=== PATIENT | female | born 1965 | race Caucasian/White ===

== ENCOUNTER 2019-09-03 09:11 | Outpatient (RCR) | payer OTHER, MEDICARE, SELFPAY | END 2019-12-02 23:59 | disposition home or self-care (01) | LOC: ANHDMC 09:11 | PROVIDERS: PCP Family Medicine; Visit Provider Family Medicine | DX: E11.65 Type 2 diabetes mellitus with hyperglycemia (principal); Z71.89 Other specified counseling | CPT/HCPCS: G0108 ==

== ENCOUNTER 2019-11-07 14:00 | Outpatient (CLI) | payer OTHER, MEDICARE, SELFPAY ==
--- NOTE | ~2019-11-07 | MM_ITS ---
EXAMINATION: MM diagnostic ling BI w crissy HISTORY: Bilateral breast masses TECHNIQUE: Craniocaudal, mediolateral, and mediolateral oblique 3-D tomosynthesis images of the breas ts were performed and synthetic 2-D images were generated. CAD analysis was submitted and interpreted . COMPARISON: 04/05/2019, 01/22/2018, 12/13/2016, 09/24/2015 BREAST PARENCHYMAL COMPOSITION: The breasts are heterogeneously dense, which may obscure small masses . FINDINGS: Scattered benign-appearing calcifications are present. There is no evidence of suspicious m ass, calcification, or architectural distortion in either breast to suggest malignancy. There has b een no suspicious interval change. IMPRESSION: 1. No mammographic evidence of malignancy. 2. Routine annual screening mammography is recommended. Patient was reportedly instructed to have tray nnual mammograms due to family history. If supplemental screening is necessary based on calculated ri sk, would recommend screening mammography and breast MRI at alternating six-month intervals. BI-RADS Category 2: Benign finding(s). Reviewed, dictated and finalized at location A. UCE LABORER IMPRESSION: 1. No mammographic evidence of malignancy. 2. Routine annual screening mammography is recommended. Patient was reportedly instructed to have biannual mammograms due to family history. If supplemental s creening is necessary based on calculated risk, would recommend screening mammo graphy and breast MRI at alternating six-month intervals. BI-RADS Category 2: Benign finding(s).
== END 2019-11-07 14:01 | disposition home or self-care (01) ==
LOC: ANHIMG 14:06
PROVIDERS: PCP Family Medicine; Visit Provider Nurse Practitioner Family
DX: R92.8 Other abnormal and inconclusive findings on diagnostic imaging of breast (principal); N63.10 Unspecified lump in the right breast, unspecified quadrant; N63.20 Unspecified lump in the left breast, unspecified quadrant
CPT/HCPCS: 77062; 77066; G0279

== ENCOUNTER 2020-08-12 07:30 | Outpatient (RCR) | payer OTHER, MEDICARE, SELFPAY ==
[2020-06-19 09:51] VITALS: PULSE 70
--- NOTE | 2020-07-22 08:21 | PCCPR ---
Addendum entered by Marta Ruelas RN 07/23/20 08:27: Divya called left message today still not feeling well. Original Note: Absent today, not feeling well.
== END 2020-08-12 09:11 | disposition home or self-care (01) ==
LOC: ANHCPREHAB 07:30
PROVIDERS: PCP Family Medicine; Visit Provider Internal Medicine Cardiovascular Disease
DX: I50.89 Other heart failure (principal)
CPT/HCPCS: 93798

== ENCOUNTER 2020-10-06 09:27 | Emergency (ER) | payer OTHER, MEDICARE, SELFPAY ==
--- NOTE | ~2020-10-06 | CT_ITS ---
EXAMINATION: CT lumbar spine wo [facility] EXAM DATE: 10/06/2020 10:03 INDICATION: Fall, posterior fusion. Back pain. Initial encounter. TECHNIQUE: Spiral CT lumbar spine was performed without contrast. Axial, coronal and sagittal images of the lumbar spine were reviewed. The dose-length product (DLP) for this examination was 879.02 mGy- cm. The exposure was tailored according to patient size (auto mA exposure control), and iterative re construction (ASIR) was used as additional dose reduction technique. There is no prior study for luis hargrove. FINDINGS: Anterior and interbody fusion L5-S1. No spondylolysis. The vertebral bodies are aligned in the AP dim ension. Mild disc disease from T11 through L5. Mild upper lumbar, moderate lower lumbar facet arthrop athy. There is no evidence of acute lumbar fracture. There is no disc space widening or traumatic v ertebral body subluxation suspected. Paraspinal soft tissue is unremarkable. Mild thoracolumbar sco liosis. A detailed level by level evaluation of spondylosis can be added as addendum if requested. IMPRESSION: 1. Intact L5-S1 fusion. No fracture. 2. Mild to moderate lumbar spondylosis. Reviewed, dictated and finalized at location A. T SYSTEM DIRECTOR
--- NOTE | ~2020-10-06 | CT_ITS ---
EXAMINATION: CT brain wo con DATE: 10/06/2020 10:03 INDICATION: Head pain post fall TECHNIQUE: Computed tomography (CT) of the head was performed without intravenous contrast. Sagittal and coronal reconstructions were performed. The mA was adjusted according to patient size. Iterative reconstruction technique was employed. The dose-length product was 605.33 mGy-cm. COMPARISON: MR dated 07/03/2018 FINDINGS: No fracture. No acute intracranial hemorrhage, acute infarction or abnormal extra axial fluid collect ion. Ventricles are normal and symmetric. No mass/mass effect. The orbits, paranasal sinuses and mast oid air cells are normal. IMPRESSION: 1. Normal brain. No fracture or acute intracranial process. Reviewed, dictated and finalized at location A. ILLERY MILLER HELPER
--- NOTE | ~2020-10-06 | CT_ITS ---
EXAMINATION: CT cervical spine wo con DATE: 10/06/2020 10:02 INDICATION: Head and back pain post fall TECHNIQUE: Computed tomography (CT) of the cervical spine was performed without intravenous contrast. Automated exposure control and iterative reconstruction technique were employed. The dose-length pro duct was 324.06 mGy-cm. COMPARISON: 06/18/2018 FINDINGS: Again seen is C5-C7 anterior spinal fusion with anterior plate and screw fixation and interbody fusio n devices. There is prominent streak artifact surrounding the interbody fusion devices. Alignment rem ains essentially anatomic. No acute fracture. Unfused vertebral body and disc heights are normal. No significant interval change in multilevel bilateral cervical facet osteoarthritis, severe on the left at C3-C4 and C4-C5 or results in mild bilateral neural foraminal stenosis. No central canal stenosis . Cervical soft tissues, airway and apices of lungs are unremarkable. IMPRESSION: 1. No acute osseous abnormality. 2. Cervical facet arthropathy and instrumented C5-C7 anterior spinal fusion. Reviewed, dictated and finalized at location A. MILL OPERATOR
[2020-10-06 09:30] VITALS: BP 145/92; PULSE 83; RESP 16; TEMP 36.7; O2SAT 100
--- NOTE | 2020-10-06 09:40 | ED.GENADULT ---
HPI - General Adult General Chief complaint: Fall Stated complaint: fall Time Seen by Provider: 10/06/20 09:30 Source: patient Mode of arrival: ambulatory Limitations: no limitations History of Present Illness HPI narrative: Patient presents with chief complaint of headache, foggy feeling, pain to the posterior aspect of her head, neck and low back after slipping on ice and falling in the [facility] parking lot. Patient states that she is also feeling burning sensations to her neck and low back where she had a fusion of her C6 and 7 and L5-S1 multiple years ago. Patient denies any loss of sensation or motor function to her upper or lower extremities. Patient denies loss of consciousness, changes in vision or hearing, vomiting. Patient states that she fell backwards. She states she did hit her left hand on the cement but that it does not have any tenderness at this time. She denies any other areas of pain or discomfort. Patient denies any chest pain, shortness of breath. Related Data Home Medications Medication Instructions Recorded Confirmed duloxetine 60 mg capsule,delayed 60 mg PO DAILY 08/22/19 06/19/20 release ranolazine 500 mg tablet,extended 500 mg PO Q12H 03/17/20 06/19/20 release,12 hr spironolactone 25 mg tablet 25 mg PO BID 06/15/20 06/19/20 aspirin [Aspirin Low Dose] 81 mg PO DAILY 06/19/20 06/19/20 cyclobenzaprine 5 mg PO BID PRN 06/19/20 06/19/20 gabapentin 200 mg PO TID 06/19/20 06/19/20 onabotulinumtoxinA [Botox] 200 unit IM ONCE 06/19/20 06/19/20 rizatriptan [Maxalt] See Rx Instructions PO .COMPLEX PRN 06/19/20 06/19/20 ropinirole 0.25 mg PO 06/19/20 carvedilol 25 mg PO BID 07/06/20 07/06/20 sacubitril-valsartan [Entresto] 1 tablet PO BID 07/06/20 07/06/20 ascorbic acid (vitamin C) [Vitamin 10/06/20 10/06/20 C] dapagliflozin [Farxiga] mg 10/06/20 insulin detemir U-100 [Levemir unit SUBCUT 10/06/20 FlexTouch U-100 Insuln] levothyroxine [Synthroid] 10/06/20 metformin mg PO 10/06/20 omeprazole 10/06/20 rizatriptan mg 10/06/20 ropinirole mg 10/06/20 sacubitril-valsartan [Entresto] tablet 10/06/20 spironolactone 10/06/20 Allergies Allergy/AdvReac Type Severity Reaction Status Date / Time amitriptyline Allergy Severe NIGHTMARES Verified 06/15/20 09:39 Sulfa (Sulfonamide Allergy Severe DRUG Verified 06/15/20 09:39 Antibiotics) INDUCED HEPATITIS trazodone Allergy Unknown SUICIDAL Verified 06/15/20 09:39 THOUGHTS baclofen AdvReac Nausea and Verified 10/06/20 09:45 Vomiting nitrofurantoin AdvReac Vomiting Verified 10/06/20 09:45 [From Macrobid] sumatriptan [From Imitrex] AdvReac Vomiting Verified 10/06/20 09:45 tizanidine AdvReac Hallucinati Verified 10/06/20 09:45 ng Review of Systems Review of Systems: Narrative: CONSTITUTIONAL: Denies fever, chills, or sweats. EYES: Denies visual changes, redness, or discharge. ENT: Denies rhinorrhea, congestion, sore throat, or otalgia. CARDIOVASCULAR: Denies chest pain, palpitations, or edema. RESPIRATORY: Denies cough or dyspnea. GASTROINTESTINAL: Denies abdominal pain, nausea, vomiting, or diarrhea. GENITOURINARY: Denies dysuria or hematuria. SKIN: Denies rash or itching. MUSCULOSKELETAL: Denies back pain, joint pain, or myalgia. NEUROLOGIC: Reports headache and tingling sensation denies headache, dizziness, or weakness. PSYCHIATRIC: Denies anxiety or depression. [facility] Past Medical History Medical History (Updated 10/06/20 @ 10:28 by Elizabeth Shen PA-C) Adult hypothyroidism Anxiety Arthritis Bronchitis Cervical spondylosis with myelopathy and radiculopathy Chronic back pain Chronic pain disorder DDD (degenerative disc disease) Depression Diabetes mellitus Fibromyalgia HTN (hypertension) Hyperlipidemia Major depressive disorder, recurrent, moderate Migraine Muscle spasm Ovarian cyst Peripheral neuropathy Pneumonia Sleep apnea in adult Thyroid ca Type 2 diabetes mellitus without complications UTI (urinar
--- NOTE | 2020-10-06 10:25 | PC.NURSE ---
C-COLLAR REMOVED PER ALECIA MASS ORDER
== END 2020-10-06 10:45 | disposition home or self-care (01) ==
PROVIDERS: Emergency Provider Emergency Medicine; PCP Internal Medicine
DX: S09.90XA Unspecified injury of head, initial encounter (principal); S16.1XXA Strain of muscle, fascia and tendon at neck level, initial encounter; S39.012A Strain of muscle, fascia and tendon of lower back, initial encounter; M79.7 Fibromyalgia; E78.5 Hyperlipidemia, unspecified; I10 Essential (primary) hypertension; E11.42 Type 2 diabetes mellitus with diabetic polyneuropathy; G47.30 Sleep apnea, unspecified; Z87.440 Personal history of urinary (tract) infections; Z85.850 Personal history of malignant neoplasm of thyroid; Z79.82 Long term (current) use of aspirin; Z79.4 Long term (current) use of insulin; E89.0 Postprocedural hypothyroidism; Z98.1 Arthrodesis status; Z87.891 Personal history of nicotine dependence; M47.816 Spondylosis without myelopathy or radiculopathy, lumbar region; M47.12 Other spondylosis with myelopathy, cervical region; M47.22 Other spondylosis with radiculopathy, cervical region; W00.0XXA Fall on same level due to ice and snow, initial encounter
CPT/HCPCS: 70450; 72125; 72131; 99284; L0140

== ENCOUNTER 2022-09-01 18:36 | Inpatient (IN) | payer OTHER, MEDICARE, SELFPAY ==
[2022-09-01] VITALS (31 sets, daily range): BP systolic 92–117; BP diastolic 52–92; PULSE 100–126; RESP 14–35; TEMP 36.7–36.8; O2SAT 84–99
--- NOTE | ~2022-09-01 | XR_ITS ---
EXAMINATION: XR chest 1V portable INDICATION: Shortness of breath TECHNIQUE: Portable AP chest at 0651 hours COMPARISON: 09/01/2022 FINDINGS: There is elevation of the right hemidiaphragm. There are airspace opacities throughout all lung zones with interval worsening. No pleural effusion or pneumothorax. The heart size is normal. Wood rgical changes are noted in the cervical and thoracolumbar spine. IMPRESSION: 1. Diffuse lung disease, consistent with pneumonia and/or pulmonary edema. Reviewed, dictated and finalized at location A. TICIAN APPRENTICE
--- NOTE | ~2022-09-01 | XR_ITS ---
Portable chest x-ray Comparison: 09/07/2022 Clinical History: Chest pain Findings: Extensive hazy pulmonary disease again present, most compatible pulmonary edema. No pleura l effusions. Cardiomediastinal silhouette is stable. Stable extensive spinal fixation hardware. Impression: Stable extensive ground glass pulmonary disease. Correlate for pulmonary edema versus infection. Reviewed, dictated and finalized at [facility]. KROOM SUPERVISOR Impression: Stable extensive ground glass pulmonary disease. Correlate for pulmonary edema versus infection.
--- NOTE | ~2022-09-01 | XR_ITS ---
EXAMINATION: XR chest 1V portable DATE: 09/01/2022 20:19 INDICATION: Shortness of breath TECHNIQUE: frontal view of the chest was obtained. COMPARISON: Chest radiograph dated 09/22/2019 FINDINGS: Chronic elevation the right hemidiaphragm. Mild left apical pleural-parenchymal scarring. No other ai rspace opacities, pulmonary edema, pleural effusion or pneumothorax. The cardiomediastinal silhouette is within normal limits for AP technique. C5-C7 anterior spinal fusion with interbody fusion device and anterior plate-screw fixation. Partially visualized instrumented posterior spinal fusion with rebecca ateral vertical ailyn and pedicle screw fixation at the lower thoracic spine which extends into the upp er lumbar spine and beyond the inferior margin of the [id number]. IMPRESSION: 1. Chronic elevation the right hemidiaphragm. Reviewed, dictated and finalized at location A. RPRISE APPLICATION DEVELOPER
--- NOTE | ~2022-09-01 | CT_ITS ---
EXAMINATION: CTA chest PE protocol DATE: 09/01/2022 22:43 INDICATION: Shortness of breath TECHNIQUE: Computed tomography (CT) pulmonary angiogram of the chest was performed with 100 mL Omnipa que-350 intravenous contrast. Additional 3D reconstructions utilizing coronal maximum intensity proje ction (MIP) were performed. Automated exposure control and iterative reconstruction technique were em ployed. The dose-length product was 331.55 mGy-cm. COMPARISON: None FINDINGS: . contrast opacification of the pulmonary arteries. There is mild streak artifact from dense contrast in the superior vena cava and right atrium. Mild scattered respiratory motion artifact which decreas es sensitivity in some of the subsegmental pulmonary arteries particularly at the lung bases. No evid ent pulmonary embolism. Compressive atelectasis along the chronically elevated right hemidiaphragm. T here is additional mild dependent atelectasis in the bilateral lower lobes. Additional dependent pred ominant groundglass opacities in both lungs without evidence of the line thickening to suggest pulmon silvana edema and this likely represents additional mild atelectasis related to expiratory phase of imagi ng with concave posterior margins of the trachea. There is significant decrease in AP diameter of the trachea as well as a concave posterior margin to the bilateral mainstem bronchi which suggests trach eomalacia. No pleural effusion or pneumothorax. Heart size is normal. Atherosclerotic coronary artery calcification. No pericardial effusion. Thoracic aorta is normal in caliber with no dissection. Enla rgement of the central pulmonary arteries consistent with pulmonary arterial hypertension. No patholo gically enlarged thoracic lymphadenopathy. Nearly indiscernible mass with avidly enhancing stellate p attern of prominently enhancing central arteries extending over a 3.7 x 2.3 cm region in segment 6 of the liver. This is located at the site of the lesion seen on prior MRI dated 06/12/2012 at which time the lesion demonstrated enhancement characteristics favoring focal nodular hyperplasia. Partially vi sualized instrumented C5-C7 anterior spinal fusion with interbody fusion devices and anterior plate a nd screw fixation. Bilateral vertical ailyn and pedicle screw fixation at T11 and extending caudally be yond the inferior margin of the [id number]. IMPRESSION: 1. No pulmonary embolism. Sensitivity mildly decreased in some of the smaller subsegmental pulmonary arteries at the the lung bases due to respiratory motion. 2. Lower lung and dependent predominant atelectasis greatest along the chronically elevated right hem idiaphragm. 3. Suggestion of tracheomalacia. 4. Ill-defined chronic enhancing mass in the right hepatic lobe at the site of an enhancing mass with temporal enhancement pattern on prior MRI dated 06/12/2012 which along with the chronicity would be m ost consistent with focal nodular hyperplasia. Reviewed, dictated and finalized at location A. K STITCHER IMPRESSION: 1. No pulmonary embolism. Sensitivity mildly decreased in some of the smaller s ubsegmental pulmonary arteries at the the lung bases due to respiratory motion. 2. Lower lung and dependent predominant atelectasis greatest along the chronica lly elevated right hemidiaphragm. 3. Suggestion of tracheomalacia. 4. Ill-defined chronic enhancing mass in the right hepatic lobe at the site of an enhancing mass with temporal enhancement pattern on prior MRI dated 2 which along with the chronicity would be most consistent with focal nodular h yperplasia.
--- NOTE | ~2022-09-01 | XR_ITS ---
Portable chest x-ray Comparison: 09/05/2022 Clinical History: Covid 19 pneumonia Findings: Groundglass pulmonary disease, predominantly bilateral upper lobes is present, with some i nterval improvement in right lung findings from prior exam. Left lung findings are similar. No pleura l effusion or pneumothorax. Cardiomediastinal silhouette is stable. Thoracolumbar spinal fixation flores rdware, as well as separate cervical fixation hardware, again partially imaged. Impression: Bilateral groundglass pulmonary disease, improved in the right lung. Findings could reflect improving pneumonia. Reviewed, dictated and finalized at location M. ITIONISTS Impression: Bilateral groundglass pulmonary disease, improved in the right lung. Findings c ould reflect improving pneumonia.
--- NOTE | ~2022-09-01 | XR_ITS ---
Portable chest x-ray Comparison: 09/03/2022 Clinical History: Pneumonia Findings: Extensive bilateral airspace consolidation is present, right lung worse than left. No pleu ral effusions. Cardiomediastinal silhouette is stable. Stable thoracolumbar spinal fixation hardware , partially imaged. Impression: Extensive bilateral airspace consolidation, right worse in length. Correlate for advanced [place] v ersus bilateral pneumonia. Reviewed, dictated and finalized at location [] [facility] Impression: Extensive bilateral airspace consolidation, right worse in length. Correlate fo r advanced [place] versus bilateral pneumonia.
--- NOTE | 2022-09-01 18:43 | ECG_ITS ---
Measurements Intervals [place] Rate: 112 P: 54 PA: 124 QRS: 4 QRSD: 84 T: 62 QT: 310 QTc: 423 Interpretive Statements SINUS TACHYCARDIA NONSPECIFIC T-WAVE ABNORMALITY ABNORMAL RHYTHM ECG COMPARED TO ECG 09/22/2019 15:48:16 SINUS TACHYCARDIA NOW PRESENT T-WAVE ABNORMALITY NOW PRESENT Electronically Signed On 09-01-2022 20:05:43 SEMICONDUCTOR PACKAGES PLATEMAKER by Lianna Davidson M.D.
[2022-09-01 19:48] LABS: Basophils Percent Auto 0.4 % (0.2-1.2); Eosinophils Percent Auto 0.3 % (0-4.4); Hematocrit 38.4 % (37.0-47.0); Hemoglobin 11.9 g/dL (12.0-15.0); Immature Granulocyte Absolute 0.24 K/mm3 (0.00-0.031); Immature Granulocyte Percent A 2.2 % (0-0.5); Lymphocytes Absolute Auto 1.28 K/mm3 (0.9-3.2); Lymphocytes Percent Auto 11.5 % (18.3-44.2); Mean Corpuscular Hemoglobin 28.9 pg (26-34); Mean Corpuscular Volume 93.2 fl (80-100); Monocytes Absolute Auto 0.6 K/mm3 (0.1-0.6); Monocytes Percent Auto 5.3 % (2.6-8.5); Neutrophils Absolute Auto 8.9 K/mm3 (1.3-6.7); Neutrophils Percent Auto 80.3 % (45.5-73.1); Nucleated Red Blood Cells Perc 0.4 % (0.0-0.2); Platelet Count Result 272 k/mm3 (150-375); Red Blood Count 4.12 M/mm3 (4.2-5.4); Red Cell Distribution Width 16.6 % (11.5-14.5); White Blood Count 11.1 K/mm3 (4.5-10.0)
[2022-09-01 20:05] LABS: Alanine Aminotransferase 33 U/L (6-35); Albumin Level 4.2 g/dL (3.5-5.1); Alkaline Phosphatase 137 U/L (38-126); Anion Gap 7 mmol/L (8-16); Aspartate Amino Transferase 18 U/L (14-36); Bilirubin,Total 0.3 mg/dL (0.2-1.3); Blood Urea Nitrogen 20 mg/dL (7-17); Calcium 9.2 mg/dL (8.4-10.2); Carbon Dioxide 33 mmol/L (22-30); Chloride 93 mmol/L (98-107); Estimated Glomerular Filt Rate > 60; Glucose 164 mg/dL (65-110); Potassium 4.1 mmol/L (3.4-5.0); Sodium 133 mmol/L (137-145)
[2022-09-01] MEDS: LORazepam INJ (*CRX) 2 MG/ML VIAL 0.5 MG IV PUSH (20:26)
[2022-09-01] MEDS: ONDANSETRON INJ 4 MG/2 ML VIAL IV PUSH (20:26)
[2022-09-01] MEDS: HYDROmorphone HCL INJ (*CRX) 1 MG/ML SYR 0.5 MG IV PUSH (20:32)
--- NOTE | 2022-09-01 21:53 | ED.GENADULT ---
HPI - General Adult General Chief complaint: Shortness of Breath/Dyspnea Stated complaint: short of breath, back pain Time Seen by Provider: 09/01/22 19:31 Source: patient and family Mode of arrival: EMS Limitations: no limitations History of Present Illness HPI narrative: 56-year-old with a history of hypertension, hypothyroidism, diabetes burst fracture L4 area L5 s/p surgery done at [facility] in June 2022 was brought in from home with complaints of increased back spasms since early this afternoon. Patient states that she has taken hydrocodone and Flexeril with very minimal relief she also complains of shortness of breath. She denies any fever or chills. Has occasional cough. Onset (ago): day(s) (1) Location: back Severity: moderate Quality: aching Pain Consistency: intermittent Relieving factors: none Exacerbating factors: none Associated symptoms: shortness of breath Related Data Home Medications Medication Instructions Recorded Confirmed spironolactone 25 mg tablet 25 mg PO BID 06/15/20 06/19/20 aspirin 81 mg tablet,delayed 81 mg PO DAILY 06/19/20 06/19/20 release (Nuria Low Dose Aspirin) cyclobenzaprine 5 mg tablet 5 mg PO BID PRN Muscle Spasm 06/19/20 06/19/20 ropinirole 0.25 mg tablet 0.25 mg PO 06/19/20 ascorbic acid (vitamin C) 500 mg 10/06/20 10/06/20 chewable tablet (Vitamin C) rizatriptan 10 mg tablet mg 10/06/20 Allergies Allergy/AdvReac Type Severity Reaction Status Date / Time amitriptyline Allergy Severe NIGHTMARES Verified 09/01/22 20:21 Sulfa (Sulfonamide Allergy Severe DRUG Verified 09/01/22 20:21 Antibiotics) INDUCED HEPATITIS trazodone Allergy Unknown SUICIDAL Verified 09/01/22 20:21 THOUGHTS baclofen AdvReac Nausea and Verified 09/01/22 20:21 Vomiting nitrofurantoin AdvReac Vomiting Verified 09/01/22 20:21 [From Macrobid] sumatriptan [From Imitrex] AdvReac Vomiting Verified 09/01/22 20:21 tizanidine AdvReac Hallucinati Verified 09/01/22 20:21 ng Review of Systems Review of Systems: All systems reviewed & are unremarkable except as noted in HPI and below Constitutional: Constitutional: Reports no additional constitutional complaints Eyes: Eyes: Reports no additional eye complaints ENT: Reports system reviewed and no additional complaints, except as documented Cardiovascular: Cardiovascular: Reports no additional cardiovascular complaints Respiratory: Respiratory: Reports as per HPI Gastrointestinal: Gastrointestinal: Reports no additional gastrointestinal complaints Musculoskeletal: Musculoskeletal: Reports as per HPI Neurologic: Reports system reviewed and no additional complaints, except as documented Psychiatric: Psychiatric: Reports no additional psychiatric complaints PMFSH Past Medical History Medical History Adult hypothyroidism Anxiety Arthritis Bronchitis Cervical spondylosis with myelopathy and radiculopathy Chronic back pain Chronic pain disorder DDD (degenerative disc disease) Depression Diabetes mellitus Fibromyalgia HTN (hypertension) Hyperlipidemia Major depressive disorder, recurrent, moderate Migraine Muscle spasm Ovarian cyst Peripheral neuropathy Pneumonia Sleep apnea in adult Thyroid ca Type 2 diabetes mellitus without complications UTI (urinary tract infection) Surgical History Surgical History H/O thyroidectomy History of hysterectomy History of spinal fusion S/P cervical spinal fusion Family History Family History Grandparent Diabetes mellitus, Onset Age: 200 Family history of lupus erythematosus, Onset Age: 200 Mother Family history of malignant neoplasm of breast in first degree relative Hypertension Cerebrovascular accident Father Family history of coronary artery disease, Onset Age: 40 Hypertension
--- NOTE | 2022-09-01 22:00 | PM.IMHP ---
H&P: HPI History of Present Illness Date/Time: 09/01/22 22:00 Chief Complaint: SOB Narrative: THIS IS A 56-YEAR-OLD FEMALE with past medical history significant for type diabetes mellitus, dyslipidemia, degenerative joint disease, diabetic peripheral neuropathy. patient presented to emergency room due to shortness of breath. patient is status post back surgery she was recently discharged from [facility] went home, patient is currently wearing a brace. she participated with physical therapy in things went well, patient denies any fevers, rigors, chills. Preliminary workup was significant for. CTA of chest IMPRESSION: 1. No pulmonary embolism. Sensitivity mildly decreased in some of the smaller subsegmental pulmonary arteries at the the lung bases due to respiratory motion. 2. Lower lung and dependent predominant atelectasis greatest along the chronically elevated right hemidiaphragm. 3. Suggestion of tracheomalacia. 4. Ill-defined chronic enhancing mass in the right hepatic lobe at the site of an enhancing mass with temporal enhancement pattern on prior MRI dated 06/12/2012 which along with the chronicity would be most consistent with focal nodular hyperplasia. chest x-ray IMPRESSION: 1. Chronic elevation the right hemidiaphragm. Review of Systems Review of Systems: shortness of breath Constitutional: Constitutional: Reports weakness Eyes: Eyes: Denies change in vision ENT: Denies dysphagia, Denies vertigo, Denies dizziness and Denies odynophagia Cardiovascular: Cardiovascular: Denies chest pain, Denies lightheadedness and Denies palpitations Respiratory: Respiratory: Denies chest congestion, Denies cough, Denies excessive phlegm production, Denies pain on inspiration and Reports dyspnea Gastrointestinal: Gastrointestinal: Denies abdominal pain, Denies dyspepsia, Denies heartburn, Denies diarrhea, Denies nausea and Denies vomiting Genitourinary: Genitourinary: Denies dysuria Musculoskeletal: Musculoskeletal: Reports back pain Integumentary/Breasts: Skin/Breast: Denies rash Neurologic: Denies vertigo, Denies dizziness, Denies focal weakness and Denies Sensory deficit (Neuro) Psychiatric: Psychiatric: Reports no additional psychiatric complaints and Reports as per HPI Endocrine: Endocrine: Denies cold intolerance, Denies flushing, Denies heat intolerance, Denies polyphagia, Denies polydipsia and Denies palpitations Hematologic/Lymphatic: Hematologic/Lymphatic: Reports no additional hematologic/lymphatic complaints and Reports as per HPI Allergic/Immunologic: Allergic/Immunologic: Reports no additional allergic/immunologic complaints and Reports as per HPI [facility] Past Medical History Medical History (Updated 09/02/22 @ 03:37 by Arron Coello MD) Adult hypothyroidism Anxiety Arthritis Bronchitis Cervical spondylosis with myelopathy and radiculopathy Chronic back pain Chronic pain disorder DDD (degenerative disc disease) Depression Diabetes mellitus Fibromyalgia HTN (hypertension) Hyperlipidemia Major depressive disorder, recurrent, moderate Migraine Muscle spasm Ovarian cyst Peripheral neuropathy Pneumonia Sleep apnea in adult Thyroid ca Type 2 diabetes mellitus without complications UTI (urinary tract infection) Surgical History Surgical History H/O thyroidectomy History of hysterectomy History of spinal fusion S/P cervical spinal fusion Family History Family History Grandparent Diabetes mellitus, Onset Age: 200 Family history of lupus erythematosus, Onset Age: 200 Mother Family history of malignant neoplasm of breast in first degree relative Hypertension Cerebrovascular accident Father Family history of coronary artery disease, Onset Age: 40 Hypertension Chronic obstructive pulmonary disease Other Family history of malignant neoplasm of male
[2022-09-01 23:55] LABS: Influenza A QL RT-PCR Negative (Negative); Influenza B QL RT-PCR Negative (Negative); SARS-CoV-2 RNA PCR Positive
[2022-09-02] VITALS (15 sets, daily range): BP systolic 76–138; BP diastolic 54–76; PULSE 97–116; RESP 18–21; TEMP 36.3–36.7; O2SAT 94–100; BMI 27.9
--- NOTE | 2022-09-02 00:32 | ADMGEN ---
This patient, Maggie Parra, was admitted to Medical Room 244-. Patient/family oriented to hospital policies and general routines including ID bracelet, bed and alarms, visiting hours, pain management, procedures, bathroom and other care routines, personal items, smoking policy, room service/diet, and visiting hours. Information on how to activate the Rapid Response Team has been discussed. Patient/Family are encouraged to report perceived risks to care and to ask questions if they do not understand what they are told or what they should do.
[2022-09-02 06:04] LABS: Basophils Percent Auto 0.2 % (0.2-1.2); Eosinophils Percent Auto 0.1 % (0-4.4); Hematocrit 34.4 % (37.0-47.0); Hemoglobin 10.7 g/dL (12.0-15.0); Immature Granulocyte Absolute 0.22 K/mm3 (0.00-0.031); Immature Granulocyte Percent A 2.2 % (0-0.5); Lymphocytes Absolute Auto 1.12 K/mm3 (0.9-3.2); Lymphocytes Percent Auto 11.1 % (18.3-44.2); Mean Corpuscular HGB Conc 31.1 g/dl (32-36); Mean Corpuscular Hemoglobin 28.9 pg (26-34); Mean Platelet Volume 10.2 fl (7.4-10.4); Monocytes Absolute Auto 0.5 K/mm3 (0.1-0.6); Monocytes Percent Auto 4.7 % (2.6-8.5); Neutrophils Absolute Auto 8.2 K/mm3 (1.3-6.7); Neutrophils Percent Auto 81.7 % (45.5-73.1); Platelet Count Result 254 k/mm3 (150-375); Red Cell Distribution Width 16.5 % (11.5-14.5); White Blood Count 10.1 K/mm3 (4.5-10.0)
[2022-09-02 06:28] LABS: Anion Gap 5 mmol/L (8-16); Blood Urea Nitrogen 16 mg/dL (7-17); Calcium 8.6 mg/dL (8.4-10.2); Carbon Dioxide 34 mmol/L (22-30); Chloride 92 mmol/L (98-107); Estimated CRCL calculation 82 ml/min; Estimated Glomerular Filt Rate > 60; Glucose 159 mg/dL (65-110); Sodium 131 mmol/L (137-145)
[2022-09-02] MEDS: HYDROcodone/acetaminophen (*CRX) 7.5-325 MG TABLET 1 TAB PO ×2 (06:51→20:16)
[2022-09-02 09:00] LABS: Glucose Point of Care 209 mg/dl (65-105)
[2022-09-02] MEDS: SODIUM CHLORIDE 0.9% IV 1,000 ML 100 ML IV CONT ×2 (09:43→17:50)
[2022-09-02] MEDS: ASPIRIN 81 MG ENTERIC TABLET PO (09:48)
[2022-09-02] MEDS: carvediloL 12.5 MG TABLET 25 MG PO (09:49)
[2022-09-02] MEDS: ATORVASTATIN 20 MG TABLET PO (09:49)
[2022-09-02] MEDS: INSULIN GLARGINE (*BKC) 100 UNITS/ML 30 UNITS SUB-Q (09:50)
[2022-09-02] MEDS: INSULIN ASPART (*BKC) 100 UNITS/ML SUB-Q (09:52)
[2022-09-02] MEDS: DOCUSATE SODIUM 100 MG CAPSULE PO ×2 (09:54→17:53)
[2022-09-02] MEDS: DULoxetine HCL 30 MG CAPSULE.DR 60 MG PO (09:54)
[2022-09-02] MEDS: FAMOTIDINE 20 MG TABLET PO (09:55)
[2022-09-02] MEDS: PANTOPRAZOLE 40 MG TABLET PO ×2 (09:55→17:51)
[2022-09-02] MEDS: MICONAZOLE NITRATE 2% CREAM 30 GM TUBE 1 APPLIC TOPICAL ×2 (09:55→17:51)
[2022-09-02] MEDS: GABAPENTIN 300 MG CAPSULE PO (09:55)
[2022-09-02] MEDS: SENNOSIDES 8.6 MG TABLET PO ×2 (09:56→17:51)
[2022-09-02] MEDS: SPIRONOLACTONE 25 MG TABLET PO (09:56)
[2022-09-02] MEDS: rOPINIRole HCL 0.25 MG TABLET PO (09:56)
[2022-09-02] MEDS: TERBINAFINE HCL 250 MG TABLET PO (09:57)
--- NOTE | 2022-09-02 11:45 | PM.IMPN ---
Progress Note: A&P Assessment and Plan (1) Pneumonia due to COVID-19 virus: Code(s): U07.1 - COVID-19; J12.82 - Pneumonia due to coronavirus disease 2019 Status: Acute Assessment and Plan: chest x-ray shows elevation the right hemidiaphragm CTA shows no PE however does show lower lung and dependent prominent atelectasis and hepatic lobe mass supplemental oxygen currently 2 L start patient on remdesivir and dexamethasone endorse a cough sputum culture ordered blood cultures ordered continue IV vancomycin, cefepime and azithromycin white blood cell count trending down at 10.1 today trend labs positive for COVID on 09/01/2022 (2) Acute respiratory distress syndrome (ARDS) due to 2019 novel coronavirus: Code(s): U07.1 - COVID-19; J80 - Acute respiratory distress syndrome Status: Acute Assessment and Plan: currently patient on 2 L nasal cannula unable to wean is the patient's saturations dropped into the high 80s patient gets accessory muscle breathing and panting and tripod positioning related to COVID-19 continue Trend respiratory status COVID-19 medications on board (3) Benign essential HTN: Code(s): I10 - Essential (primary) hypertension Status: Acute Assessment and Plan: Current BP 98/64 hold home Entresto, spironolactone, furosemide, carvedilol due to hypotension Trend Blood pressure Adjust therapy as indicated (4) Type 2 diabetes mellitus without complications: Code(s): E11.9 - Type 2 diabetes mellitus without complications Status: Acute Assessment and Plan: current glucose 159 Insulin Lispro sliding scale Accu-checks qAc and HS Hold oral hypoglycemics metformin and Farxiga Obtain a HgbA1c (5) Fibromyalgia: Code(s): M79.7 - Fibromyalgia Status: Acute Assessment and Plan: continue home meds (6) Hyperlipidemia: Code(s): E78.5 - Hyperlipidemia, unspecified Status: Acute Assessment and Plan: continue atorvastatin lipid panel in the a.m. (7) Sepsis: Code(s): A41.9 - Sepsis, unspecified organism Status: Acute Assessment and Plan: patient meets SIRS criteria with leukocytosis, tachycardia, tachypnea, source of infection source of infection appears to be pneumonia patient also is hypotensive the blood pressure in the 70s and 80s systolic IV fluids ordered LR bolus x2 given IV antibiotics on board blood cultures pending sputum culture ordered (8) Hypotension: Code(s): I95.9 - Hypotension, unspecified Status: Acute Assessment and Plan: blood pressure is noted 70-80s systolic IV fluids given trend blood pressure seems to be stabilizing with fluid adjust therapy as indicated Time Spent With Patient Time with patient: Greater than 35 minutes Subjective Date/time seen: 09/02/22 114 Interval history: 09/02/221144 patient states that she is doing okay right now. She did state that she is having a little bit of chest pain and shortness of breath however she does endorse pain all over. She currently is on 2 L nasal cannula and unable to be weaned. Blood pressure is noted to be low in the 80s. She does rate her pain a 10 on 10. She denies any sweats, fevers, chills, nausea, vomiting, diarrhea or constipation. She does feel very cold but states that she likes it that way. was called by the nurse around 1600 and was told that the blood pressure was in the 70s systolic. Went down to manually took a blood pressure and blood pressure was 82/40. Started a new IV and gave her an IV bolus of 2 L. blood pressure has been stable and was in the 90 systolic before departing. 09/01/22? 22:00 ?THIS IS A 56-YEAR-OLD FEMALE with past medical history significant for type
--- NOTE | 2022-09-02 11:45 | P.PNIM_ITS ---
Progress Note: A&P Assessment and Plan (1) Pneumonia due to COVID-19 virus: Code(s): U07.1 - COVID-19; J12.82 - Pneumonia due to coronavirus disease 2019 Status: Acute Assessment and Plan: * chest x-ray shows elevation the right hemidiaphragm * CTA shows no PE however does show lower lung and dependent prominent atelectasis and hepatic lobe mass * supplemental oxygen currently 2 L * start patient on remdesivir and dexamethasone * endorse a cough sputum culture ordered * blood cultures ordered * continue IV vancomycin, cefepime and azithromycin * white blood cell count trending down at 10.1 today * trend labs * positive for COVID on 09/01/2022 (2) Acute respiratory distress syndrome (ARDS) due to 2019 novel coronavirus: Code(s): U07.1 - COVID-19; J80 - Acute respiratory distress syndrome Status: Acute Assessment and Plan: * currently patient on 2 L nasal cannula * unable to wean is the patient's saturations dropped into the high 80s patient gets accessory muscle breathing and panting and tripod positioning * related to COVID-19 * continue Trend respiratory status * COVID-19 medications on board (3) Benign essential HTN: Code(s): I10 - Essential (primary) hypertension Status: Acute Assessment and Plan: * Current BP 98/64 * hold home Entresto, spironolactone, furosemide, carvedilol due to hypotension * Trend Blood pressure * Adjust therapy as indicated (4) Type 2 diabetes mellitus without complications: Code(s): E11.9 - Type 2 diabetes mellitus without complications Status: Acute Assessment and Plan: * current glucose 159 * Insulin Lispro sliding scale * Accu-checks qAc and HS * Hold oral hypoglycemics metformin and Farxiga * Obtain a HgbA1c (5) Fibromyalgia: Code(s): M79.7 - Fibromyalgia Status: Acute Assessment and Plan: * continue home meds (6) Hyperlipidemia: Code(s): E78.5 - Hyperlipidemia, unspecified Status: Acute Assessment and Plan: * continue atorvastatin * lipid panel in the a.m. (7) Sepsis: Code(s): A41.9 - Sepsis, unspecified organism Status: Acute Assessment and Plan: * patient meets SIRS criteria with leukocytosis, tachycardia, tachypnea, source of infection * source of infection appears to be pneumonia * patient also is hypotensive the blood pressure in the 70s and 80s systolic * IV fluids ordered * LR bolus x2 given * IV antibiotics on board * blood cultures pending * sputum culture ordered (8) Hypotension: Code(s): I95.9 - Hypotension, unspecified Status: Acute Assessment and Plan: * blood pressure is noted 70-80s systolic * IV fluids given * trend blood pressure * seems to be stabilizing with fluid * adjust therapy as indicated Time Spent With Patient Time with patient: Greater than 35 minutes Subjective Date/time seen: 09/02/22 1145 Interval history: 09/02/22 114 patient states that she is doing okay right now. She did state that she is having a little bit of chest pain and shortness of breath however she does endorse
[2022-09-02 12:21] LABS: Glucose Point of Care 181 mg/dl (65-105)
[2022-09-02] MEDS: HYDROmorphone HCL INJ (*CRX) 1 MG/ML SYR 0.5 MG IV PUSH (12:56)
[2022-09-02] MEDS: SODIUM CHLORIDE 0.9% IV 500 ML 999 ML IV CONT (13:40)
[2022-09-02] MEDS: HEPARIN SODIUM 5,000 UNITS/ML VIAL 5000 UNITS SUB-Q ×2 (15:22→23:03)
[2022-09-02] MEDS: LACTATED RINGERS 1,000 ML 999 ML IV CONT (15:59)
[2022-09-02 17:45] LABS: Glucose Point of Care 189 mg/dl (65-105)
[2022-09-02 17:50] LABS: Alanine Aminotransferase 24 U/L (6-35)
[2022-09-02] MEDS: oxyCODONE HCL (*CRX) 5 MG TAB IR 10 MG PO ×2 (17:53→23:04)
[2022-09-02 17:59] LABS: INR 1.1; Prothrombin Time 13.5 Seconds (11.1-14.7)
[2022-09-02] MEDS: REMDESIVIR 200 MG/NS 250 ML 200 MG/250 ML BAG 250 MG IVPB (18:39)
[2022-09-02] MEDS: PREGABALIN (*CRX) 75 MG CAPSULE PO (20:16)
[2022-09-02] MEDS: CYCLOBENZAPRINE HCL 5 MG TABLET PO (20:16)
[2022-09-03] VITALS (9 sets, daily range): BP systolic 103–110; BP diastolic 64–80; PULSE 63–106; RESP 18; TEMP 36.1–36.8; O2SAT 92–97
--- NOTE | 2022-09-03 | ECHO_ITS ---
Patient Info Name: Maggie Parra Age: 56 years : 1965 Gender: Female Ht: 63 in Wt: 157 lbs BSA: 1.80 m2 HR: 111 bpm BP: 110 / 80 mmHg Heart Rhythm: Tachycardia, Sinus Rhythm Exam Date: 09/03/2022 1:12 PM Exam Location: [facility] Card Pulmonary Patient Status: Inpatient Admit Date: 09/01/2022 Staff Ordering Physician: Graham Ngo Drug Safety Assistant: Vicki Noel RDCS Attending Provider: Arron Coello MD Referring Physician: Huber MARTÍNEZ; Exam Type: CA echo doppler color flow Study Info Indications R06.02 - Shortness of breath Complete two-dimensional, color flow and Doppler transthoracic echocardiogram is performed. Summary 1. Complete two-dimensional, color flow and Doppler transthoracic echocardiogram is performed. 2. Mild left ventricular enlargement with normal thickness. Moderate global hypokinesis present with severe hypokinesis to akinesis of the proximal and mid inferior septal and inferolateral segments.. Ejection fraction measured 35%, visually 30-35%. Diastolic dysfunction is present. 3. Left atrial chamber dimension is mildly enlarged. 4. There is mild tricuspid valve regurgitation. 5. Sinus tachycardia. Left Ventricle Left ventricular chamber dimension is mildly enlarged. Left ventricular systolic function is normal, estimated at 30-35%. There is no increased left ventricular wall thickness. Left ventricular septal wall motion is normal. The left ventricular diastolic function is abnormal. Right Ventricle Right ventricular chamber dimension is normal. Right ventricular systolic function is normal. Left Atria Left atrial chamber dimension is mildly enlarged. Right Atria Right atrial chamber dimension is normal. Aortic Valve The aortic valve is trileaflet. There is no aortic valve sclerosis. There is no aortic valve stenosis. There is no aortic valve regurgitation. Pulmonic Valve The pulmonic valve is normal. There is no pulmonic valve stenosis. There is no pulmonic regurgitation. Mitral Valve The mitral valve has normal leaflets. There is no mitral valve stenosis. There is trace mitral valve regurgitation. Tricuspid Valve The tricuspid valve leaflets are normal. There is no significant tricuspid valve stenosis. There is mild tricuspid valve regurgitation. No pulmonary hypertension, estimated pulmonary arterial systolic pressure is Empty. Pericardium/Pleural The pericardium appears normal. There is no pericardial effusion. Inferior Vena Cava Normal inferior vena cava with >50% collapse upon inspiration consistent with Empty right atrial pressure, 10 mmHg. Aorta The aortic root size at the sinus of Valsalva is normal. The prox ascending aorta size is normal. Left Ventricular Outflow Tract Name Value Normal LVOT 2D LVOT Diameter 2.0 cm LVOT Doppler LVOT Peak Gradient 6 mmHg LVOT Mean Gradient 4 mmHg LVOT VTI 20 cm LVOT VTI/AV VTI Ratio 0.8 LVOT Stroke Volume 60 ml
[2022-09-03] MEDS: HYDROcodone/acetaminophen (*CRX) 7.5-325 MG TABLET 1 TAB PO ×2 (03:41→20:17)
[2022-09-03 05:27] LABS: Basophils Percent Auto 0.1 % (0.2-1.2); Hematocrit 28.8 % (37.0-47.0); Hemoglobin 8.9 g/dL (12.0-15.0); Immature Granulocyte Absolute 0.18 K/mm3 (0.00-0.031); Immature Granulocyte Percent A 2.1 % (0-0.5); Lymphocytes Absolute Auto 0.72 K/mm3 (0.9-3.2); Lymphocytes Percent Auto 8.4 % (18.3-44.2); Mean Corpuscular HGB Conc 30.9 g/dl (32-36); Mean Corpuscular Hemoglobin 28.3 pg (26-34); Mean Corpuscular Volume 91.7 fl (80-100); Mean Platelet Volume 10.7 fl (7.4-10.4); Monocytes Absolute Auto 0.2 K/mm3 (0.1-0.6); Monocytes Percent Auto 2.6 % (2.6-8.5); Neutrophils Absolute Auto 7.4 K/mm3 (1.3-6.7); Neutrophils Percent Auto 86.8 % (45.5-73.1); Platelet Count Result 213 k/mm3 (150-375); Red Blood Count 3.14 M/mm3 (4.2-5.4); Red Cell Distribution Width 16.3 % (11.5-14.5); White Blood Count 8.5 K/mm3 (4.5-10.0)
[2022-09-03 05:30] LABS: INR 1.1; Prothrombin Time 13.8 Seconds (11.1-14.7)
[2022-09-03 05:45] LABS: Alanine Aminotransferase 26 U/L (6-35); Albumin Level 2.9 g/dL (3.5-5.1); Alkaline Phosphatase 110 U/L (38-126); Anion Gap 3 mmol/L (8-16); Aspartate Amino Transferase 17 U/L (14-36); Bilirubin,Total 0.2 mg/dL (0.2-1.3); Blood Urea Nitrogen 15 mg/dL (7-17); Calcium 8.1 mg/dL (8.4-10.2); Carbon Dioxide 29 mmol/L (22-30); Chloride 98 mmol/L (98-107); Estimated CRCL calculation 97 ml/min; Estimated Glomerular Filt Rate > 60; Glucose 347 mg/dL (65-110); Magnesium 1.9 mg/dL (1.6-2.3); Sodium 130 mmol/L (137-145)
[2022-09-03] MEDS: oxyCODONE HCL (*CRX) 5 MG TAB IR 10 MG PO ×4 (06:12→23:01)
[2022-09-03] MEDS: LEVOTHYROXINE SODIUM 112 MCG TABLET PO (06:13)
[2022-09-03] MEDS: HEPARIN SODIUM 5,000 UNITS/ML VIAL 5000 UNITS SUB-Q ×3 (06:13→22:35)
[2022-09-03] MEDS: LEVOTHYROXINE SODIUM 25 MCG TABLET PO (06:13)
[2022-09-03] MEDS: SODIUM CHLORIDE 0.9% IV 1,000 ML 100 ML IV CONT (06:14)
[2022-09-03 09:00] LABS: Glucose Point of Care 361 mg/dl (65-105)
[2022-09-03] MEDS: INSULIN GLARGINE (*BKC) 100 UNITS/ML 30 UNITS SUB-Q (09:05)
[2022-09-03] MEDS: INSULIN ASPART (*BKC) 100 UNITS/ML SUB-Q ×3 (09:06→17:34)
[2022-09-03] MEDS: ASPIRIN 81 MG ENTERIC TABLET PO (09:13)
[2022-09-03] MEDS: ATORVASTATIN 20 MG TABLET PO (09:13)
[2022-09-03] MEDS: DOCUSATE SODIUM 100 MG CAPSULE PO ×2 (09:14→17:33)
[2022-09-03] MEDS: DULoxetine HCL 30 MG CAPSULE.DR 60 MG PO (09:14)
[2022-09-03] MEDS: FAMOTIDINE 20 MG TABLET PO (09:15)
[2022-09-03] MEDS: PANTOPRAZOLE 40 MG TABLET PO ×2 (09:15→17:34)
[2022-09-03] MEDS: PREGABALIN (*CRX) 75 MG CAPSULE PO ×2 (09:15→20:17)
[2022-09-03] MEDS: SENNOSIDES 8.6 MG TABLET PO ×2 (09:16→17:33)
[2022-09-03] MEDS: TERBINAFINE HCL 250 MG TABLET PO (09:16)
[2022-09-03] MEDS: rOPINIRole HCL 0.25 MG TABLET PO (09:16)
[2022-09-03] MEDS: MICONAZOLE NITRATE 2% CREAM 30 GM TUBE 1 APPLIC TOPICAL (09:18)
[2022-09-03 09:22] LABS: Iron 12 ug/dL (37-170)
[2022-09-03 09:29] LABS: Transferrin 187 mg/dL (206-381)
--- NOTE | 2022-09-03 09:30 | PM.IMPN ---
Progress Note: A&P Assessment and Plan (1) Sepsis: Code(s): A41.9 - Sepsis, unspecified organism Status: Acute Assessment and Plan: patient meets SIRS criteria with leukocytosis, tachycardia, tachypnea, source of infection source of infection appears to be pneumonia patient also is hypotensive the blood pressure in the 70s and 80s systolic IV fluids Stopped LR bolus x2 given 09/03/2022 IV antibiotics on board blood cultures no growth to date sputum culture ordered chest x-ray shows pneumonia versus pulmonary edema (2) Pneumonia due to COVID-19 virus: Code(s): U07.1 - COVID-19; J12.82 - Pneumonia due to coronavirus disease 2019 Status: Acute Assessment and Plan: chest x-ray shows elevation the right hemidiaphragm upon admission chest x-ray from 09/03/2022 showed diffuse lung disease consistent with pneumonia and/or pulmonary edema CTA shows no PE however does show lower lung and dependent prominent atelectasis and hepatic lobe mass supplemental oxygen currently 2 L, currently weaned to room air start patient on remdesivir and dexamethasone day 2 endorse a cough sputum culture ordered awaiting collection blood cultures no growth to date continue IV vancomycin, cefepime and azithromycin white blood cell count trending down at 8.5 today trend labs positive for COVID on 09/01/2022 [facility] (3) Acute respiratory distress syndrome (ARDS) due to 2019 novel coronavirus: Code(s): U07.1 - COVID-19; J80 - Acute respiratory distress syndrome Status: Acute Assessment and Plan: 2 L nasal cannula, weaned to room air unable to wean is the patient's saturations dropped into the high 80s patient gets accessory muscle breathing and panting and tripod positioning on 09/03/2022 currently patient does appear to be short of breath when she talks for a while but recovers quickly related to COVID-19 continue Trend respiratory status COVID-19 medications on board (4) Congestive heart failure: Code(s): I50.9 - Heart failure, unspecified Status: Acute Assessment and Plan: unknown particular type however appears to be chronic Entresto, carvedilol currently on hold due to hypotension chest x-ray does show possible pulmonary edema continue aspirin Echo ordered and pending trend urine output daily weights BNP ordered could be in acute exacerbation at this time (5) Hypotension: Code(s): I95.9 - Hypotension, unspecified Status: Acute Assessment and Plan: blood pressure is noted 70-80s systolic IV fluids given trend blood pressure seems to be stabilizing with fluid adjust therapy as indicated (6) Benign essential HTN: Code(s): I10 - Essential (primary) hypertension Status: Acute Assessment and Plan: Current BP 110/80 hold home Entresto, spironolactone, furosemide, carvedilol due to hypotension restart antihypertensives when appropriate Trend Blood pressure Adjust therapy as indicated (7) Type 2 diabetes mellitus without complications: Code(s): E11.9 - Type 2 diabetes mellitus without complications Status: Acute Assessment and Plan: current glucose 347 Insulin Lispro sliding scale increased to high dose sliding scale glucose probably elevated due to steroids Accu-checks qAc and HS Hold oral hypoglycemics metformin and Farxiga HgbA1c 7.9 (8) Fibromyalgia: Code(s): M79.7 - Fibromyalgia Status: Acute Assessment and Plan: continue home meds (9) Hyperlipidemia: Code(s): E78.5 - Hyperlipidemia, unspecified Status: Acute Assessment and Plan: continue atorvastatin lipid panel not obtained will obtain in the morning Time Spen
--- NOTE | 2022-09-03 09:30 | P.PNIM_ITS ---
Progress Note: A&P Assessment and Plan (1) Sepsis: Code(s): A41.9 - Sepsis, unspecified organism Status: Acute Assessment and Plan: * patient meets SIRS criteria with leukocytosis, tachycardia, tachypnea, source of infection * source of infection appears to be pneumonia * patient also is hypotensive the blood pressure in the 70s and 80s systolic * IV fluids Stopped * LR bolus x2 given 09/03/2022 * IV antibiotics on board * blood cultures no growth to date * sputum culture ordered * chest x-ray shows pneumonia versus pulmonary edema (2) Pneumonia due to COVID-19 virus: Code(s): U07.1 - COVID-19; J12.82 - Pneumonia due to coronavirus disease 2019 Status: Acute Assessment and Plan: * chest x-ray shows elevation the right hemidiaphragm upon admission * chest x-ray from 09/03/2022 showed diffuse lung disease consistent with pneumonia and/or pulmonary edema * CTA shows no PE however does show lower lung and dependent prominent atelectasis and hepatic lobe mass * supplemental oxygen currently 2 L, currently weaned to room air * start patient on remdesivir and dexamethasone day 2/ * endorse a cough sputum culture ordered awaiting collection * blood cultures no growth to date * continue IV vancomycin, cefepime and azithromycin * white blood cell count trending down at 8.5 today * trend labs * positive for COVID on 09/01/2022 * [facility] (3) Acute respiratory distress syndrome (ARDS) due to 2019 novel coronavirus: Code(s): U07.1 - COVID-19; J80 - Acute respiratory distress syndrome Status: Acute Assessment and Plan: * 2 L nasal cannula, weaned to room air * unable to wean is the patient's saturations dropped into the high 80s patient gets accessory muscle breathing and panting and tripod positioning on 09/03/2022 * currently patient does appear to be short of breath when she talks for a while but recovers quickly * related to COVID-19 * continue Trend respiratory status * COVID-19 medications on board (4) Congestive heart failure: Code(s): I50.9 - Heart failure, unspecified Status: Acute Assessment and Plan: * unknown particular type however appears to be chronic * Entresto, carvedilol currently on hold due to hypotension * chest x-ray does show possible pulmonary edema * continue aspirin * Echo ordered and pending * trend urine output * daily weights * BNP ordered * could be in acute exacerbation at this time (5) Hypotension: Code(s): I95.9 - Hypotension, unspecified Status: Acute Assessment and Plan: * blood pressure is noted 70-80s systolic * IV fluids given * trend blood pressure * seems to be stabilizing with fluid * adjust therapy as indicated (6) Benign essential HTN: Code(s): I10 - Essential (primary) hypertension Status: Acute Assessment and Plan: * Current BP 110/80 * hold home Entresto, spironolactone, furosemide, carvedilol due to hypotension * restart antihypertensives when appropriate * Trend Blood pressure * Adjust therapy as indicated (7) Type 2 diabetes mellitus without complications: Code(s): E11.9 - Type 2 diabetes mellitus without complications Status: Acute Assessment
[2022-09-03 09:34] LABS: Percent Iron Saturation 5 % (20-50)
[2022-09-03 09:53] LABS: Thyroid Stimulating Hormone Reflex 0.045 uIU/mL (0.465-4.68)
[2022-09-03 11:06] LABS: Hemoglobin A1C 7.9 % (<5.7)
[2022-09-03 11:36] LABS: Free T4 Free Thyroxine Reflex 1.23 ng/dL (0.78-2.19)
[2022-09-03 12:01] LABS: NT Pro B Type Natriuretic Pept 780 pg/mL (5-100)
[2022-09-03 12:21] LABS: Glucose Point of Care 305 mg/dl (65-105)
[2022-09-03 13:01] LABS: Total Triiodothyronine (T3) 0.54 NG/ML (0.97-1.69)
[2022-09-03] MEDS: FUROSEMIDE INJ 40 MG/4 ML VIAL IV PUSH (14:22)
[2022-09-03] MEDS: CYCLOBENZAPRINE HCL 5 MG TABLET PO (14:28)
[2022-09-03 16:39] LABS: Folic Acid 12.6 ng/mL (2.76->20)
[2022-09-03 16:53] LABS: Glucose Point of Care 406 mg/dl (65-105)
[2022-09-03] MEDS: INSULIN ASPART (*BKC) 100 UNITS/ML 10 UNITS SUB-Q (17:34)
[2022-09-03 18:33] LABS: Glucose Point of Care 358 mg/dl (65-105)
[2022-09-03] MEDS: SODIUM CHLORIDE 0.9% IV 250 ML 999 ML IV CONT (20:18)
[2022-09-03 21:45] LABS: Glucose Point of Care 248 mg/dl (65-105)
[2022-09-03] MEDS: REMDESIVIR 100 MG/NS 250 ML 100 MG/250 ML BAG 250 MG IVPB (23:00)
[2022-09-04] VITALS (9 sets, daily range): BP systolic 100–130; BP diastolic 56–87; PULSE 73–112; RESP 16–18; TEMP 35.8–36.8; O2SAT 92–94
[2022-09-04] MEDS: oxyCODONE HCL (*CRX) 5 MG TAB IR 10 MG PO ×4 (05:34→23:01)
[2022-09-04] MEDS: LEVOTHYROXINE SODIUM 25 MCG TABLET PO (05:34)
[2022-09-04] MEDS: HEPARIN SODIUM 5,000 UNITS/ML VIAL 5000 UNITS SUB-Q ×3 (05:34→22:12)
[2022-09-04] MEDS: LEVOTHYROXINE SODIUM 112 MCG TABLET PO (05:34)
[2022-09-04 06:19] LABS: Basophils Percent Auto 0.1 % (0.2-1.2); Hematocrit 29.1 % (37.0-47.0); Hemoglobin 8.8 g/dL (12.0-15.0); Immature Granulocyte Absolute 0.14 K/mm3 (0.00-0.031); Immature Granulocyte Percent A 1.9 % (0-0.5); Lymphocytes Absolute Auto 1.23 K/mm3 (0.9-3.2); Lymphocytes Percent Auto 16.5 % (18.3-44.2); Mean Corpuscular HGB Conc 30.2 g/dl (32-36); Mean Corpuscular Hemoglobin 27.5 pg (26-34); Mean Corpuscular Volume 90.9 fl (80-100); Mean Platelet Volume 10.7 fl (7.4-10.4); Monocytes Absolute Auto 0.3 K/mm3 (0.1-0.6); Monocytes Percent Auto 4.1 % (2.6-8.5); Neutrophils Absolute Auto 5.8 K/mm3 (1.3-6.7); Neutrophils Percent Auto 77.4 % (45.5-73.1); Nucleated Red Blood Cells Perc 0.4 % (0.0-0.2); Platelet Count Result 228 k/mm3 (150-375); Red Cell Distribution Width 15.6 % (11.5-14.5); White Blood Count 7.5 K/mm3 (4.5-10.0)
[2022-09-04 06:29] LABS: Alanine Aminotransferase 27 U/L (6-35); Albumin Level 3.1 g/dL (3.5-5.1); Alkaline Phosphatase 109 U/L (38-126); Anion Gap 3 mmol/L (8-16); Aspartate Amino Transferase 17 U/L (14-36); Bilirubin,Total 0.1 mg/dL (0.2-1.3); Blood Urea Nitrogen 15 mg/dL (7-17); Calcium 8.5 mg/dL (8.4-10.2); Carbon Dioxide 31 mmol/L (22-30); Chloride 102 mmol/L (98-107); Cholesterol 123 mg/dL (0-200); Estimated CRCL calculation 97 ml/min; Estimated Glomerular Filt Rate > 60; Glucose 186 mg/dL (65-110); HDL Direct 29 mg/dL; Potassium 3.2 mmol/L (3.4-5.0); Sodium 136 mmol/L (137-145); Triglycerides 97 mg/dL (<150)
[2022-09-04 06:31] LABS: INR 1.1; Prothrombin Time 13.2 Seconds (11.1-14.7)
[2022-09-04 06:40] LABS: LDL Cholesterol Direct 67 mg/dL
[2022-09-04 08:56] LABS: Glucose Point of Care 223 mg/dl (65-105)
[2022-09-04] MEDS: ASPIRIN 81 MG ENTERIC TABLET PO (09:05)
[2022-09-04] MEDS: ATORVASTATIN 20 MG TABLET PO (09:06)
[2022-09-04] MEDS: AZITHROMYCIN 250 MG TABLET 500 MG PO (09:06)
[2022-09-04] MEDS: CEFDINIR 300 MG CAPSULE PO ×2 (09:07→20:25)
[2022-09-04] MEDS: DULoxetine HCL 30 MG CAPSULE.DR 60 MG PO (09:07)
[2022-09-04] MEDS: DOCUSATE SODIUM 100 MG CAPSULE PO ×2 (09:07→17:54)
[2022-09-04] MEDS: PANTOPRAZOLE 40 MG TABLET PO ×2 (09:08→17:53)
[2022-09-04] MEDS: polyethylene glycoL 3350 17 GM POWD.PACK PO (09:08)
[2022-09-04] MEDS: FAMOTIDINE 20 MG TABLET PO (09:08)
[2022-09-04] MEDS: PREGABALIN (*CRX) 75 MG CAPSULE PO ×2 (09:08→20:24)
[2022-09-04] MEDS: rOPINIRole HCL 0.25 MG TABLET PO (09:09)
[2022-09-04] MEDS: SENNOSIDES 8.6 MG TABLET PO ×2 (09:09→17:53)
[2022-09-04] MEDS: TERBINAFINE HCL 250 MG TABLET PO (09:09)
[2022-09-04] MEDS: INSULIN ASPART (*BKC) 100 UNITS/ML SUB-Q ×2 (09:10→12:42)
[2022-09-04] MEDS: INSULIN ASPART (*BKC) 100 UNITS/ML 7 UNITS SUB-Q ×3 (09:10→17:54)
[2022-09-04] MEDS: INSULIN GLARGINE (*BKC) 100 UNITS/ML 30 UNITS SUB-Q (09:11)
[2022-09-04] MEDS: FERROUS SULFATE 324 MG TABLET PO ×2 (10:36→17:52)
[2022-09-04] MEDS: HYDROcodone/acetaminophen (*CRX) 7.5-325 MG TABLET 1 TAB PO ×2 (10:37→20:24)
[2022-09-04] MEDS: CYCLOBENZAPRINE HCL 5 MG TABLET PO (10:38)
[2022-09-04 12:36] LABS: Glucose Point of Care 168 mg/dl (65-105)
--- NOTE | 2022-09-04 12:45 | P.PNIM_ITS ---
Progress Note: A&P Assessment and Plan (1) Sepsis: Code(s): A41.9 - Sepsis, unspecified organism Status: Acute Assessment and Plan: * patient meets SIRS criteria with leukocytosis, tachycardia, tachypnea, source of infection * source of infection appears to be pneumonia * patient also is hypotensive the blood pressure in the 70s and 80s systolic * IV fluids Stopped * LR bolus x2 given 09/03/2022 * IV antibiotics on board * blood cultures no growth to date * sputum culture ordered * chest x-ray shows pneumonia versus pulmonary edema * resolved at this time (2) Pneumonia due to COVID-19 virus: Code(s): U07.1 - COVID-19; J12.82 - Pneumonia due to coronavirus disease 2019 Status: Acute Assessment and Plan: * chest x-ray shows elevation the right hemidiaphragm upon admission * chest x-ray from 09/03/2022 showed diffuse lung disease consistent with pneumonia and/or pulmonary edema * CTA shows no PE however does show lower lung and dependent prominent atelectasis and hepatic lobe mass * supplemental oxygen currently 2 L, wean as tolerated * start patient on remdesivir and dexamethasone day 2/ * endorse a cough sputum culture ordered awaiting collection * blood cultures no growth to date * Deescalate antibiotics, stop IV vancomycin, cefepime, azithromycin convert to p.o. azithromycin and cefdinir * white blood cell count trending down at 7.5 today * trend labs * positive for COVID on 09/01/2022 * [facility] Therapy (3) Acute respiratory distress syndrome (ARDS) due to 2019 novel coronavirus: Code(s): U07.1 - COVID-19; J80 - Acute respiratory distress syndrome Status: Acute Assessment and Plan: * 2 L nasal cannula, weaned to room air, however was found to be satting in the 80s and oxygen was reapplied * IV Lasix 40 mg once * unable to wean is the patient's saturations dropped into the high 80s patient gets accessory muscle breathing and panting and tripod positioning on 09/03/2022 * currently patient does appear to be short of breath when she talks for a while but recovers quickly * related to COVID-19 * continue Trend respiratory status * COVID-19 medications on board (4) Congestive heart failure: Code(s): I50.9 - Heart failure, unspecified Status: Acute Assessment and Plan: * appears to be a 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 with exacerbation * exacerbation noted by findings on chest x-ray, supplemental oxygen need, shortness of breath * Entresto, carvedilol currently on hold due to hypotension * chest x-ray does show possible pulmonary edema * continue aspirin * Echo severe hypokinesis to akinesis of the proximal and mid inferior septal and inferior lateral segments, EF 35% with diastolic dysfunction * trend urine output * daily weights * BNP 780 (5) Benign essential HTN: Code(s): I10 - Essential (primary) hypertension Status: Acute Assessment and Plan: * Current BP 103/68 * hold home Entresto, spironolactone, furosemide, carvedilol due to hypotension * restart antihypertensives when appropriate * Trend Blood pressure * Adjust therapy as indicated (6) Iron deficiency anemia: Code(s): D50.9 - Iron deficiency anemia, unspecified Status: Acute
--- NOTE | 2022-09-04 12:45 | PM.IMPN ---
Progress Note: A&P Assessment and Plan (1) Sepsis: Code(s): A41.9 - Sepsis, unspecified organism Status: Acute Assessment and Plan: patient meets SIRS criteria with leukocytosis, tachycardia, tachypnea, source of infection source of infection appears to be pneumonia patient also is hypotensive the blood pressure in the 70s and 80s systolic IV fluids Stopped LR bolus x2 given 09/03/2022 IV antibiotics on board blood cultures no growth to date sputum culture ordered chest x-ray shows pneumonia versus pulmonary edema resolved at this time (2) Pneumonia due to COVID-19 virus: Code(s): U07.1 - COVID-19; J12.82 - Pneumonia due to coronavirus disease 2019 Status: Acute Assessment and Plan: chest x-ray shows elevation the right hemidiaphragm upon admission chest x-ray from 09/03/2022 showed diffuse lung disease consistent with pneumonia and/or pulmonary edema CTA shows no PE however does show lower lung and dependent prominent atelectasis and hepatic lobe mass supplemental oxygen currently 2 L, wean as tolerated start patient on remdesivir and dexamethasone day 2 endorse a cough sputum culture ordered awaiting collection blood cultures no growth to date Deescalate antibiotics, stop IV vancomycin, cefepime, azithromycin convert to p.o. azithromycin and cefdinir white blood cell count trending down at 7.5 today trend labs positive for COVID on 09/01/2022 [facility] (3) Acute respiratory distress syndrome (ARDS) due to 2019 novel coronavirus: Code(s): U07.1 - COVID-19; J80 - Acute respiratory distress syndrome Status: Acute Assessment and Plan: 2 L nasal cannula, weaned to room air, however was found to be satting in the 80s and oxygen was reapplied IV Lasix 40 mg once unable to wean is the patient's saturations dropped into the high 80s patient gets accessory muscle breathing and panting and tripod positioning on 09/03/2022 currently patient does appear to be short of breath when she talks for a while but recovers quickly related to COVID-19 continue Trend respiratory status COVID-19 medications on board (4) Congestive heart failure: Code(s): I50.9 - Heart failure, unspecified Status: Acute Assessment and Plan: appears to be a 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 with exacerbation exacerbation noted by findings on chest x-ray, supplemental oxygen need, shortness of breath Entresto, carvedilol currently on hold due to hypotension chest x-ray does show possible pulmonary edema continue aspirin Echo severe hypokinesis to akinesis of the proximal and mid inferior septal and inferior lateral segments, EF 35% with diastolic dysfunction trend urine output daily weights BNP 780 (5) Benign essential HTN: Code(s): I10 - Essential (primary) hypertension Status: Acute Assessment and Plan: Current BP 103/68 hold home Entresto, spironolactone, furosemide, carvedilol due to hypotension restart antihypertensives when appropriate Trend Blood pressure Adjust therapy as indicated (6) Iron deficiency anemia: Code(s): D50.9 - Iron deficiency anemia, unspecified Status: Acute Assessment and Plan: H&H continues to trend down currently 8.8/29.1 anemia labs indicate iron deficiency with iron 12, TIBC 265, % saturation 5, ferritin 102, B12 771, folate 12.6, transferrin 187 supplement with iron sulfate 325 b.i.d. trend H&H transfuse if less than 7 (7) Type 2 diabetes mellitus without complications: Code(s): E11.9 - Type 2 diabetes mellitus without complications Status: Acute Assessment and Plan: current glucose 186 Insulin Lispro sliding scale increased to high dose sliding scale add 7 units with m
[2022-09-04] MEDS: ACETAMINOPHEN 325 MG TABLET 650 MG PO (15:51)
[2022-09-04 17:37] LABS: Glucose Point of Care 130 mg/dl (65-105)
[2022-09-04] MEDS: MAGNESIUM SULF 2 GM/WATER 50ML 2 GM/50 ML BAG IVPB (20:25)
[2022-09-04] MEDS: REMDESIVIR 100 MG/NS 250 ML 100 MG/250 ML BAG 250 MG IVPB (22:12)
[2022-09-04 22:28] LABS: Glucose Point of Care 202 mg/dl (65-105)
[2022-09-05] VITALS (12 sets, daily range): BP systolic 97–135; BP diastolic 55–82; PULSE 71–89; RESP 16–18; TEMP 35.8–36.2; O2SAT 85–97
[2022-09-05] MEDS: CYCLOBENZAPRINE HCL 5 MG TABLET PO ×3 (00:54→21:24)
[2022-09-05] MEDS: ACETAMINOPHEN 325 MG TABLET 650 MG PO (00:54)
[2022-09-05] MEDS: LEVOTHYROXINE SODIUM 112 MCG TABLET PO (05:27)
[2022-09-05] MEDS: oxyCODONE HCL (*CRX) 5 MG TAB IR 10 MG PO ×4 (05:27→23:10)
[2022-09-05] MEDS: HEPARIN SODIUM 5,000 UNITS/ML VIAL 5000 UNITS SUB-Q ×3 (05:27→21:24)
[2022-09-05] MEDS: LEVOTHYROXINE SODIUM 25 MCG TABLET PO (05:27)
[2022-09-05 05:28] LABS: Basophils Percent Auto 0.2 % (0.2-1.2); Eosinophils Percent Auto 0.2 % (0-4.4); Hematocrit 32.3 % (37.0-47.0); Hemoglobin 9.5 g/dL (12.0-15.0); Immature Granulocyte Absolute 0.13 K/mm3 (0.00-0.031); Immature Granulocyte Percent A 2.3 % (0-0.5); Lymphocytes Absolute Auto 1.42 K/mm3 (0.9-3.2); Lymphocytes Percent Auto 25.4 % (18.3-44.2); Mean Corpuscular HGB Conc 29.4 g/dl (32-36); Mean Corpuscular Hemoglobin 28.1 pg (26-34); Mean Corpuscular Volume 95.6 fl (80-100); Mean Platelet Volume 10.6 fl (7.4-10.4); Monocytes Absolute Auto 0.3 K/mm3 (0.1-0.6); Monocytes Percent Auto 5.6 % (2.6-8.5); Neutrophils Absolute Auto 3.7 K/mm3 (1.3-6.7); Neutrophils Percent Auto 66.3 % (45.5-73.1); Nucleated Red Blood Cells Perc 0.4 % (0.0-0.2); Platelet Count Result 220 k/mm3 (150-375); Red Blood Count 3.38 M/mm3 (4.2-5.4); Red Cell Distribution Width 15.6 % (11.5-14.5); White Blood Count 5.6 K/mm3 (4.5-10.0)
[2022-09-05 05:38] LABS: Prothrombin Time 12.9 Seconds (11.1-14.7)
[2022-09-05 05:41] LABS: Alanine Aminotransferase 27 U/L (6-35); Alkaline Phosphatase 104 U/L (38-126); Anion Gap 3 mmol/L (8-16); Aspartate Amino Transferase 18 U/L (14-36); Bilirubin,Total 0.1 mg/dL (0.2-1.3); Blood Urea Nitrogen 15 mg/dL (7-17); Calcium 7.8 mg/dL (8.4-10.2); Carbon Dioxide 31 mmol/L (22-30); Chloride 101 mmol/L (98-107); Estimated CRCL calculation 117 ml/min; Estimated Glomerular Filt Rate > 60; Glucose 121 mg/dL (65-110); Magnesium 2.6 mg/dL (1.6-2.3); Potassium 2.8 mmol/L (3.4-5.0); Sodium 135 mmol/L (137-145)
[2022-09-05 06:05] LABS: Crenated RBC 1+ (NORMAL); Hypochromasia 2+ (NORMAL); Ovalocytes 1+ (NORMAL)
[2022-09-05] MEDS: POTASSIUM CHLORIDE 20 MEQ TABLET 40 MEQ PO (06:07)
[2022-09-05 06:08] LABS: Platelet Estimate Adequate (Adequate); Schistocytes None Seen (NORMAL)
[2022-09-05] MEDS: POTASSIUM CHLORIDE INJ 40 MEQ in SODIUM CHLORIDE 0.9% IV 500 ML 130 MEQ IVPB (06:45)
[2022-09-05 08:29] LABS: Glucose Point of Care 102 mg/dl (65-105)
[2022-09-05] MEDS: INSULIN GLARGINE (*BKC) 100 UNITS/ML 30 UNITS SUB-Q (09:40)
[2022-09-05] MEDS: PREGABALIN (*CRX) 75 MG CAPSULE PO ×2 (09:43→21:17)
[2022-09-05] MEDS: polyethylene glycoL 3350 17 GM POWD.PACK PO (09:44)
[2022-09-05] MEDS: metFORMIN HCL XR 500 MG TAB.SR.24H 1000 MG PO ×2 (09:44→18:45)
[2022-09-05] MEDS: ASPIRIN 81 MG ENTERIC TABLET PO (09:45)
[2022-09-05] MEDS: SPIRONOLACTONE 25 MG TABLET PO ×2 (09:45→17:39)
[2022-09-05] MEDS: SACUBITRIL/VALSARTAN 49-51 MG TABLET 1 TABLET PO ×2 (09:45→22:08)
[2022-09-05] MEDS: ATORVASTATIN 20 MG TABLET PO (09:46)
[2022-09-05] MEDS: DOCUSATE SODIUM 100 MG CAPSULE PO ×2 (09:46→17:38)
[2022-09-05] MEDS: CEFDINIR 300 MG CAPSULE PO ×2 (09:47→21:17)
[2022-09-05] MEDS: rOPINIRole HCL 0.25 MG TABLET PO (09:47)
[2022-09-05] MEDS: SENNOSIDES 8.6 MG TABLET PO ×2 (09:47→17:38)
[2022-09-05] MEDS: FERROUS SULFATE 324 MG TABLET PO ×2 (09:47→17:38)
[2022-09-05] MEDS: AZITHROMYCIN 250 MG TABLET 500 MG PO (09:47)
[2022-09-05] MEDS: PANTOPRAZOLE 40 MG TABLET PO ×2 (09:47→17:39)
[2022-09-05] MEDS: TERBINAFINE HCL 250 MG TABLET PO (09:49)
[2022-09-05] MEDS: EMPAGLIFLOZIN 25 MG TABLET BY MOUTH (09:49)
[2022-09-05] MEDS: FAMOTIDINE 20 MG TABLET PO (09:49)
[2022-09-05] MEDS: DULoxetine HCL 30 MG CAPSULE.DR 60 MG PO (09:49)
[2022-09-05] MEDS: FUROSEMIDE 20 MG TABLET PO (09:49)
[2022-09-05] MEDS: MICONAZOLE NITRATE 2% CREAM 30 GM TUBE 1 APPLIC TOPICAL ×2 (09:51→17:39)
--- NOTE | 2022-09-05 09:51 | PCOTNOTE ---
Attempted to see pt. for occupational therapy evaluation. Nursing requested waiting on evaluation, as pt. medications have not all been delivered and nursing is attempting to complete medication delivery. Following
[2022-09-05] MEDS: HYDROcodone/acetaminophen (*CRX) 7.5-325 MG TABLET 1 TAB PO ×2 (09:52→21:17)
--- NOTE | 2022-09-05 10:55 | PCOTNOTE ---
Attempted to see. pt. for occupational therapy evaluation. Pt. receiving in room x-ray. Following.
[2022-09-05 12:08] LABS: Glucose Point of Care 209 mg/dl (65-105)
--- NOTE | 2022-09-05 12:15 | PM.IMPN ---
Progress Note: A&P Assessment and Plan (1) Sepsis: Code(s): A41.9 - Sepsis, unspecified organism Status: Acute Assessment and Plan: patient meets SIRS criteria with leukocytosis, tachycardia, tachypnea, source of infection source of infection appears to be pneumonia patient also is hypotensive the blood pressure in the 70s and 80s systolic IV fluids Stopped LR bolus x2 given 09/03/2022 IV antibiotics on board blood cultures no growth to date sputum culture ordered, not collected chest x-ray shows pneumonia versus pulmonary edema repeat chest xray 09/05/22 resolved at this time (2) Pneumonia due to COVID-19 virus: Code(s): U07.1 - COVID-19; J12.82 - Pneumonia due to coronavirus disease 2019 Status: Acute Assessment and Plan: chest x-ray (09/01/22) shows elevation the right hemidiaphragm upon admission chest x-ray from 09/05/2022 showed CTA shows no PE however does show lower lung and dependent prominent atelectasis and hepatic lobe mass supplemental oxygen currently 1 L, wean as tolerated start patient on remdesivir and dexamethasone day 3/5 endorse a cough sputum culture ordered awaiting collection blood cultures no growth to date Deescalate antibiotics, stop IV vancomycin, cefepime, azithromycin convert to p.o. azithromycin and cefdinir white blood cell count trending down at 5.6 today trend labs positive for COVID on 09/01/2022 [facility] Obtain CRP, ESR, and procal (3) Acute respiratory distress syndrome (ARDS) due to 2019 novel coronavirus: Code(s): U07.1 - COVID-19; J80 - Acute respiratory distress syndrome Status: Acute Assessment and Plan: 2 L nasal cannula, weaned to room air, however was found to be satting in the 80s and oxygen was reapplied IV Lasix 40 mg once Continue to wean oxygen currently on 1L, is having some noted shortness of breath with accessory muscle use, unable to complete sentences currently patient does appear to be short of breath when she talks for a while but recovers quickly related to COVID-19 continue Trend respiratory status COVID-19 medications on board (4) Congestive heart failure: Code(s): I50.9 - Heart failure, unspecified Status: Acute Assessment and Plan: appears to be a 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 with exacerbation exacerbation noted by findings on chest x-ray, supplemental oxygen need, shortness of breath Entresto, carvedilol can be restarted as hypotension seems to be resolved chest x-ray does show possible pulmonary edema 09/03/22 Repeat chest xray extensive airspace consolidation Put PO Furosemide on hold and start on IV BID Lasix continue aspirin Echo severe hypokinesis to akinesis of the proximal and mid inferior septal and inferior lateral segments, EF 35% with diastolic dysfunction trend urine output daily weights BNP 780 (5) Benign essential HTN: Code(s): I10 - Essential (primary) hypertension Status: Acute Assessment and Plan: Current BP 135/82 Restart home Entresto, spironolactone, furosemide, carvedilol as hypotension appears to be resolved Trend Blood pressure Adjust therapy as indicated (6) Iron deficiency anemia: Code(s): D50.9 - Iron deficiency anemia, unspecified Status: Acute Assessment and Plan: H&H continues to trend down currently 9.5/32.3 anemia labs indicate iron deficiency with iron 12, TIBC 265, % saturation 5, ferritin 102, B12 771, folate 12.6, transferrin 187 supplement with iron sulfate 325 b.i.d. trend H&H transfuse if less than 7 (7) Type 2 diabetes mellitus without complications: Code(s): E11.9 - Type 2 diabetes mellitus without complications Status: Acute Assessment and Plan:
--- NOTE | 2022-09-05 12:15 | P.PNIM_ITS ---
Progress Note: A&P Assessment and Plan (1) Sepsis: Code(s): A41.9 - Sepsis, unspecified organism Status: Acute Assessment and Plan: * patient meets SIRS criteria with leukocytosis, tachycardia, tachypnea, source of infection * source of infection appears to be pneumonia * patient also is hypotensive the blood pressure in the 70s and 80s systolic * IV fluids Stopped * LR bolus x2 given 09/03/2022 * IV antibiotics on board * blood cultures no growth to date * sputum culture ordered, not collected * chest x-ray shows pneumonia versus pulmonary edema * repeat chest xray 09/05/22 * resolved at this time (2) Pneumonia due to COVID-19 virus: Code(s): U07.1 - COVID-19; J12.82 - Pneumonia due to coronavirus disease 2019 Status: Acute Assessment and Plan: * chest x-ray (09/01/22) shows elevation the right hemidiaphragm upon admission * chest x-ray from 09/05/2022 showed * CTA shows no PE however does show lower lung and dependent prominent atelectasis and hepatic lobe mass * supplemental oxygen currently 1 L, wean as tolerated * start patient on remdesivir and dexamethasone day 3/5 * endorse a cough sputum culture ordered awaiting collection * blood cultures no growth to date * Deescalate antibiotics, stop IV vancomycin, cefepime, azithromycin convert to p.o. azithromycin and cefdinir * white blood cell count trending down at 5.6 today * trend labs * positive for COVID on 09/01/2022 * [facility] * Obtain CRP, ESR, and procal (3) Acute respiratory distress syndrome (ARDS) due to 2019 novel coronavirus: Code(s): U07.1 - COVID-19; J80 - Acute respiratory distress syndrome Status: Acute Assessment and Plan: * 2 L nasal cannula, weaned to room air, however was found to be satting in the 80s and oxygen was reapplied * IV Lasix 40 mg once * Continue to wean oxygen currently on 1L, is having some noted shortness of breath with accessory muscle use, unable to complete sentences * currently patient does appear to be short of breath when she talks for a while but recovers quickly * related to COVID-19 * continue Trend respiratory status * COVID-19 medications on board (4) Congestive heart failure: Code(s): I50.9 - Heart failure, unspecified Status: Acute Assessment and Plan: * appears to be a 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 with exacerbation * exacerbation noted by findings on chest x-ray, supplemental oxygen need, shortness of breath * Entresto, carvedilol can be restarted as hypotension seems to be resolved * chest x-ray does show possible pulmonary edema 09/03/22 * Repeat chest xray extensive airspace consolidation * Put PO Furosemide on hold and start on IV BID Lasix * continue aspirin * Echo severe hypokinesis to akinesis of the proximal and mid inferior septal and inferior lateral segments, EF 35% with diastolic dysfunction * trend urine output * daily weights * BNP 780 (5) Benign essential HTN: Code(s): I10 - Essential (primary) hypertension Status: Acute Assessment and Plan: * Current BP 135/82 * Restart home Entresto, spironolactone, furosemide, carvedilol as hypotension appears to be resolved * Trend Blood pressure * Adjust therapy as indicated (6) Iron defi
[2022-09-05] MEDS: INSULIN ASPART (*BKC) 100 UNITS/ML SUB-Q ×2 (12:27→17:41)
[2022-09-05] MEDS: carvediloL 25 MG TABLET PO ×2 (13:39→21:18)
[2022-09-05] MEDS: MORPHINE SULFATE (*CRX) 2 MG/ML INJ 1 MG IV PUSH (13:41)
[2022-09-05 14:46] LABS: CRP 6.1 mg/dL (<1.0); Erythrocyte Sedimentation Rate 95 mm/hr (0-20)
[2022-09-05 14:58] LABS: Procalcitonin > 100.0 ng/mL
[2022-09-05 17:28] LABS: Glucose Point of Care 157 mg/dl (65-105)
[2022-09-05] MEDS: FUROSEMIDE INJ 40 MG/4 ML VIAL IV PUSH (17:39)
[2022-09-05] MEDS: REMDESIVIR 100 MG/NS 250 ML 100 MG/250 ML BAG 250 MG IVPB (21:24)
[2022-09-05 21:46] LABS: Glucose Point of Care 130 mg/dl (65-105)
[2022-09-06] VITALS (11 sets, daily range): BP systolic 108–124; BP diastolic 71–78; PULSE 60–102; RESP 16–18; TEMP 36.1–36.9; O2SAT 95–96
[2022-09-06] MEDS: HEPARIN SODIUM 5,000 UNITS/ML VIAL 5000 UNITS SUB-Q ×3 (05:01→21:10)
[2022-09-06] MEDS: oxyCODONE HCL (*CRX) 5 MG TAB IR 10 MG PO ×3 (05:01→18:29)
[2022-09-06] MEDS: LEVOTHYROXINE SODIUM 25 MCG TABLET PO (05:02)
[2022-09-06] MEDS: LEVOTHYROXINE SODIUM 112 MCG TABLET PO (05:02)
[2022-09-06 05:28] LABS: Alanine Aminotransferase 32 U/L (6-35); Albumin Level 3.1 g/dL (3.5-5.1); Alkaline Phosphatase 118 U/L (38-126); Anion Gap 2 mmol/L (8-16); Aspartate Amino Transferase 22 U/L (14-36); Bilirubin,Total 0.2 mg/dL (0.2-1.3); Blood Urea Nitrogen 15 mg/dL (7-17); Calcium 8.1 mg/dL (8.4-10.2); Carbon Dioxide 36 mmol/L (22-30); Chloride 103 mmol/L (98-107); Estimated CRCL calculation 97 ml/min; Estimated Glomerular Filt Rate > 60; Glucose 94 mg/dL (65-110); Magnesium 2.1 mg/dL (1.6-2.3); Potassium 3.3 mmol/L (3.4-5.0); Sodium 141 mmol/L (137-145)
[2022-09-06 05:31] LABS: Basophils Absolute Auto 0.1 K/mm3 (0.0-0.1); Basophils Percent Auto 1.1 % (0.2-1.2); Hematocrit 33.3 % (37.0-47.0); Hemoglobin 10.2 g/dL (12.0-15.0); Immature Granulocyte Absolute 0.35 K/mm3 (0.00-0.031); Immature Granulocyte Percent A 7.4 % (0-0.5); Lymphocytes Absolute Auto 1.65 K/mm3 (0.9-3.2); Lymphocytes Percent Auto 34.7 % (18.3-44.2); Mean Corpuscular HGB Conc 30.6 g/dl (32-36); Mean Corpuscular Hemoglobin 28.2 pg (26-34); Mean Platelet Volume 10.8 fl (7.4-10.4); Monocytes Absolute Auto 0.3 K/mm3 (0.1-0.6); Monocytes Percent Auto 7.1 % (2.6-8.5); Neutrophils Absolute Auto 2.4 K/mm3 (1.3-6.7); Neutrophils Percent Auto 49.7 % (45.5-73.1); Nucleated Red Blood Cells Absolute Auto 0.1 K/mm3 (0.0-0.012); Nucleated Red Blood Cells Perc 2.3 % (0.0-0.2); Platelet Count Result 261 k/mm3 (150-375); Red Blood Count 3.62 M/mm3 (4.2-5.4); Red Cell Distribution Width 15.9 % (11.5-14.5); White Blood Count 4.8 K/mm3 (4.5-10.0)
[2022-09-06 05:32] LABS: Prothrombin Time 12.7 Seconds (11.1-14.7)
[2022-09-06 08:59] LABS: Glucose Point of Care 98 mg/dl (65-105)
[2022-09-06] MEDS: HYDROcodone/acetaminophen (*CRX) 7.5-325 MG TABLET 1 TAB PO ×2 (09:42→17:15)
[2022-09-06] MEDS: PREGABALIN (*CRX) 75 MG CAPSULE PO ×2 (09:42→20:50)
[2022-09-06] MEDS: CYCLOBENZAPRINE HCL 5 MG TABLET PO ×2 (09:42→20:57)
[2022-09-06] MEDS: SACUBITRIL/VALSARTAN 49-51 MG TABLET 1 TABLET PO ×2 (09:43→20:51)
[2022-09-06] MEDS: INSULIN GLARGINE (*BKC) 100 UNITS/ML 30 UNITS SUB-Q (09:43)
[2022-09-06] MEDS: metFORMIN HCL XR 500 MG TAB.SR.24H 1000 MG PO ×2 (09:43→17:29)
[2022-09-06] MEDS: ASPIRIN 81 MG ENTERIC TABLET PO (09:43)
[2022-09-06] MEDS: DULoxetine HCL 30 MG CAPSULE.DR 60 MG PO (09:43)
[2022-09-06] MEDS: FERROUS SULFATE 324 MG TABLET PO ×2 (09:44→17:16)
[2022-09-06] MEDS: SENNOSIDES 8.6 MG TABLET PO (09:44)
[2022-09-06] MEDS: carvediloL 25 MG TABLET PO ×2 (09:44→20:52)
[2022-09-06] MEDS: SPIRONOLACTONE 25 MG TABLET PO ×2 (09:44→17:17)
[2022-09-06] MEDS: DOCUSATE SODIUM 100 MG CAPSULE PO (09:44)
[2022-09-06] MEDS: TERBINAFINE HCL 250 MG TABLET PO (09:44)
[2022-09-06] MEDS: AZITHROMYCIN 250 MG TABLET 500 MG PO (09:44)
[2022-09-06] MEDS: FUROSEMIDE INJ 40 MG/4 ML VIAL IV PUSH ×2 (09:45→17:16)
[2022-09-06] MEDS: ATORVASTATIN 20 MG TABLET PO (09:45)
[2022-09-06] MEDS: polyethylene glycoL 3350 17 GM POWD.PACK PO (09:45)
[2022-09-06] MEDS: rOPINIRole HCL 0.25 MG TABLET PO (09:45)
[2022-09-06] MEDS: FAMOTIDINE 20 MG TABLET PO (09:45)
[2022-09-06] MEDS: PANTOPRAZOLE 40 MG TABLET PO ×2 (09:45→17:17)
[2022-09-06] MEDS: CEFDINIR 300 MG CAPSULE PO ×2 (09:45→20:51)
[2022-09-06] MEDS: MICONAZOLE NITRATE 2% CREAM 30 GM TUBE 1 APPLIC TOPICAL ×2 (09:46→17:16)
[2022-09-06 12:38] LABS: Glucose Point of Care 166 mg/dl (65-105)
[2022-09-06] MEDS: ONDANSETRON INJ 4 MG/2 ML VIAL IV PUSH ×2 (12:48→21:02)
[2022-09-06] MEDS: EMPAGLIFLOZIN 25 MG TABLET BY MOUTH (12:48)
[2022-09-06] MEDS: INSULIN ASPART (*BKC) 100 UNITS/ML SUB-Q ×2 (12:49→17:29)
--- NOTE | 2022-09-06 14:45 | P.PNIM_ITS ---
Progress Note: A&P Assessment and Plan (1) Sepsis: Code(s): A41.9 - Sepsis, unspecified organism Status: Acute Assessment and Plan: * patient meets SIRS criteria with leukocytosis, tachycardia, tachypnea, source of infection * source of infection appears to be pneumonia * patient also is hypotensive the blood pressure in the 70s and 80s systolic * IV fluids Stopped * LR bolus x2 given 09/03/2022 * IV antibiotics on board * blood cultures no growth to date * sputum culture ordered, not collected * chest x-ray shows pneumonia versus pulmonary edema * repeat chest xray 09/05/22 * resolved at this time (2) Pneumonia due to COVID-19 virus: Code(s): U07.1 - COVID-19; J12.82 - Pneumonia due to coronavirus disease 2019 Status: Acute Assessment and Plan: * chest x-ray (09/01/22) shows elevation the right hemidiaphragm upon admission * chest x-ray from 09/05/2022 showed extensive bilateral consolidation * CTA shows no PE however does show lower lung and dependent prominent atelectasis and hepatic lobe mass * supplemental oxygen currently 1 L, wean as tolerated * start patient on remdesivir and dexamethasone day 4/5 * endorse a cough sputum culture ordered awaiting collection * blood cultures no growth to date * Deescalate antibiotics, stop IV vancomycin, cefepime, azithromycin convert to p.o. azithromycin and cefdinir * white blood cell count trending down at 4.8 today * trend labs * positive for COVID on 09/01/2022 * [facility] * Obtain CRP 6.1, ESR 95, and procal >100.0 * Consider escalating antibiotics * MRSA swab ordered (3) Acute respiratory distress syndrome (ARDS) due to 2019 novel coronavirus: Code(s): U07.1 - COVID-19; J80 - Acute respiratory distress syndrome Status: Acute Assessment and Plan: * 2 L nasal cannula, weaned to room air, however was found to be satting in the 80s and oxygen was reapplied * IV Lasix 40 mg BID * Continue to wean oxygen currently on 1L, is having some noted shortness of breath with accessory muscle use, unable to complete sentences * currently patient does appear to be short of breath when she talks for a while but recovers quickly * related to COVID-19 * continue Trend respiratory status * COVID-19 medications on board (4) Congestive heart failure: Code(s): I50.9 - Heart failure, unspecified Status: Acute Assessment and Plan: * appears to be a 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 with exacerbation * exacerbation noted by findings on chest x-ray, supplemental oxygen need, shortness of breath * Entresto, carvedilol can be restarted as hypotension seems to be resolved * chest x-ray does show possible pulmonary edema 09/03/22 * Repeat chest xray extensive airspace consolidation 09/05/22 * Put PO Furosemide on hold and Continue on IV BID Lasix * continue aspirin * Echo severe hypokinesis to akinesis of the proximal and mid inferior septal and inferior lateral segments, EF 35% with diastolic dysfunction * trend urine output * daily weights * BNP 780 (5) Benign essential HTN: Code(s): I10 - Essential (primary) hypertension Status: Acute Assessment and Plan: * Current BP 124/78 * Restart home Entresto, spironolactone, furosemide, carvedilol as hypotension appears to be resolved * Trend Blood pressure
--- NOTE | 2022-09-06 14:45 | PM.IMPN ---
Progress Note: A&P Assessment and Plan (1) Sepsis: Code(s): A41.9 - Sepsis, unspecified organism Status: Acute Assessment and Plan: patient meets SIRS criteria with leukocytosis, tachycardia, tachypnea, source of infection source of infection appears to be pneumonia patient also is hypotensive the blood pressure in the 70s and 80s systolic IV fluids Stopped LR bolus x2 given 09/03/2022 IV antibiotics on board blood cultures no growth to date sputum culture ordered, not collected chest x-ray shows pneumonia versus pulmonary edema repeat chest xray 09/05/22 resolved at this time (2) Pneumonia due to COVID-19 virus: Code(s): U07.1 - COVID-19; J12.82 - Pneumonia due to coronavirus disease 2019 Status: Acute Assessment and Plan: chest x-ray (09/01/22) shows elevation the right hemidiaphragm upon admission chest x-ray from 09/05/2022 showed extensive bilateral consolidation CTA shows no PE however does show lower lung and dependent prominent atelectasis and hepatic lobe mass supplemental oxygen currently 1 L, wean as tolerated start patient on remdesivir and dexamethasone day 4/5 endorse a cough sputum culture ordered awaiting collection blood cultures no growth to date Deescalate antibiotics, stop IV vancomycin, cefepime, azithromycin convert to p.o. azithromycin and cefdinir white blood cell count trending down at 4.8 today trend labs positive for COVID on 09/01/2022 [facility] Obtain CRP 6.1, ESR 95, and procal >100.0 Consider escalating antibiotics MRSA swab ordered (3) Acute respiratory distress syndrome (ARDS) due to 2019 novel coronavirus: Code(s): U07.1 - COVID-19; J80 - Acute respiratory distress syndrome Status: Acute Assessment and Plan: 2 L nasal cannula, weaned to room air, however was found to be satting in the 80s and oxygen was reapplied IV Lasix 40 mg BID Continue to wean oxygen currently on 1L, is having some noted shortness of breath with accessory muscle use, unable to complete sentences currently patient does appear to be short of breath when she talks for a while but recovers quickly related to COVID-19 continue Trend respiratory status COVID-19 medications on board (4) Congestive heart failure: Code(s): I50.9 - Heart failure, unspecified Status: Acute Assessment and Plan: appears to be a 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 with exacerbation exacerbation noted by findings on chest x-ray, supplemental oxygen need, shortness of breath Entresto, carvedilol can be restarted as hypotension seems to be resolved chest x-ray does show possible pulmonary edema 09/03/22 Repeat chest xray extensive airspace consolidation 09/05/22 Put PO Furosemide on hold and Continue on IV BID Lasix continue aspirin Echo severe hypokinesis to akinesis of the proximal and mid inferior septal and inferior lateral segments, EF 35% with diastolic dysfunction trend urine output daily weights BNP 780 (5) Benign essential HTN: Code(s): I10 - Essential (primary) hypertension Status: Acute Assessment and Plan: Current BP 124/78 Restart home Entresto, spironolactone, furosemide, carvedilol as hypotension appears to be resolved Trend Blood pressure Adjust therapy as indicated (6) Iron deficiency anemia: Code(s): D50.9 - Iron deficiency anemia, unspecified Status: Acute Assessment and Plan: H&H continues to trend down currently 10.2/33.3 anemia labs indicate iron deficiency with iron 12, TIBC 265, % saturation 5, ferritin 102, B12 771, folate 12.6, transferrin 187 supplement with iron sulfate 325 b.i.d. trend H&H transfuse if less than 7 (7) Type 2 diabetes mellitus without complications: C
[2022-09-06 17:34] LABS: Glucose Point of Care 165 mg/dl (65-105)
[2022-09-06] MEDS: REMDESIVIR 100 MG/NS 250 ML 100 MG/250 ML BAG 250 MG IVPB (21:10)
[2022-09-07] VITALS (10 sets, daily range): BP systolic 108–114; BP diastolic 69–76; PULSE 53–90; RESP 14–18; TEMP 36.5–37.2; O2SAT 93–94
[2022-09-07] MEDS: oxyCODONE HCL (*CRX) 5 MG TAB IR 10 MG PO ×4 (01:00→18:17)
[2022-09-07] MEDS: HEPARIN SODIUM 5,000 UNITS/ML VIAL 5000 UNITS SUB-Q ×3 (05:51→21:26)
[2022-09-07] MEDS: LEVOTHYROXINE SODIUM 112 MCG TABLET PO (05:52)
[2022-09-07] MEDS: LEVOTHYROXINE SODIUM 25 MCG TABLET PO (05:53)
[2022-09-07 05:54] LABS: Basophils Percent Auto 0.6 % (0.2-1.2); Hematocrit 34.9 % (37.0-47.0); Hemoglobin 10.6 g/dL (12.0-15.0); Immature Granulocyte Percent A 7.8 % (0-0.5); Lymphocytes Absolute Auto 1.64 K/mm3 (0.9-3.2); Lymphocytes Percent Auto 32.1 % (18.3-44.2); Mean Corpuscular HGB Conc 30.4 g/dl (32-36); Mean Corpuscular Hemoglobin 27.9 pg (26-34); Mean Corpuscular Volume 91.8 fl (80-100); Mean Platelet Volume 10.5 fl (7.4-10.4); Monocytes Absolute Auto 0.4 K/mm3 (0.1-0.6); Monocytes Percent Auto 8.6 % (2.6-8.5); Neutrophils Absolute Auto 2.6 K/mm3 (1.3-6.7); Neutrophils Percent Auto 50.9 % (45.5-73.1); Nucleated Red Blood Cells Absolute Auto 0.2 K/mm3 (0.0-0.012); Nucleated Red Blood Cells Perc 3.1 % (0.0-0.2); Platelet Count Result 290 k/mm3 (150-375); Red Cell Distribution Width 15.9 % (11.5-14.5); White Blood Count 5.1 K/mm3 (4.5-10.0)
[2022-09-07 06:29] LABS: Alanine Aminotransferase 29 U/L (6-35); Albumin Level 3.3 g/dL (3.5-5.1); Alkaline Phosphatase 119 U/L (38-126); Anion Gap 6 mmol/L (8-16); Aspartate Amino Transferase 18 U/L (14-36); Bilirubin,Total 0.3 mg/dL (0.2-1.3); Blood Urea Nitrogen 17 mg/dL (7-17); Calcium 8.3 mg/dL (8.4-10.2); Carbon Dioxide 37 mmol/L (22-30); Chloride 98 mmol/L (98-107); Estimated CRCL calculation 100 ml/min; Estimated Glomerular Filt Rate > 60; Glucose 154 mg/dL (65-110); Potassium 2.7 mmol/L (3.4-5.0); Sodium 141 mmol/L (137-145)
[2022-09-07] MEDS: POTASSIUM CHLORIDE 20 MEQ TABLET PO (06:45)
[2022-09-07] MEDS: KCL 20 MEQ/SW 100 ML 100 ML 50 MEQ IVPB (06:45)
--- NOTE | 2022-09-07 07:08 | P.PNIM_ITS ---
Progress Note: A&P Assessment and Plan (1) Sepsis: Code(s): A41.9 - Sepsis, unspecified organism Status: Acute Assessment and Plan: * patient meets SIRS criteria with leukocytosis, tachycardia, tachypnea, source of infection * source of infection appears to be pneumonia * patient also is hypotensive the blood pressure in the 70s and 80s systolic * IV fluids Stopped * LR bolus x2 given 09/03/2022 * IV antibiotics on board * blood cultures no growth to date * sputum culture ordered, not collected * chest x-ray shows pneumonia versus pulmonary edema * repeat chest xray 09/05/22 revealed bilateral pneumonia * Repeat chest x-ray 09/07/2022 reflecting improving pneumonia. * resolved at this time and patient is stable (2) Pneumonia due to COVID-19 virus: Code(s): U07.1 - COVID-19; J12.82 - Pneumonia due to coronavirus disease 2019 Status: Acute Assessment and Plan: * chest x-ray (09/01/22) shows elevation the right hemidiaphragm upon admission * chest x-ray from 09/05/2022 showed extensive bilateral consolidation * chest x-ray 09/07/22 showed improving pneumonia * CTA shows no PE however does show lower lung and dependent prominent atelectasis and hepatic lobe mass * supplemental oxygen currently 1 L, wean as tolerated * Remdesivir and dexamethasone course completed on 09/07/2022 * sputum culture ordered awaiting collection * blood cultures no growth to date * Deescalate antibiotics, stop IV vancomycin, cefepime, azithromycin convert to p.o. azithromycin and cefdinir * white blood cell count trending down at 5.1 today * trend labs * positive for COVID on 09/01/2022 * [facility] * Obtain CRP 6.1, ESR 95, and procal >100.0 * MRSA swab ordered and pending * Try to ween O2 tomorrow, if not possible will order home O2 eval (3) Acute respiratory distress syndrome (ARDS) due to 2019 novel coronavirus: Code(s): U07.1 - COVID-19; J80 - Acute respiratory distress syndrome Status: Acute Assessment and Plan: * Patient on 1 L of oxygen in setting at 94. Patient has not been able to maintain room air without your saturations falling in the 80s. * IV Lasix 40 mg b.i.d. * Shortness of breath improving on oxygen. Patient states that she only gets short of breath when oxygen is removed. * Cough improving * related to COVID-19 * continue Trend respiratory status * COVID-19 medications completed today (4) Congestive heart failure: Code(s): I50.9 - Heart failure, unspecified Status: Acute Assessment and Plan: * appears to be a 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 with exacerbation * exacerbation noted by findings on chest x-ray, supplemental oxygen need, shortness of breath * Entresto, carvedilol can be restarted as hypotension seems to be resolved * chest x-ray does show possible pulmonary edema 09/03/22 * Repeat chest xray extensive airspace consolidation 09/05/22 * Put PO Furosemide on hold and Continue on IV BID Lasix * continue aspirin * Echo severe hypokinesis to akinesis of the proximal and mid inferior septal and inferior lateral segments, EF 35% with diastolic dysfunction * trend urine output * daily weights * BNP 780 (5) Benign essential HTN: Code(s): I10 - Essential (primary) hypertension Status: Acute Assessment and Plan: * Current BP 124/78
--- NOTE | 2022-09-07 07:08 | PM.IMPN ---
Progress Note: A&P Assessment and Plan (1) Sepsis: Code(s): A41.9 - Sepsis, unspecified organism Status: Acute Assessment and Plan: patient meets SIRS criteria with leukocytosis, tachycardia, tachypnea, source of infection source of infection appears to be pneumonia patient also is hypotensive the blood pressure in the 70s and 80s systolic IV fluids Stopped LR bolus x2 given 09/03/2022 IV antibiotics on board blood cultures no growth to date sputum culture ordered, not collected chest x-ray shows pneumonia versus pulmonary edema repeat chest xray 09/05/22 revealed bilateral pneumonia Repeat chest x-ray 09/07/2022 reflecting improving pneumonia. resolved at this time and patient is stable (2) Pneumonia due to COVID-19 virus: Code(s): U07.1 - COVID-19; J12.82 - Pneumonia due to coronavirus disease 2019 Status: Acute Assessment and Plan: chest x-ray (09/01/22) shows elevation the right hemidiaphragm upon admission chest x-ray from 09/05/2022 showed extensive bilateral consolidation chest x-ray 09/07/22 showed improving pneumonia CTA shows no PE however does show lower lung and dependent prominent atelectasis and hepatic lobe mass supplemental oxygen currently 1 L, wean as tolerated Remdesivir and dexamethasone course completed on 09/07/2022 sputum culture ordered awaiting collection blood cultures no growth to date Deescalate antibiotics, stop IV vancomycin, cefepime, azithromycin convert to p.o. azithromycin and cefdinir white blood cell count trending down at 5.1 today trend labs positive for COVID on 09/01/2022 [facility] Obtain CRP 6.1, ESR 95, and procal >100.0 MRSA swab ordered and pending Try to ween O2 tomorrow, if not possible will order home O2 eval (3) Acute respiratory distress syndrome (ARDS) due to 2019 novel coronavirus: Code(s): U07.1 - COVID-19; J80 - Acute respiratory distress syndrome Status: Acute Assessment and Plan: Patient on 1 L of oxygen in setting at 94. Patient has not been able to maintain room air without your saturations falling in the 80s. IV Lasix 40 mg b.i.d. Shortness of breath improving on oxygen. Patient states that she only gets short of breath when oxygen is removed. 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 with exacerbation exacerbation noted by findings on chest x-ray, supplemental oxygen need, shortness of breath Entresto, carvedilol can be restarted as hypotension seems to be resolved chest x-ray does show possible pulmonary edema 09/03/22 Repeat chest xray extensive airspace consolidation 09/05/22 Put PO Furosemide on hold and Continue on IV BID Lasix continue aspirin Echo severe hypokinesis to akinesis of the proximal and mid inferior septal and inferior lateral segments, EF 35% with diastolic dysfunction trend urine output daily weights BNP 780 (5) Benign essential HTN: Code(s): I10 - Essential (primary) hypertension Status: Acute Assessment and Plan: Current BP 124/78 Restart home Entresto, spironolactone, furosemide, carvedilol as hypotension appears to be resolved Trend Blood pressure Adjust therapy as indicated (6) Iron deficiency anemia: Code(s): D50.9 - Iron deficiency anemia, unspecified Status: Acute Assessment and Plan: H&H currently 10.6/34.9 anemia labs indicate iron deficiency with iron 12, TIBC 265, % saturation 5, ferritin 102, B12 771, folate 12.6, transferrin 187 supplement with iron sulfate 325 b.i.d. trend H
[2022-09-07 08:57] LABS: Glucose Point of Care 201 mg/dl (65-105)
[2022-09-07] MEDS: CYCLOBENZAPRINE HCL 5 MG TABLET PO ×2 (09:04→21:29)
[2022-09-07] MEDS: PREGABALIN (*CRX) 75 MG CAPSULE PO ×2 (09:04→21:25)
[2022-09-07] MEDS: HYDROcodone/acetaminophen (*CRX) 7.5-325 MG TABLET 1 TAB PO ×2 (09:04→21:29)
[2022-09-07] MEDS: EMPAGLIFLOZIN 25 MG TABLET BY MOUTH (09:05)
[2022-09-07] MEDS: rOPINIRole HCL 0.25 MG TABLET PO (09:05)
[2022-09-07] MEDS: AZITHROMYCIN 250 MG TABLET 500 MG PO (09:05)
[2022-09-07] MEDS: DULoxetine HCL 30 MG CAPSULE.DR 60 MG PO (09:05)
[2022-09-07] MEDS: TERBINAFINE HCL 250 MG TABLET PO (09:06)
[2022-09-07] MEDS: FAMOTIDINE 20 MG TABLET PO (09:06)
[2022-09-07] MEDS: CEFDINIR 300 MG CAPSULE PO ×2 (09:06→21:25)
[2022-09-07] MEDS: metFORMIN HCL XR 500 MG TAB.SR.24H 1000 MG PO ×2 (09:06→18:17)
[2022-09-07] MEDS: ATORVASTATIN 20 MG TABLET PO (09:06)
[2022-09-07] MEDS: SACUBITRIL/VALSARTAN 49-51 MG TABLET 1 TABLET PO ×2 (09:06→21:25)
[2022-09-07] MEDS: ASPIRIN 81 MG ENTERIC TABLET PO (09:06)
[2022-09-07] MEDS: PANTOPRAZOLE 40 MG TABLET PO ×2 (09:07→18:18)
[2022-09-07] MEDS: FUROSEMIDE INJ 40 MG/4 ML VIAL IV PUSH ×2 (09:07→18:17)
[2022-09-07] MEDS: MICONAZOLE NITRATE 2% CREAM 30 GM TUBE 1 APPLIC TOPICAL ×2 (09:07→18:18)
[2022-09-07] MEDS: SPIRONOLACTONE 25 MG TABLET PO ×2 (09:07→18:19)
[2022-09-07] MEDS: carvediloL 25 MG TABLET PO ×2 (09:07→21:25)
[2022-09-07] MEDS: INSULIN GLARGINE (*BKC) 100 UNITS/ML 30 UNITS SUB-Q (09:08)
[2022-09-07] MEDS: INSULIN ASPART (*BKC) 100 UNITS/ML SUB-Q ×3 (09:08→18:15)
[2022-09-07 12:36] LABS: Glucose Point of Care 213 mg/dl (65-105)
[2022-09-07] MEDS: FERROUS SULFATE 324 MG TABLET PO ×2 (12:55→18:17)
[2022-09-07 13:23] LABS: Potassium 3.5 mmol/L (3.4-5.0)
[2022-09-07 17:49] LABS: Glucose Point of Care 191 mg/dl (65-105)
[2022-09-07 21:45] LABS: Glucose Point of Care 193 mg/dl (65-105)
[2022-09-07] MEDS: ONDANSETRON INJ 4 MG/2 ML VIAL IV PUSH (23:52)
[2022-09-08] VITALS (11 sets, daily range): BP systolic 106–116; BP diastolic 62–86; PULSE 51–87; RESP 16–17; TEMP 36.6–36.7; O2SAT 91–93
[2022-09-08] MEDS: oxyCODONE HCL (*CRX) 5 MG TAB IR 10 MG PO ×5 (00:19→23:28)
[2022-09-08 05:27] LABS: Hematocrit 36.4 % (37.0-47.0); Hemoglobin 10.9 g/dL (12.0-15.0); Mean Corpuscular HGB Conc 29.9 g/dl (32-36); Mean Corpuscular Hemoglobin 28.2 pg (26-34); Mean Corpuscular Volume 94.1 fl (80-100); Mean Platelet Volume 10.5 fl (7.4-10.4); Platelet Count Result 304 k/mm3 (150-375); Red Blood Count 3.87 M/mm3 (4.2-5.4); White Blood Count 6.1 K/mm3 (4.5-10.0)
[2022-09-08 05:46] LABS: Anion Gap 7 mmol/L (8-16); Blood Urea Nitrogen 20 mg/dL (7-17); Calcium 7.9 mg/dL (8.4-10.2); Carbon Dioxide 35 mmol/L (22-30); Chloride 95 mmol/L (98-107); Estimated CRCL calculation 85 ml/min; Estimated Glomerular Filt Rate > 60; Glucose 203 mg/dL (65-110); Potassium 2.7 mmol/L (3.4-5.0); Sodium 137 mmol/L (137-145)
[2022-09-08] MEDS: LEVOTHYROXINE SODIUM 112 MCG TABLET PO (06:07)
[2022-09-08] MEDS: HEPARIN SODIUM 5,000 UNITS/ML VIAL 5000 UNITS SUB-Q ×3 (06:07→20:40)
[2022-09-08] MEDS: LEVOTHYROXINE SODIUM 25 MCG TABLET PO (06:08)
--- NOTE | 2022-09-08 07:01 | PM.DS ---
DS: Summary Time Spent with Patient Time attestation: Total time spent providing and/or coordinating discharge services: DS: Data Data Completed and Pending Labs on day of discharge: Labs from last 24 hours 09/08/22 09/08/22 09/07/22 04:48 04:48 21:09 WBC 6.1 RBC 3.87 L Hgb 10.9 L Hct 36.4 L MCV 94.1 MCH 28.2 MCHC 29.9 L RDW 16.0 H Plt Count 304 MPV 10.5 H Sodium 137 Potassium 2.7 L* Chloride 95 L Carbon Dioxide 35 H Anion Gap 7 L BUN 20 H Creatinine 0.60 L Estim Creat Clear Calc 85 Estimated GFR > 60 Glucose 203 H POC Capillary Glucose 193 H Calcium 7.9 L Magnesium 2.0 09/07/22 09/07/22 09/07/22 17:47 13:08 12:29 WBC RBC Hgb Hct MCV MCH MCHC RDW Plt Count MPV Sodium Potassium 3.5 Chloride Carbon Dioxide Anion Gap BUN Creatinine Estim Creat Clear Calc Estimated GFR Glucose POC Capillary Glucose 191 H 213 H Calcium Magnesium 09/07/22 08:54 WBC RBC Hgb Hct MCV MCH MCHC RDW Plt Count MPV Sodium Potassium Chloride Carbon Dioxide Anion Gap BUN Creatinine Estim Creat Clear Calc Estimated GFR Glucose POC Capillary Glucose 201 H Calcium Magnesium Discharge Plan Discharge Discharge Instructions: resume [facility] services at discharge. [facility] can be reached at [phone]. [facility] will contact you for visit arrangements. Patient Instructions: Heart Failure (GEN) Discharge Medications: No Action spironolactone 25 mg tablet 25 mg PO BID aspirin [Nuria Low Dose Aspirin] 81 mg Tablet,Delayed Release (Dr/Ec) 81 mg PO DAILY ropinirole 0.25 mg Tablet 0.25 mg PO DAILY cyclobenzaprine 5 mg Tablet 5 mg PO BID PRN (Reason: Muscle Spasm) rizatriptan 10 mg tablet 10 mg PO DAILY PRN (Reason: MIGRAINE) Botox 200 unit recon soln 200 unit subcut [id number] Entresto 49-51 mg tablet 1 tablet PO BID furosemide 40 mg tablet 20 mg PO DAILY carvedilol [Coreg] 12.5 mg tablet 25 mg PO BID duloxetine [Cymbalta] 30 mg capsule,delayed release(DR/EC) 60 mg PO QAM atorvastatin 20 mg tablet 20 mg PO DAILY Levemir FlexTouch U-100 Insuln 100 unit/mL (3 mL) insulin pen 30 unit SUBCUT DAILY Trulicity 1.5 mg/0.5 mL pen injector 0.75 mg SUBCUT WEEKLY sennosides [senna] 8.6 mg tablet 8.6 mg PO BID terbinafine HCl 250 mg tablet 250 mg PO DAILY famotidine 20 mg tablet 20 mg PO DAILY pantoprazole 40 mg tablet,delayed release (DR/EC) 40 mg PO DAILY docusate sodium 100 mg capsule 100 mg PO BID gabapentin 300 mg capsule 300 mg PO TID ketoconazole 2 % cream 1 applic TOPICAL BID Rx Instructions: yeast infection metformin 1,000 mg Tablet Extended Release 24 Hr 1,000 mg PO BID Farxiga 10 mg tablet 10 mg PO DAILY levothyroxine 137 mcg tablet 137 mcg PO DAILY Qty: 90 0RF omeprazole 40 mg capsule,delayed release(DR/EC) 40 mg PO DAILY Qty: 90 1RF hydrocodone-acetaminophen [[place]] 7.5-325 mg tablet 1 tablet PO Q8H PRN (Reason: pain) Qty: 90 0RF calcium carbonate-vitamin D3 [Oyster Shell Calcium-Vit D3] 500 mg-5 mcg (200 unit) Tablet 1,000 mg PO DAILY Qty: 30 0RF pregabalin [Lyrica] 75 mg Capsule 75 mg PO Q12HR Qty: 60 0RF Date of admission: 09/03/22 16:17 Primary Care Provider: Tamar,Carlos Admitting Provider: Arron Coello V. Attending physician on admission: Graham Ngo Condition: Stable
--- NOTE | 2022-09-08 07:20 | P.PNIM_ITS ---
Progress Note: A&P Assessment and Plan (1) Sepsis: Code(s): A41.9 - Sepsis, unspecified organism Status: Acute Assessment and Plan: * patient meets SIRS criteria with leukocytosis, tachycardia, tachypnea, source of infection * source of infection appears to be pneumonia * patient also is hypotensive the blood pressure in the 70s and 80s systolic * IV fluids Stopped * LR bolus x2 given 09/03/2022 * IV antibiotics on board * blood cultures no growth to date * sputum culture ordered, not collected * chest x-ray shows pneumonia versus pulmonary edema * repeat chest xray 09/05/22 revealed bilateral pneumonia * Repeat chest x-ray 09/07/2022 reflecting improving pneumonia. * resolved at this time and patient is stable (2) Pneumonia due to COVID-19 virus: Code(s): U07.1 - COVID-19; J12.82 - Pneumonia due to coronavirus disease 2019 Status: Acute Assessment and Plan: * chest x-ray (09/01/22) shows elevation the right hemidiaphragm upon admission * chest x-ray from 09/05/2022 showed extensive bilateral consolidation * chest x-ray 09/07/22 showed improving pneumonia * CTA shows no PE however does show lower lung and dependent prominent atelectasis and hepatic lobe mass * supplemental oxygen currently 1 L, wean as tolerated * Remdesivir and dexamethasone course completed on 09/07/2022 * sputum culture ordered awaiting collection * blood cultures no growth to date * Deescalate antibiotics, stop IV vancomycin, cefepime, azithromycin convert to p.o. azithromycin and cefdinir * white blood cell count trending down at 6.1 today * trend labs * positive for COVID on 09/01/2022 and should be quarantined through the date of 09/08/2022 * [facility] * Obtain CRP 6.1, ESR 95, and procal >100.0 * MRSA swab negative * Ween O2 today, if not possible will order home O2 eval * Antibiotic treatment began on 09/01 and azithromycin and cefdinir started on the 09/04 antibiotic treatment for total of 7 days. (3) Acute respiratory distress syndrome (ARDS) due to 2019 novel coronavirus: Code(s): U07.1 - COVID-19; J80 - Acute respiratory distress syndrome Status: Acute Assessment and Plan: * Patient on 1 L of oxygen in satting at 94. Patient has not been able to maintain room air without your saturations falling in the 80s. * IV Lasix 40 mg b.i.d. deescalated to home dose, 40 mg p.o. b.i.d. * Shortness of breath improving on oxygen. Patient states that she only gets short of breath when oxygen is removed. 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 p.o. Lasix * continue aspirin * Echo severe hypokinesis to akinesis of the proximal and mid inferior septal and inferior lateral segments, EF 35
--- NOTE | 2022-09-08 07:20 | PM.IMPN ---
Progress Note: A&P Assessment and Plan (1) Sepsis: Code(s): A41.9 - Sepsis, unspecified organism Status: Acute Assessment and Plan: patient meets SIRS criteria with leukocytosis, tachycardia, tachypnea, source of infection source of infection appears to be pneumonia patient also is hypotensive the blood pressure in the 70s and 80s systolic IV fluids Stopped LR bolus x2 given 09/03/2022 IV antibiotics on board blood cultures no growth to date sputum culture ordered, not collected chest x-ray shows pneumonia versus pulmonary edema repeat chest xray 09/05/22 revealed bilateral pneumonia Repeat chest x-ray 09/07/2022 reflecting improving pneumonia. resolved at this time and patient is stable (2) Pneumonia due to COVID-19 virus: Code(s): U07.1 - COVID-19; J12.82 - Pneumonia due to coronavirus disease 2019 Status: Acute Assessment and Plan: chest x-ray (09/01/22) shows elevation the right hemidiaphragm upon admission chest x-ray from 09/05/2022 showed extensive bilateral consolidation chest x-ray 09/07/22 showed improving pneumonia CTA shows no PE however does show lower lung and dependent prominent atelectasis and hepatic lobe mass supplemental oxygen currently 1 L, wean as tolerated Remdesivir and dexamethasone course completed on 09/07/2022 sputum culture ordered awaiting collection blood cultures no growth to date Deescalate antibiotics, stop IV vancomycin, cefepime, azithromycin convert to p.o. azithromycin and cefdinir white blood cell count trending down at 6.1 today trend labs positive for COVID on 09/01/2022 and should be quarantined through the date of 09/08/2022 [facility] Therapy Obtain CRP 6.1, ESR 95, and procal >100.0 MRSA swab negative Ween O2 today, if not possible will order home O2 eval Antibiotic treatment began on 09/01 and azithromycin and cefdinir started on the 09/04 antibiotic treatment for total of 7 days. (3) Acute respiratory distress syndrome (ARDS) due to 2019 novel coronavirus: Code(s): U07.1 - COVID-19; J80 - Acute respiratory distress syndrome Status: Acute Assessment and Plan: Patient on 1 L of oxygen in satting at 94. Patient has not been able to maintain room air without your saturations falling in the 80s. IV Lasix 40 mg b.i.d. deescalated to home dose, 40 mg p.o. b.i.d. Shortness of breath improving on oxygen. Patient states that she only gets short of breath when oxygen is removed. Cough improving related to COVID-19 continue Trend respiratory status COVID-19 medications completed (4) Congestive heart failure: Code(s): I50.9 - Heart failure, unspecified Status: Acute Assessment and Plan: appears to be a 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 with exacerbation exacerbation noted by findings on chest x-ray, supplemental oxygen need, shortness of breath Entresto, carvedilol can be restarted as hypotension seems to be resolved chest x-ray does show possible pulmonary edema 09/03/22 Repeat chest xray extensive airspace consolidation 09/05/22 repeat CXR on 09/07/22 revealed improving pneumonia and no evidence of fluid/effusion IV BID Lasix deescalated to 40 mg b.i.d. p.o. Lasix continue aspirin Echo severe hypokinesis to akinesis of the proximal and mid inferior septal and inferior lateral segments, EF 35% with diastolic dysfunction trend urine output daily weights BNP 780 (5) Benign essential HTN: Code(s): I10 - Essential (primary) hypertension Status: Acute Assessment and Plan: Current BP 124/78 Restart home Entresto, spironolactone, furosemide, carvedilol as hypotension appears to be resolved Trend Blood pressure Adjust therapy as indicated (6) Iron deficiency anemia: Code(s): D50.9 - Iron defic
[2022-09-08] MEDS: AZITHROMYCIN 250 MG TABLET 500 MG PO (08:44)
[2022-09-08] MEDS: POTASSIUM CHLORIDE 20 MEQ PACKET (FOR LIQUID) 60 MEQ PO (08:44)
[2022-09-08] MEDS: carvediloL 25 MG TABLET PO ×2 (08:45→20:41)
[2022-09-08] MEDS: CEFDINIR 300 MG CAPSULE PO ×2 (08:45→20:41)
[2022-09-08] MEDS: DULoxetine HCL 30 MG CAPSULE.DR 60 MG PO (08:45)
[2022-09-08] MEDS: PANTOPRAZOLE 40 MG TABLET PO ×2 (08:46→18:00)
[2022-09-08] MEDS: EMPAGLIFLOZIN 25 MG TABLET BY MOUTH (08:46)
[2022-09-08] MEDS: ASPIRIN 81 MG ENTERIC TABLET PO (08:46)
[2022-09-08] MEDS: metFORMIN HCL XR 500 MG TAB.SR.24H 1000 MG PO ×2 (08:46→17:59)
[2022-09-08] MEDS: TERBINAFINE HCL 250 MG TABLET PO (08:46)
[2022-09-08] MEDS: ATORVASTATIN 20 MG TABLET PO (08:47)
[2022-09-08] MEDS: FAMOTIDINE 20 MG TABLET PO (08:47)
[2022-09-08] MEDS: SPIRONOLACTONE 25 MG TABLET PO ×2 (08:48→18:00)
[2022-09-08] MEDS: FUROSEMIDE 20 MG TABLET PO (08:48)
[2022-09-08] MEDS: MICONAZOLE NITRATE 2% CREAM 30 GM TUBE 1 APPLIC TOPICAL ×2 (08:49→18:03)
[2022-09-08] MEDS: SACUBITRIL/VALSARTAN 49-51 MG TABLET 1 TABLET PO ×2 (08:49→20:41)
[2022-09-08] MEDS: HYDROcodone/acetaminophen (*CRX) 7.5-325 MG TABLET 1 TAB PO (08:54)
[2022-09-08] MEDS: PREGABALIN (*CRX) 75 MG CAPSULE PO ×2 (08:54→20:41)
[2022-09-08] MEDS: CYCLOBENZAPRINE HCL 5 MG TABLET PO ×2 (08:54→20:42)
[2022-09-08] MEDS: INSULIN GLARGINE (*BKC) 100 UNITS/ML 30 UNITS SUB-Q (08:55)
[2022-09-08 09:09] LABS: Glucose Point of Care 183 mg/dl (65-105)
[2022-09-08 12:33] LABS: Glucose Point of Care 400 mg/dl (65-105)
[2022-09-08] MEDS: INSULIN ASPART (*BKC) 100 UNITS/ML SUB-Q (12:40)
[2022-09-08] MEDS: FERROUS SULFATE 324 MG TABLET PO ×2 (12:45→17:59)
[2022-09-08 14:06] LABS: Potassium 3.5 mmol/L (3.4-5.0)
[2022-09-08 17:28] LABS: Glucose Point of Care 175 mg/dl (65-105)
[2022-09-08] MEDS: FUROSEMIDE 40 MG TABLET PO (18:00)
[2022-09-08] MEDS: rOPINIRole HCL 0.25 MG TABLET PO (20:41)
[2022-09-08 21:01] LABS: Glucose Point of Care 314 mg/dl (65-105)
[2022-09-09] VITALS (13 sets, daily range): BP systolic 105–126; BP diastolic 55–91; PULSE 54–98; RESP 16–18; TEMP 36.4–36.7; O2SAT 92–97
[2022-09-09 06:14] LABS: Hematocrit 37.5 % (37.0-47.0); Hemoglobin 11.3 g/dL (12.0-15.0); Mean Corpuscular HGB Conc 30.1 g/dl (32-36); Mean Corpuscular Hemoglobin 28.5 pg (26-34); Mean Corpuscular Volume 94.5 fl (80-100); Mean Platelet Volume 10.4 fl (7.4-10.4); Platelet Count Result 323 k/mm3 (150-375); Red Blood Count 3.97 M/mm3 (4.2-5.4); Red Cell Distribution Width 16.2 % (11.5-14.5); White Blood Count 7.5 K/mm3 (4.5-10.0)
[2022-09-09] MEDS: HEPARIN SODIUM 5,000 UNITS/ML VIAL 5000 UNITS SUB-Q ×3 (06:15→21:06)
[2022-09-09] MEDS: oxyCODONE HCL (*CRX) 5 MG TAB IR 10 MG PO ×4 (06:16→23:02)
[2022-09-09] MEDS: LEVOTHYROXINE SODIUM 112 MCG TABLET PO (06:17)
[2022-09-09] MEDS: LEVOTHYROXINE SODIUM 25 MCG TABLET PO (06:17)
[2022-09-09 06:42] LABS: Anion Gap 6 mmol/L (8-16); Blood Urea Nitrogen 20 mg/dL (7-17); Calcium 8.3 mg/dL (8.4-10.2); Carbon Dioxide 38 mmol/L (22-30); Chloride 99 mmol/L (98-107); Estimated CRCL calculation 85 ml/min; Estimated Glomerular Filt Rate > 60; Glucose 161 mg/dL (65-110); Potassium 3.2 mmol/L (3.4-5.0); Sodium 143 mmol/L (137-145)
--- NOTE | 2022-09-09 07:03 | PM.DS ---
DS: Admitting Diagnosis Discharge Date 09/09/22 Admitting Diagnosis COVID pneumonia, hypoxia DS: Discharge Diagnosis Discharge Diagnosis (1) Sepsis: Code(s): A41.9 - Sepsis, unspecified organism Status: Acute (2) Pneumonia due to COVID-19 virus: Code(s): U07.1 - COVID-19; J12.82 - Pneumonia due to coronavirus disease 2019 Status: Acute (3) Acute respiratory distress syndrome (ARDS) due to 2019 novel coronavirus: Code(s): U07.1 - COVID-19; J80 - Acute respiratory distress syndrome Status: Acute (4) Congestive heart failure: Code(s): I50.9 - Heart failure, unspecified Status: Acute (5) Benign essential HTN: Code(s): I10 - Essential (primary) hypertension Status: Acute (6) Iron deficiency anemia: Code(s): D50.9 - Iron deficiency anemia, unspecified Status: Acute (7) Type 2 diabetes mellitus without complications: Code(s): E11.9 - Type 2 diabetes mellitus without complications Status: Acute (8) Fibromyalgia: Code(s): M79.7 - Fibromyalgia Status: Acute (9) Hyperlipidemia: Code(s): E78.5 - Hyperlipidemia, unspecified Status: Acute (10) Hypokalemia: Code(s): E87.6 - Hypokalemia Status: Acute Plan Reviewed case with Dr. Vázquez for further recommendations Add ID pharm DS: Summary Hospital Course Reason for hospitalization: COVID pneumonia, hypoxia Hospital Course: 56-year-old female with history of hypertension, hypothyroidism, diabetes, and status post L4-L5 burst fracture surgery and [facility] in June 2022. Patient arrived to the ER on 09/01/2022 with chief complaints of increased back spasms. Patient had taken hydrocodone and Flexeril at home with minimal relief. CT of chest feeling no evidence PE, and lower lung predominant atelectasis, hepatic lobe mass. Chest x-ray chronic elevation of right hemidiaphragm. Patient tested COVID positive do it was treated for coverage of hospital acquired pneumonia due to recent hospitalization. Antibiotics included vancomycin, cefepime and azithromycin. Labs on admission white count of 11.1. Patient was hypoxic with an oxygen saturation 84 on admission. Patient was put on 2 L of oxygen. Patient put on remdesivir and dexamethasone for a total of 5 days. Patient was hypotensive in the beginning of her stay and was given fluids, blood pressure stable on discharge. Blood cultures ordered and were negative. Repeat chest x-ray 09/03/2022 shows pulmonary edema versus pneumonia. Antibiotics were deescalated on 09/04/2022 to azithromycin and cefdinir. Repeat chest x-ray on 09/05/2022 revealed extensive bilateral consolidation. Repeat chest x-ray on 09/07/2022 reflect improving pneumonia. Patient completed her 7 day treatment of antibiotics in hospital. Patient's COVID symptoms such as cough and shortness of breath improved during hospital stay. Patient was put IV Lasix 40 mg b.i.d. due to history congestive heart failure. Patient's BNP on arrival was 780. Echocardiogram revealed severe hypokinesis and akinesis of the proximal and mid inferior septal and inferior lateral segments, EF 35% with diastolic dysfunction Patient's Lasix is 40 mg p.o. b.i.d. patient did have hypokalemia during this stay and potassium had to be replaced. Patient was put back on her home dose of Lasix and potassium has seemed to improved. Plan to order BMP within a week. Time Spent with Patient Time attestation: Total time spent providing and/or coordinating discharge services: Exam Narrative: GENERAL: Comfortable, no acute distress, patient in back brace HENMT: moist mucous membranes EYES: EOM intact b/l NECK: no lymphadenopathy RESPIRATORY: Limited due to back brace, upper lungs clear to auscultation CARDIO: RRR GI: soft, nontender, bowel sounds present SKIN: no rashes EXTREMITIES: no edema, redness or tenderness DS: Data Data Completed and Pending Labs on day of di
[2022-09-09] MEDS: HYDROcodone/acetaminophen (*CRX) 7.5-325 MG TABLET 1 TAB PO ×2 (08:17→16:21)
[2022-09-09] MEDS: CYCLOBENZAPRINE HCL 5 MG TABLET PO ×2 (08:17→21:06)
[2022-09-09] MEDS: ATORVASTATIN 20 MG TABLET PO (08:18)
[2022-09-09] MEDS: PANTOPRAZOLE 40 MG TABLET PO ×2 (08:18→17:35)
[2022-09-09] MEDS: metFORMIN HCL XR 500 MG TAB.SR.24H 1000 MG PO ×2 (08:18→17:35)
[2022-09-09] MEDS: ASPIRIN 81 MG ENTERIC TABLET PO (08:18)
[2022-09-09] MEDS: DULoxetine HCL 30 MG CAPSULE.DR 60 MG PO (08:18)
[2022-09-09] MEDS: CEFDINIR 300 MG CAPSULE PO ×2 (08:18→21:06)
[2022-09-09] MEDS: FAMOTIDINE 20 MG TABLET PO (08:18)
[2022-09-09] MEDS: carvediloL 25 MG TABLET PO ×2 (08:19→21:06)
[2022-09-09] MEDS: FUROSEMIDE 40 MG TABLET PO ×2 (08:20→17:35)
[2022-09-09] MEDS: EMPAGLIFLOZIN 25 MG TABLET BY MOUTH (08:20)
[2022-09-09] MEDS: SACUBITRIL/VALSARTAN 49-51 MG TABLET 1 TABLET PO ×2 (08:20→21:06)
[2022-09-09] MEDS: SPIRONOLACTONE 25 MG TABLET PO ×2 (08:20→17:36)
[2022-09-09] MEDS: AZITHROMYCIN 250 MG TABLET 500 MG PO (08:20)
[2022-09-09] MEDS: TERBINAFINE HCL 250 MG TABLET PO (08:21)
[2022-09-09 08:22] LABS: Glucose Point of Care 119 mg/dl (65-105)
[2022-09-09] MEDS: INSULIN GLARGINE (*BKC) 100 UNITS/ML 30 UNITS SUB-Q (08:24)
[2022-09-09] MEDS: PREGABALIN (*CRX) 75 MG CAPSULE PO ×2 (08:24→21:06)
--- NOTE | 2022-09-09 09:40 | PCNWS ---
Weekly nutritional screen. Patient is tolerating current Diabetic consistent carb diet with adequate intake at 75%. No weight loss reported. No nutritional needs at this time.
[2022-09-09] MEDS: MICONAZOLE NITRATE 2% CREAM 30 GM TUBE 1 APPLIC TOPICAL ×2 (10:15→17:37)
[2022-09-09] MEDS: ONDANSETRON INJ 4 MG/2 ML VIAL IV PUSH (10:15)
[2022-09-09] MEDS: FERROUS SULFATE 324 MG TABLET PO ×2 (10:15→17:35)
--- NOTE | 2022-09-09 10:29 | ECG_ITS ---
Measurements Intervals [place] Rate: 77 P: 35 AK: 121 QRS: 3 QRSD: 85 T: -3 QT: 432 QTc: 490 Interpretive Statements SINUS RHYTHM WITH OCCASIONAL SUPRAVENTRICULAR PREMATURE COMPLEXES NONSPECIFIC ST & T-WAVE ABNORMALITY COMPARED TO ECG 09/01/2022 19:35:50 NO SIGNIFICANT CHANGE Electronically Signed On 09-09-2022 20:03:29 [facility] by Ankit Oropeza M.D.
[2022-09-09 11:13] LABS: Troponin I 0.018 ng/mL (0.000-0.034)
[2022-09-09 12:22] LABS: Glucose Point of Care 222 mg/dl (65-105)
[2022-09-09] MEDS: INSULIN ASPART (*BKC) 100 UNITS/ML SUB-Q ×2 (12:27→17:30)
--- NOTE | 2022-09-09 13:20 | PCOTNOTE ---
Attempted to see patient this PM, patient reports willing to take bed bath due to spinal precautions and back brace requirement for OOB activity, however, unwilling to perform other activity at this time OOB. Patient reports I just got a oxycodone pill, I'm about to take a nap in 20 minutes. Patient requested OT and PT attempt to see her tomorrow for therapy. Notified RN. Patient not seen for OT. Will continue plan of care 09/10/22.
--- NOTE | 2022-09-09 14:34 | P.PNIM_ITS ---
Progress Note: A&P Assessment and Plan (1) Sepsis: Code(s): A41.9 - Sepsis, unspecified organism Status: Acute Assessment and Plan: * ?patient meets SIRS criteria with leukocytosis, tachycardia, tachypnea, source of infection * ?source of infection appears to be pneumonia * ?patient also is hypotensive the blood pressure in the 70s and 80s systolic * ?IV fluids Stopped * ?LR bolus x2 given 09/03/2022 * ?IV antibiotics on board * ?blood cultures no growth to date * ?sputum culture ordered, not collected * ?chest x-ray shows pneumonia versus pulmonary edema * ?repeat chest xray 09/05/22 revealed bilateral pneumonia * Repeat chest x-ray 09/07/2022 reflecting improving pneumonia. * ?resolved at this time and patient is stable (2) Pneumonia due to COVID-19 virus: Code(s): U07.1 - COVID-19; J12.82 - Pneumonia due to coronavirus disease 2019 Status: Acute Assessment and Plan: * ?chest x-ray (09/01/22) shows elevation the right hemidiaphragm upon admission * ?chest x-ray from 09/05/2022 showed extensive bilateral consolidation * chest x-ray 09/07/22 showed improving pneumonia * ?CTA shows no PE however does show lower lung and dependent prominent atelectasis and hepatic lobe mass * ?supplemental oxygen currently 1 L, wean as tolerated * ?Remdesivir and dexamethasone course completed on 09/07/2022 * ?sputum culture ordered awaiting collection * ?blood cultures no growth to date * ?Deescalate antibiotics, stop IV vancomycin, cefepime, azithromycin convert to p.o. azithromycin and cefdinir * ?white blood cell count trending down at 5.1 today * ?trend labs * ?positive for COVID on 09/01/2022 * ?[facility] IS Therapy * ?Obtain CRP 6.1, ESR 95, and procal >100.0 * ?MRSA swab negative * Antibiotic course completed * Patient weened off of oxygen * Patient awaiting placement into rehab services (3) Acute respiratory distress syndrome (ARDS) due to 2019 novel coronavirus: Code(s): U07.1 - COVID-19; J80 - Acute respiratory distress syndrome Status: Acute Assessment and Plan: * Patient on 1 L of oxygen in setting at 94.? Patient has not been able to maintain room air without your saturations falling in the 80s. * IV Lasix 40 mg b.i.d. * Shortness of breath improving on oxygen.? Patient states that she only gets short of breath when oxygen is removed.? * Cough improving * ?related to COVID-19 * ?continue Trend respiratory status * ?COVID-19 medications completed today (4) Congestive heart failure: Code(s): I50.9 - Heart failure, unspecified Status: Acute Assessment and Plan: * ?appears to be a 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 with exacerbation * ?exacerbation noted by findings on chest x-ray, supplemental oxygen need, shortness of breath * ?Entresto, carvedilol can be restarted as hypotension seems to be resolved * ?chest x-ray does show possible pulmonary edema 09/03/22 * ?Repeat chest xray extensive airspace consolidation 09/05/22 * ?Put PO Furosemide on hold and Continue on IV BID Lasix * ?continue aspirin * ?Echo severe hypokinesis to akinesis of the proximal and mid inferior septal and inferior lateral segments, EF 35% with diastolic dysfunction * ?trend urine output * ?daily weights * ?BNP 780 (5) Benign essential HTN: Code(s): I10 - Essential (primary) hypertension Status: Acute Assessment and Plan: * Current BP? 124/78 * Restart home Entresto, spironolactone, furosemide, carvedilol as hypotension appears to be resolved * Trend Blood pressure * Adjust therapy as indicated
--- NOTE | 2022-09-09 14:34 | PM.IMPN ---
Progress Note: A&P Assessment and Plan (1) Sepsis: Code(s): A41.9 - Sepsis, unspecified organism Status: Acute Assessment and Plan: ?patient meets SIRS criteria with leukocytosis, tachycardia, tachypnea, source of infection ?source of infection appears to be pneumonia ?patient also is hypotensive the blood pressure in the 70s and 80s systolic ?IV fluids Stopped ?LR bolus x2 given 09/03/2022 ?IV antibiotics on board ?blood cultures no growth to date ?sputum culture ordered, not collected ?chest x-ray shows pneumonia versus pulmonary edema ?repeat chest xray 09/05/22 revealed bilateral pneumonia Repeat chest x-ray 09/07/2022 reflecting improving pneumonia. ?resolved at this time and patient is stable (2) Pneumonia due to COVID-19 virus: Code(s): U07.1 - COVID-19; J12.82 - Pneumonia due to coronavirus disease 2019 Status: Acute Assessment and Plan: ?chest x-ray (09/01/22) shows elevation the right hemidiaphragm upon admission ?chest x-ray from 09/05/2022 showed extensive bilateral consolidation chest x-ray 09/07/22 showed improving pneumonia ?CTA shows no PE however does show lower lung and dependent prominent atelectasis and hepatic lobe mass ?supplemental oxygen currently 1 L, wean as tolerated ?Remdesivir and dexamethasone course completed on 09/07/2022 ?sputum culture ordered awaiting collection ?blood cultures no growth to date ?Deescalate antibiotics, stop IV vancomycin, cefepime, azithromycin convert to p.o. azithromycin and cefdinir ?white blood cell count trending down at 5.1 today ?trend labs ?positive for COVID on 09/01/2022 ?Cornet and IS Therapy ?Obtain CRP 6.1, ESR 95, and procal >100.0 ?MRSA swab negative Antibiotic course completed Patient weened off of oxygen Patient awaiting placement into rehab services (3) Acute respiratory distress syndrome (ARDS) due to 2019 novel coronavirus: Code(s): U07.1 - COVID-19; J80 - Acute respiratory distress syndrome Status: Acute Assessment and Plan: Patient on 1 L of oxygen in setting at 94.? Patient has not been able to maintain room air without your saturations falling in the 80s. IV Lasix 40 mg b.i.d. Shortness of breath improving on oxygen.? Patient states that she only gets short of breath when oxygen is removed.? Cough improving ?related to COVID-19 ?continue Trend respiratory status ?COVID-19 medications completed today (4) Congestive heart failure: Code(s): I50.9 - Heart failure, unspecified Status: Acute Assessment and Plan: ?appears to be a 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 with exacerbation ?exacerbation noted by findings on chest x-ray, supplemental oxygen need, shortness of breath ?Entresto, carvedilol can be restarted as hypotension seems to be resolved ?chest x-ray does show possible pulmonary edema 09/03/22 ?Repeat chest xray extensive airspace consolidation 09/05/22 ?Put PO Furosemide on hold and Continue on IV BID Lasix ?continue aspirin ?Echo severe hypokinesis to akinesis of the proximal and mid inferior septal and inferior lateral segments, EF 35% with diastolic dysfunction ?trend urine output ?daily weights ?BNP 780 (5) Benign essential HTN: Code(s): I10 - Essential (primary) hypertension Status: Acute Assessment and Plan: Current BP? 124/78 Restart home Entresto, spironolactone, furosemide, carvedilol as hypotension appears to be resolved Trend Blood pressure Adjust therapy as indicated (6) Iron deficiency anemia: Code(s): D50.9 - Iron deficiency anemia, unspecified Status: Acute Assessment and Plan: ?H&H currently 10.6/34.9 ?anemia labs indicate iron deficiency with iron 12, TIBC 265, % saturation 5, ferritin 102, B12 771, folate 12.6, transferrin 187 ?supplement with iron sulfate 325 b.i.d. ?trend H&H ?transfuse if less than 7 (7) Type 2 diabetes mellitus without
[2022-09-09] MEDS: POTASSIUM CHLORIDE 20 MEQ PACKET (FOR LIQUID) 40 MEQ PO (14:52)
--- NOTE | 2022-09-09 16:10 | PC.NURSE ---
reviewed plan of care with care coordination, they do not have insurance auth for rehab facility, discharge will have to be on hold today
[2022-09-09 16:47] LABS: Glucose Point of Care 214 mg/dl (65-105)
--- NOTE | 2022-09-09 18:05 | PC.NURSE ---
did not receive insurance auth for rehab, discharge on hold
[2022-09-09] MEDS: rOPINIRole HCL 0.25 MG TABLET PO (21:06)
[2022-09-09 21:11] LABS: Glucose Point of Care 169 mg/dl (65-105)
[2022-09-10] VITALS (11 sets, daily range): BP systolic 103–135; BP diastolic 52–96; PULSE 66–103; RESP 16–20; TEMP 36.4–37.1; O2SAT 91–95
[2022-09-10 05:09] LABS: Hemoglobin 10.9 g/dL (12.0-15.0); Mean Corpuscular HGB Conc 30.3 g/dl (32-36); Mean Corpuscular Hemoglobin 27.9 pg (26-34); Mean Corpuscular Volume 92.3 fl (80-100); Platelet Count Result 317 k/mm3 (150-375); Red Cell Distribution Width 16.4 % (11.5-14.5); White Blood Count 6.6 K/mm3 (4.5-10.0)
[2022-09-10 05:23] LABS: Anion Gap 8 mmol/L (8-16); Blood Urea Nitrogen 21 mg/dL (7-17); Calcium 7.9 mg/dL (8.4-10.2); Carbon Dioxide 38 mmol/L (22-30); Chloride 97 mmol/L (98-107); Estimated CRCL calculation 85 ml/min; Estimated Glomerular Filt Rate > 60; Glucose 121 mg/dL (65-110); Potassium 2.9 mmol/L (3.4-5.0); Sodium 143 mmol/L (137-145)
[2022-09-10] MEDS: HEPARIN SODIUM 5,000 UNITS/ML VIAL 5000 UNITS SUB-Q ×3 (05:32→21:05)
[2022-09-10] MEDS: LEVOTHYROXINE SODIUM 112 MCG TABLET PO (05:32)
[2022-09-10] MEDS: oxyCODONE HCL (*CRX) 5 MG TAB IR 10 MG PO ×4 (05:32→23:12)
[2022-09-10] MEDS: LEVOTHYROXINE SODIUM 25 MCG TABLET PO (05:32)
--- NOTE | 2022-09-10 07:13 | P.PNIM_ITS ---
Progress Note: A&P Assessment and Plan (1) Sepsis: Code(s): A41.9 - Sepsis, unspecified organism Status: Acute Assessment and Plan: * ?patient meets SIRS criteria with leukocytosis, tachycardia, tachypnea, source of infection * ?source of infection appears to be pneumonia * ?patient also is hypotensive the blood pressure in the 70s and 80s systolic * ?IV fluids Stopped * ?LR bolus x2 given 09/03/2022 * ?IV antibiotics on board * ?blood cultures no growth to date * ?sputum culture ordered, not collected * ?chest x-ray shows pneumonia versus pulmonary edema * ?repeat chest xray 09/05/22 revealed bilateral pneumonia * Repeat chest x-ray 09/07/2022 reflecting improving pneumonia. * resolved at this time and patient is stable (2) Pneumonia due to COVID-19 virus: Code(s): U07.1 - COVID-19; J12.82 - Pneumonia due to coronavirus disease 2019 Status: Acute Assessment and Plan: * ?chest x-ray (09/01/22) shows elevation the right hemidiaphragm upon admission * ?chest x-ray from 09/05/2022 showed extensive bilateral consolidation * chest x-ray 09/07/22 showed improving pneumonia * ?CTA shows no PE however does show lower lung and dependent prominent atelectasis and hepatic lobe mass * ?supplemental oxygen currently 1 L, wean as tolerated * ?Remdesivir and dexamethasone course completed on 09/07/2022 * ?sputum culture not collected * ?blood cultures no growth - final * ?Deescalate antibiotics, stop IV vancomycin, cefepime, azithromycin convert to p.o. azithromycin and cefdinir * ?white blood cell count trending down at 5.1 today * ?trend labs * ?positive for COVID on 09/01/2022 * ?Cornet and IS Therapy * ?Obtain CRP 6.1, ESR 95, and procal >100.0 * ?MRSA swab negative * Antibiotic course completed * Patient weened off of oxygen * Patient awaiting placement into rehab services (3) Acute respiratory distress syndrome (ARDS) due to 2019 novel coronavirus: Code(s): U07.1 - COVID-19; J80 - Acute respiratory distress syndrome Status: Acute Assessment and Plan: * Patient on 1 L of oxygen in setting at 94.? Patient has not been able to maintain room air without your saturations falling in the 80s. * IV Lasix 40 mg b.i.d. deescalated to 40mg BID PO * Shortness of breath improving on oxygen.? Patient states that she only gets short of breath when oxygen is removed.? * Cough improving * ?related to COVID-19 * ?continue Trend respiratory status * ?COVID-19 medications completed * Patient off of oxygen and satting in the 90s * shortness of breath improved. (4) Congestive heart failure: Code(s): I50.9 - Heart failure, unspecified Status: Acute Assessment and Plan: * ?appears to be a 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 with exacerbation * ?exacerbation noted by findings on chest x-ray, supplemental oxygen need, shortness of breath * ?Entresto, carvedilol can be restarted as hypotension seems to be resolved * ?chest x-ray does show possible pulmonary edema 09/03/22 * ?Repeat chest xray extensive airspace consolidation 09/05/22 * ?Home furosemide restarted - 40mg BID PO * ?continue aspirin * ?Echo severe hypokinesis to akinesis of the proximal and mid inferior septal and inferior lateral segments, EF 35% with diastolic dysfunction * ?trend urine output * ?daily weights * ?BNP 780 (5) Benign essential HTN: Code(s): I10 - Essential (primary) hypertension Status: Acute Assessment and Plan: * Current BP? 124/78 * Restart home Entresto, spironolactone, furosemide, carvedilol as hypotension
--- NOTE | 2022-09-10 07:13 | PM.IMPN ---
Progress Note: A&P Assessment and Plan (1) Sepsis: Code(s): A41.9 - Sepsis, unspecified organism Status: Acute Assessment and Plan: ?patient meets SIRS criteria with leukocytosis, tachycardia, tachypnea, source of infection ?source of infection appears to be pneumonia ?patient also is hypotensive the blood pressure in the 70s and 80s systolic ?IV fluids Stopped ?LR bolus x2 given 09/03/2022 ?IV antibiotics on board ?blood cultures no growth to date ?sputum culture ordered, not collected ?chest x-ray shows pneumonia versus pulmonary edema ?repeat chest xray 09/05/22 revealed bilateral pneumonia Repeat chest x-ray 09/07/2022 reflecting improving pneumonia. resolved at this time and patient is stable (2) Pneumonia due to COVID-19 virus: Code(s): U07.1 - COVID-19; J12.82 - Pneumonia due to coronavirus disease 2019 Status: Acute Assessment and Plan: ?chest x-ray (09/01/22) shows elevation the right hemidiaphragm upon admission ?chest x-ray from 09/05/2022 showed extensive bilateral consolidation chest x-ray 09/07/22 showed improving pneumonia ?CTA shows no PE however does show lower lung and dependent prominent atelectasis and hepatic lobe mass ?supplemental oxygen currently 1 L, wean as tolerated ?Remdesivir and dexamethasone course completed on 09/07/2022 ?sputum culture not collected ?blood cultures no growth - final ?Deescalate antibiotics, stop IV vancomycin, cefepime, azithromycin convert to p.o. azithromycin and cefdinir ?white blood cell count trending down at 5.1 today ?trend labs ?positive for COVID on 09/01/2022 ?Cornet and IS Therapy ?Obtain CRP 6.1, ESR 95, and procal >100.0 ?MRSA swab negative Antibiotic course completed Patient weened off of oxygen Patient awaiting placement into rehab services (3) Acute respiratory distress syndrome (ARDS) due to 2019 novel coronavirus: Code(s): U07.1 - COVID-19; J80 - Acute respiratory distress syndrome Status: Acute Assessment and Plan: Patient on 1 L of oxygen in setting at 94.? Patient has not been able to maintain room air without your saturations falling in the 80s. IV Lasix 40 mg b.i.d. deescalated to 40mg BID PO Shortness of breath improving on oxygen.? Patient states that she only gets short of breath when oxygen is removed.? Cough improving ?related to COVID-19 ?continue Trend respiratory status ?COVID-19 medications completed Patient off of oxygen and satting in the 90s shortness of breath improved. (4) Congestive heart failure: Code(s): I50.9 - Heart failure, unspecified Status: Acute Assessment and Plan: ?appears to be a 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 with exacerbation ?exacerbation noted by findings on chest x-ray, supplemental oxygen need, shortness of breath ?Entresto, carvedilol can be restarted as hypotension seems to be resolved ?chest x-ray does show possible pulmonary edema 09/03/22 ?Repeat chest xray extensive airspace consolidation 09/05/22 ?Home furosemide restarted - 40mg BID PO ?continue aspirin ?Echo severe hypokinesis to akinesis of the proximal and mid inferior septal and inferior lateral segments, EF 35% with diastolic dysfunction ?trend urine output ?daily weights ?BNP 780 (5) Benign essential HTN: Code(s): I10 - Essential (primary) hypertension Status: Acute Assessment and Plan: Current BP? 124/78 Restart home Entresto, spironolactone, furosemide, carvedilol as hypotension appears to be resolved Trend Blood pressure Adjust therapy as indicated (6) Iron deficiency anemia: Code(s): D50.9 - Iron deficiency anemia, unspecified Status: Acute Assessment and Plan: ?H&H currently 10.6/34.9 ?anemia labs indicate iron deficiency with iron 12, TIBC 265, % saturation 5, ferritin 102, B12 771, folate 12.6, transferrin 187 ?supplement with iron sulfate 325 b.i.d. ?
[2022-09-10 08:53] LABS: Glucose Point of Care 121 mg/dl (65-105)
[2022-09-10] MEDS: ATORVASTATIN 20 MG TABLET PO (09:41)
[2022-09-10] MEDS: carvediloL 25 MG TABLET PO ×2 (09:41→21:05)
[2022-09-10] MEDS: FUROSEMIDE 40 MG TABLET PO ×2 (09:41→17:24)
[2022-09-10] MEDS: DULoxetine HCL 30 MG CAPSULE.DR 60 MG PO (09:41)
[2022-09-10] MEDS: SACUBITRIL/VALSARTAN 49-51 MG TABLET 1 TABLET PO ×2 (09:42→21:05)
[2022-09-10] MEDS: ASPIRIN 81 MG ENTERIC TABLET PO (09:42)
[2022-09-10] MEDS: PANTOPRAZOLE 40 MG TABLET PO ×2 (09:42→17:25)
[2022-09-10] MEDS: FERROUS SULFATE 324 MG TABLET PO ×2 (09:42→17:24)
[2022-09-10] MEDS: metFORMIN HCL XR 500 MG TAB.SR.24H 1000 MG PO ×2 (09:42→17:24)
[2022-09-10] MEDS: EMPAGLIFLOZIN 25 MG TABLET BY MOUTH (09:42)
[2022-09-10] MEDS: FAMOTIDINE 20 MG TABLET PO (09:42)
[2022-09-10] MEDS: TERBINAFINE HCL 250 MG TABLET PO (09:43)
[2022-09-10] MEDS: SPIRONOLACTONE 25 MG TABLET PO ×2 (09:43→17:25)
[2022-09-10] MEDS: MICONAZOLE NITRATE 2% CREAM 30 GM TUBE 1 APPLIC TOPICAL (09:46)
[2022-09-10] MEDS: PREGABALIN (*CRX) 75 MG CAPSULE PO ×2 (09:48→21:05)
[2022-09-10] MEDS: INSULIN GLARGINE (*BKC) 100 UNITS/ML 30 UNITS SUB-Q (09:49)
[2022-09-10] MEDS: POTASSIUM CHLORIDE 20 MEQ PACKET (FOR LIQUID) 60 MEQ PO (10:02)
[2022-09-10] MEDS: CYCLOBENZAPRINE HCL 5 MG TABLET PO ×2 (11:16→21:05)
[2022-09-10] MEDS: INSULIN ASPART (*BKC) 100 UNITS/ML SUB-Q ×2 (12:18→17:28)
[2022-09-10 12:21] LABS: Glucose Point of Care 202 mg/dl (65-105)
[2022-09-10 12:39] LABS: Potassium 3.4 mmol/L (3.4-5.0)
[2022-09-10] MEDS: HYDROcodone/acetaminophen (*CRX) 7.5-325 MG TABLET 1 TAB PO (15:06)
[2022-09-10 17:26] LABS: Glucose Point of Care 196 mg/dl (65-105)
[2022-09-10] MEDS: rOPINIRole HCL 0.25 MG TABLET PO (21:06)
[2022-09-10 21:14] LABS: Glucose Point of Care 132 mg/dl (65-105)
[2022-09-11] VITALS (10 sets, daily range): BP systolic 105–126; BP diastolic 55–76; PULSE 81–102; RESP 12–16; TEMP 36.4–37.1; O2SAT 91–96
[2022-09-11 05:12] LABS: Hematocrit 35.6 % (37.0-47.0); Hemoglobin 10.7 g/dL (12.0-15.0); Mean Corpuscular HGB Conc 30.1 g/dl (32-36); Mean Corpuscular Hemoglobin 27.9 pg (26-34); Mean Platelet Volume 9.9 fl (7.4-10.4); Platelet Count Result 319 k/mm3 (150-375); Red Blood Count 3.83 M/mm3 (4.2-5.4); Red Cell Distribution Width 16.6 % (11.5-14.5); White Blood Count 7.5 K/mm3 (4.5-10.0)
[2022-09-11] MEDS: HEPARIN SODIUM 5,000 UNITS/ML VIAL 5000 UNITS SUB-Q ×3 (05:30→21:11)
[2022-09-11] MEDS: LEVOTHYROXINE SODIUM 112 MCG TABLET PO (05:30)
[2022-09-11 05:31] LABS: Alanine Aminotransferase 21 U/L (6-35); Albumin Level 3.4 g/dL (3.5-5.1); Alkaline Phosphatase 97 U/L (38-126); Anion Gap 5 mmol/L (8-16); Aspartate Amino Transferase 16 U/L (14-36); Bilirubin,Total 0.5 mg/dL (0.2-1.3); Blood Urea Nitrogen 22 mg/dL (7-17); Calcium 8.1 mg/dL (8.4-10.2); Carbon Dioxide 37 mmol/L (22-30); Chloride 100 mmol/L (98-107); Estimated CRCL calculation 85 ml/min; Estimated Glomerular Filt Rate > 60; Glucose 95 mg/dL (65-110); Potassium 3.2 mmol/L (3.4-5.0); Sodium 142 mmol/L (137-145)
[2022-09-11] MEDS: LEVOTHYROXINE SODIUM 25 MCG TABLET PO (05:31)
[2022-09-11] MEDS: oxyCODONE HCL (*CRX) 5 MG TAB IR 10 MG PO ×4 (05:31→23:20)
[2022-09-11 08:20] LABS: Glucose Point of Care 126 mg/dl (65-105)
[2022-09-11] MEDS: ATORVASTATIN 20 MG TABLET PO (09:38)
[2022-09-11] MEDS: ASPIRIN 81 MG ENTERIC TABLET PO (09:38)
[2022-09-11] MEDS: DULoxetine HCL 30 MG CAPSULE.DR 60 MG PO (09:40)
[2022-09-11] MEDS: EMPAGLIFLOZIN 25 MG TABLET BY MOUTH (09:40)
[2022-09-11] MEDS: FAMOTIDINE 20 MG TABLET PO (09:40)
[2022-09-11] MEDS: PREGABALIN (*CRX) 75 MG CAPSULE PO ×2 (09:41→21:12)
[2022-09-11] MEDS: TERBINAFINE HCL 250 MG TABLET PO (09:41)
[2022-09-11] MEDS: PANTOPRAZOLE 40 MG TABLET PO ×2 (09:41→17:30)
[2022-09-11] MEDS: INSULIN GLARGINE (*BKC) 100 UNITS/ML 30 UNITS SUB-Q (09:41)
[2022-09-11] MEDS: metFORMIN HCL XR 500 MG TAB.SR.24H 1000 MG PO ×2 (09:42→17:29)
[2022-09-11] MEDS: FERROUS SULFATE 324 MG TABLET PO ×2 (09:42→17:29)
[2022-09-11] MEDS: HYDROcodone/acetaminophen (*CRX) 7.5-325 MG TABLET 1 TAB PO ×2 (09:43→21:12)
[2022-09-11 12:14] LABS: Glucose Point of Care 213 mg/dl (65-105)
[2022-09-11] MEDS: INSULIN ASPART (*BKC) 100 UNITS/ML SUB-Q ×2 (12:16→17:30)
[2022-09-11] MEDS: POTASSIUM CHLORIDE 20 MEQ PACKET (FOR LIQUID) 40 MEQ PO (14:21)
[2022-09-11 17:29] LABS: Glucose Point of Care 182 mg/dl (65-105)
[2022-09-11] MEDS: SPIRONOLACTONE 25 MG TABLET PO (17:30)
[2022-09-11] MEDS: FUROSEMIDE 40 MG TABLET PO (17:30)
[2022-09-11 20:56] LABS: Glucose Point of Care 164 mg/dl (65-105)
[2022-09-11] MEDS: SACUBITRIL/VALSARTAN 49-51 MG TABLET 1 TABLET PO (21:12)
[2022-09-11] MEDS: rOPINIRole HCL 0.25 MG TABLET PO (21:12)
[2022-09-11] MEDS: carvediloL 25 MG TABLET PO (21:13)
[2022-09-12] VITALS (11 sets, daily range): BP systolic 110–116; BP diastolic 61–84; PULSE 60–93; RESP 16–18; TEMP 36.4–37.2; O2SAT 92–95
[2022-09-12] MEDS: HEPARIN SODIUM 5,000 UNITS/ML VIAL 5000 UNITS SUB-Q ×3 (05:40→21:11)
[2022-09-12] MEDS: oxyCODONE HCL (*CRX) 5 MG TAB IR 10 MG PO ×4 (05:41→23:26)
[2022-09-12] MEDS: LEVOTHYROXINE SODIUM 25 MCG TABLET PO (05:41)
[2022-09-12] MEDS: LEVOTHYROXINE SODIUM 112 MCG TABLET PO (05:41)
[2022-09-12 05:50] LABS: Hematocrit 34.9 % (37.0-47.0); Hemoglobin 10.5 g/dL (12.0-15.0); Mean Corpuscular HGB Conc 30.1 g/dl (32-36); Mean Corpuscular Hemoglobin 28.8 pg (26-34); Mean Corpuscular Volume 95.6 fl (80-100); Mean Platelet Volume 10.2 fl (7.4-10.4); Platelet Count Result 293 k/mm3 (150-375); Red Blood Count 3.65 M/mm3 (4.2-5.4); Red Cell Distribution Width 16.7 % (11.5-14.5); White Blood Count 6.8 K/mm3 (4.5-10.0)
[2022-09-12 06:00] LABS: Anion Gap 2 mmol/L (8-16); Blood Urea Nitrogen 22 mg/dL (7-17); Carbon Dioxide 38 mmol/L (22-30); Chloride 98 mmol/L (98-107); Estimated CRCL calculation 102 ml/min; Estimated Glomerular Filt Rate > 60; Glucose 108 mg/dL (65-110); Sodium 138 mmol/L (137-145)
[2022-09-12 08:24] LABS: Glucose Point of Care 118 mg/dl (65-105)
[2022-09-12] MEDS: INSULIN GLARGINE (*BKC) 100 UNITS/ML 30 UNITS SUB-Q (08:52)
[2022-09-12] MEDS: HYDROcodone/acetaminophen (*CRX) 7.5-325 MG TABLET 1 TAB PO ×2 (08:54→15:04)
[2022-09-12] MEDS: CYCLOBENZAPRINE HCL 5 MG TABLET PO ×2 (08:54→21:11)
[2022-09-12] MEDS: PREGABALIN (*CRX) 75 MG CAPSULE PO ×2 (08:55→21:13)
[2022-09-12] MEDS: carvediloL 25 MG TABLET PO ×2 (08:55→21:11)
[2022-09-12] MEDS: metFORMIN HCL XR 500 MG TAB.SR.24H 1000 MG PO ×2 (08:55→18:40)
[2022-09-12] MEDS: TERBINAFINE HCL 250 MG TABLET PO (08:56)
[2022-09-12] MEDS: ATORVASTATIN 20 MG TABLET PO (08:56)
[2022-09-12] MEDS: FUROSEMIDE 40 MG TABLET PO ×2 (08:56→18:40)
[2022-09-12] MEDS: PANTOPRAZOLE 40 MG TABLET PO ×2 (08:56→18:40)
[2022-09-12] MEDS: SACUBITRIL/VALSARTAN 49-51 MG TABLET 1 TABLET PO ×2 (08:56→21:11)
[2022-09-12] MEDS: ASPIRIN 81 MG ENTERIC TABLET PO (08:56)
[2022-09-12] MEDS: DULoxetine HCL 30 MG CAPSULE.DR 60 MG PO (08:56)
[2022-09-12] MEDS: EMPAGLIFLOZIN 25 MG TABLET BY MOUTH (08:56)
[2022-09-12] MEDS: SPIRONOLACTONE 25 MG TABLET PO ×2 (08:56→18:41)
--- NOTE | 2022-09-12 10:47 | PM.IMPN ---
Progress Note: A&P Assessment and Plan (1) Sepsis: Code(s): A41.9 - Sepsis, unspecified organism Status: Acute Assessment and Plan: ?patient meets SIRS criteria with leukocytosis, tachycardia, tachypnea, source of infection ?source of infection appears to be pneumonia ?patient also is hypotensive the blood pressure in the 70s and 80s systolic ?IV fluids Stopped ?LR bolus x2 given 09/03/2022 ?IV antibiotics on board ?blood cultures no growth to date ?sputum culture ordered, not collected ?chest x-ray shows pneumonia versus pulmonary edema ?repeat chest xray 09/05/22 revealed bilateral pneumonia Repeat chest x-ray 09/07/2022 reflecting improving pneumonia. resolved at this time and patient is stable Patient waiting on acceptance into rehab Continue to monitor (2) Pneumonia due to COVID-19 virus: Code(s): U07.1 - COVID-19; J12.82 - Pneumonia due to coronavirus disease 2019 Status: Acute Assessment and Plan: ?chest x-ray (09/01/22) shows elevation the right hemidiaphragm upon admission ?chest x-ray from 09/05/2022 showed extensive bilateral consolidation chest x-ray 09/07/22 showed improving pneumonia ?CTA shows no PE however does show lower lung and dependent prominent atelectasis and hepatic lobe mass ?supplemental oxygen currently 1 L, wean as tolerated ?Remdesivir and dexamethasone course completed on 09/07/2022 ?sputum culture not collected ?blood cultures no growth - final ?Deescalate antibiotics, stop IV vancomycin, cefepime, azithromycin convert to p.o. azithromycin and cefdinir ?white blood cell count trending down at 5.1 today ?trend labs ?positive for COVID on 09/01/2022 ?Cornet and IS Therapy ?Obtain CRP 6.1, ESR 95, and procal >100.0 ?MRSA swab negative Antibiotic course completed Patient weened off of oxygen (3) Acute respiratory distress syndrome (ARDS) due to 2019 novel coronavirus: Code(s): U07.1 - COVID-19; J80 - Acute respiratory distress syndrome Status: Acute Assessment and Plan: Patient on 1 L of oxygen in setting at 94.? Patient has not been able to maintain room air without your saturations falling in the 80s. IV Lasix 40 mg b.i.d. deescalated to 40mg BID PO Shortness of breath improving on oxygen.? Patient states that she only gets short of breath when oxygen is removed.? Cough improving ?related to COVID-19 ?continue Trend respiratory status ?COVID-19 medications completed Patient off of oxygen and satting in the 90s shortness of breath improved. Patient no longer quarantine (4) Congestive heart failure: Code(s): I50.9 - Heart failure, unspecified Status: Acute Assessment and Plan: ?appears to be a 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 with exacerbation ?exacerbation noted by findings on chest x-ray, supplemental oxygen need, shortness of breath ?Entresto, carvedilol can be restarted as hypotension seems to be resolved ?chest x-ray does show possible pulmonary edema 09/03/22 ?Repeat chest xray extensive airspace consolidation 09/05/22 ?Home furosemide restarted - 40mg BID PO ?continue aspirin ?Echo severe hypokinesis to akinesis of the proximal and mid inferior septal and inferior lateral segments, EF 35% with diastolic dysfunction ?trend urine output ?daily weights ?BNP 780 (5) Benign essential HTN: Code(s): I10 - Essential (primary) hypertension Status: Acute Assessment and Plan: Current BP? 124/78 Restart home Entresto, spironolactone, furosemide, carvedilol as hypotension appears to be resolved Trend Blood pressure Adjust therapy as indicated (6) Iron deficiency anemia: Code(s): D50.9 - Iron deficiency anemia, unspecified Status: Acute Assessment and Plan: ?H&H currently 10.6/34.9 ?anemia labs indicate iron deficiency with iron 12, TIBC 265, % saturation 5, ferritin 102, B12 771, folate 12.6, transferrin 187 ?
[2022-09-12] MEDS: FERROUS SULFATE 324 MG TABLET PO ×2 (10:51→18:40)
[2022-09-12] MEDS: POTASSIUM CHLORIDE 20 MEQ TABLET 40 MEQ PO (10:51)
--- NOTE | 2022-09-12 11:20 | PCOTNOTE ---
Attempted to see patient for OT, patient declined at this time. Patient reports her just arrived and she wanted to visit as patient has been on covid isolation until today. Patient requested therapist come back and try later to see. Will continue OT per plan of care.
[2022-09-12 11:55] LABS: Glucose Point of Care 236 mg/dl (65-105)
[2022-09-12 12:10] LABS: Potassium 3.4 mmol/L (3.4-5.0)
[2022-09-12] MEDS: INSULIN ASPART (*BKC) 100 UNITS/ML SUB-Q (12:39)
[2022-09-12 16:54] LABS: Glucose Point of Care 116 mg/dl (65-105)
[2022-09-12] MEDS: rOPINIRole HCL 0.25 MG TABLET PO (21:11)
[2022-09-12 21:16] LABS: Glucose Point of Care 142 mg/dl (65-105)
[2022-09-13] VITALS: PULSE 78
[2022-09-13 04:00] VITALS: PULSE 61
[2022-09-13] MEDS: HEPARIN SODIUM 5,000 UNITS/ML VIAL 5000 UNITS SUB-Q ×2 (05:28→14:20)
[2022-09-13] MEDS: oxyCODONE HCL (*CRX) 5 MG TAB IR 10 MG PO ×2 (05:29→12:16)
[2022-09-13] MEDS: LEVOTHYROXINE SODIUM 25 MCG TABLET PO (05:29)
[2022-09-13] MEDS: LEVOTHYROXINE SODIUM 112 MCG TABLET PO (05:30)
[2022-09-13 05:34] VITALS: BP 123/67; PULSE 56; RESP 16; TEMP 37.2; O2SAT 92
[2022-09-13 06:07] LABS: Hematocrit 35.9 % (37.0-47.0); Hemoglobin 10.8 g/dL (12.0-15.0); Mean Corpuscular HGB Conc 30.1 g/dl (32-36); Mean Corpuscular Hemoglobin 28.2 pg (26-34); Mean Corpuscular Volume 93.7 fl (80-100); Mean Platelet Volume 10.3 fl (7.4-10.4); Platelet Count Result 280 k/mm3 (150-375); Red Blood Count 3.83 M/mm3 (4.2-5.4); Red Cell Distribution Width 16.6 % (11.5-14.5); White Blood Count 6.4 K/mm3 (4.5-10.0)
[2022-09-13 06:36] LABS: Anion Gap 6 mmol/L (8-16); Blood Urea Nitrogen 15 mg/dL (7-17); Calcium 7.7 mg/dL (8.4-10.2); Carbon Dioxide 34 mmol/L (22-30); Chloride 98 mmol/L (98-107); Estimated CRCL calculation 121 ml/min; Estimated Glomerular Filt Rate > 60; Glucose 165 mg/dL (65-110); Magnesium 1.9 mg/dL (1.6-2.3); Potassium 2.6 mmol/L (3.4-5.0); Sodium 138 mmol/L (137-145)
[2022-09-13] MEDS: POTASSIUM CHLORIDE 20 MEQ TABLET 80 MEQ PO (06:49)
[2022-09-13 07:49] LABS: Glucose Point of Care 217 mg/dl (65-105)
[2022-09-13 08:00] VITALS: PULSE 77
[2022-09-13] MEDS: INSULIN ASPART (*BKC) 100 UNITS/ML SUB-Q ×2 (09:36→12:20)
[2022-09-13] MEDS: metFORMIN HCL XR 500 MG TAB.SR.24H 1000 MG PO (09:38)
[2022-09-13] MEDS: ATORVASTATIN 20 MG TABLET PO (09:39)
[2022-09-13] MEDS: ASPIRIN 81 MG ENTERIC TABLET PO (09:39)
[2022-09-13] MEDS: DULoxetine HCL 30 MG CAPSULE.DR 60 MG PO (09:39)
[2022-09-13] MEDS: EMPAGLIFLOZIN 25 MG TABLET BY MOUTH (09:39)
[2022-09-13] MEDS: PREGABALIN (*CRX) 75 MG CAPSULE PO (09:40)
[2022-09-13] MEDS: SACUBITRIL/VALSARTAN 49-51 MG TABLET 1 TABLET PO (09:40)
[2022-09-13] MEDS: FAMOTIDINE 20 MG TABLET PO (09:40)
[2022-09-13] MEDS: FUROSEMIDE 40 MG TABLET PO (09:40)
[2022-09-13] MEDS: PANTOPRAZOLE 40 MG TABLET PO (09:40)
[2022-09-13] MEDS: INSULIN GLARGINE (*BKC) 100 UNITS/ML 30 UNITS SUB-Q (09:55)
[2022-09-13] MEDS: TERBINAFINE HCL 250 MG TABLET PO (09:55)
[2022-09-13] MEDS: FERROUS SULFATE 324 MG TABLET PO (09:55)
[2022-09-13] MEDS: SPIRONOLACTONE 25 MG TABLET PO (09:55)
[2022-09-13 09:57] VITALS: PULSE 84
[2022-09-13] MEDS: carvediloL 25 MG TABLET PO (09:57)
[2022-09-13 12:00] VITALS: PULSE 84
--- NOTE | 2022-09-13 12:08 | P.DS_ITS ---
DS: Admitting Diagnosis Discharge Date 09/13/22 Admitting Diagnosis Shortness of breath, COVID-19, hypokalemia DS: Discharge Diagnosis Discharge Diagnosis (1) Sepsis: Code(s): A41.9 - Sepsis, unspecified organism Status: Acute Assessment and Plan: * ?patient meets SIRS criteria with leukocytosis, tachycardia, tachypnea, source of infection * ?source of infection appears to be pneumonia * ?patient also is hypotensive the blood pressure in the 70s and 80s systolic * ?IV fluids Stopped * ?LR bolus x2 given 09/03/2022 * ?IV antibiotics on board * ?blood cultures no growth to date * ?sputum culture ordered, not collected * ?chest x-ray shows pneumonia versus pulmonary edema * ?repeat chest xray 09/05/22 revealed bilateral pneumonia * Repeat chest x-ray 09/07/2022 reflecting improving pneumonia. * resolved at this time and patient is stable * Patient waiting on acceptance into rehab * Continue to monitor (2) Pneumonia due to COVID-19 virus: Code(s): U07.1 - COVID-19; J12.82 - Pneumonia due to coronavirus disease 2019 Status: Acute Assessment and Plan: * ?chest x-ray (09/01/22) shows elevation the right hemidiaphragm upon admission * ?chest x-ray from 09/05/2022 showed extensive bilateral consolidation * chest x-ray 09/07/22 showed improving pneumonia * ?CTA shows no PE however does show lower lung and dependent prominent atelectasis and hepatic lobe mass * ?supplemental oxygen currently 1 L, wean as tolerated * ?Remdesivir and dexamethasone course completed on 09/07/2022 * ?sputum culture not collected * ?blood cultures no growth - final * ?Deescalate antibiotics, stop IV vancomycin, cefepime, azithromycin convert to p.o. azithromycin and cefdinir * ?white blood cell count trending down at 5.1 today * ?trend labs * ?positive for COVID on 09/01/2022 * ?Cornet and IS Therapy * ?Obtain CRP 6.1, ESR 95, and procal >100.0 * ?MRSA swab negative * Antibiotic course completed * Patient weened off of oxygen (3) Acute respiratory distress syndrome (ARDS) due to 2019 novel coronavirus: Code(s): U07.1 - COVID-19; J80 - Acute respiratory distress syndrome Status: Acute Assessment and Plan: * Patient on 1 L of oxygen in setting at 94.? Patient has not been able to maintain room air without your saturations falling in the 80s. * IV Lasix 40 mg b.i.d. deescalated to 40mg BID PO * Shortness of breath improving on oxygen.? Patient states that she only gets short of breath when oxygen is removed.? * Cough improving * ?related to COVID-19 * ?continue Trend respiratory status * ?COVID-19 medications completed * Patient off of oxygen and satting in the 90s * shortness of breath improved. * Patient no longer quarantine (4) Congestive heart failure: Code(s): I50.9 - Heart failure, unspecified Status: Acute Assessment and Plan: * ?appears to be a 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 with exacerbation * ?exacerbation noted by findings on chest x-ray, supplemental oxygen need, shortness of breath * ?Entresto, carvedilol can be restarted as hypotension seems to be resolved * ?chest x-ray does show possible pulmonary edema 09/03/22 * ?Repeat chest xray extensive airspace consolidation 09/05/22 * ?Home furosemide restarted - 40mg BID PO * ?continue aspirin * ?Echo severe hypokinesis to akinesis of the proximal and mid inferior septal and inferior lateral segments, EF 35% with diastolic dysfunction * ?trend urine output * ?daily weights * ?BNP 780 (5) Benign essential HTN: Code(s): I10 - Essential
[2022-09-13 12:12] LABS: Potassium 3.3 mmol/L (3.4-5.0)
[2022-09-13 12:45] LABS: Glucose Point of Care 182 mg/dl (65-105)
== END 2022-09-13 15:00 | disposition home health service (06) | DRG 871 ==
LOC: ANHED 22:13 → ANH2MED 23:42
PROVIDERS: Internal Medicine; Internal Medicine Critical Care Medicine; Nurse Practitioner; Admitting Provider Internal Medicine; Emergency Provider Family Medicine; PCP Internal Medicine; Visit Provider Student in an Organized Health Care Education/Training Program
DX: A41.89 Other specified sepsis (principal); J12.82 Pneumonia due to coronavirus disease 2019; U07.1 COVID-19; J80 Acute respiratory distress syndrome; M79.7 Fibromyalgia; E78.5 Hyperlipidemia, unspecified; I95.9 Hypotension, unspecified; I11.0 Hypertensive heart disease with heart failure; I50.9 Heart failure, unspecified; D50.9 Iron deficiency anemia, unspecified; E11.42 Type 2 diabetes mellitus with diabetic polyneuropathy; E87.6 Hypokalemia; Z23 Encounter for immunization; Z88.2 Allergy status to sulfonamides; Z79.4 Long term (current) use of insulin; Z79.82 Long term (current) use of aspirin; Z79.899 Other long term (current) drug therapy; Z79.84 Long term (current) use of oral hypoglycemic drugs; Z87.891 Personal history of nicotine dependence; Z83.3 Family history of diabetes mellitus; Z80.3 Family history of malignant neoplasm of breast; Z82.5 Family history of asthma and other chronic lower respiratory diseases
CPT/HCPCS: 36415; 71045; 71275; 80048; 80053; 80061; 80202; 82607; 82728; 82746; 82948; 83036; 83540; 83550; 83735; 83880; 84132; 84145; 84439; 84443; 84460; 84466; 84480; 84484; 85025; 85027; 85610; 85652; 86140; 87040; 87081; 87636; 90471; 90686; 93005; 93306; 94667; 96361; 96365; 96366; 96367; 96374; 96375; 97110; 97161; 97166; 97530; 97535; 99285; A9270; G0008; G0378; J0248; J0456; J0692; J1100; J1170; J1644; J1815; J1940; J2060; J2270; J2405; J3370; J3475; J3480; J7030; J7040; J7050; J7120; Q9967

== ENCOUNTER 2023-11-20 11:50 | Inpatient (IN) | payer OTHER, MEDICARE, SELFPAY ==
[2023-11-20 12:00] VITALS: O2SAT 95
[2023-11-20 13:39] VITALS: BP 120/72; PULSE 53; RESP 16; TEMP 36.6; O2SAT 95
[2023-11-20 13:49] VITALS: PULSE 53; RESP 16; O2SAT 95
--- NOTE | 2023-11-20 14:22 | PC.NURSE ---
Pt arrives to the floor from [facility]. She is A/O x3, VSS.Pt uses a wheeled walker for mobility.
[2023-11-20 14:27] VITALS: BMI 24.0
[2023-11-20 16:35] VITALS: BP 119/77; PULSE 103; RESP 16; TEMP 36.3; O2SAT 96
[2023-11-20 17:09] LABS: Glucose Point of Care 209 mg/dl (65-105)
[2023-11-20] MEDS: INSULIN HUMAN LISPRO (*BKC) 1,000 UNITS/10 ML VIAL 10 UNITS SUB-Q (18:17)
[2023-11-20] MEDS: oxyCODONE HCL (*CRX) 5 MG TAB IR 15 MG PO (18:18)
[2023-11-20] MEDS: INSULIN HUMAN LISPRO (*BKC) 1,000 UNITS/10 ML VIAL SUB-Q (18:18)
[2023-11-20] MEDS: MINERAL OIL/PETROLATUM OPHTH OINT 3.5 GM (EYE LUBRICANT) 1 APPLIC EACH EYE (21:05)
[2023-11-20] MEDS: ACETAMINOPHEN 500 MG TABLET PO (21:05)
[2023-11-20] MEDS: SACUBITRIL/VALSARTAN 49-51 MG TABLET 2 TABLET PO (21:05)
[2023-11-20] MEDS: PREGABALIN (*CRX) 25 MG CAPSULE 75 MG PO (21:06)
[2023-11-20] MEDS: DOCUSATE SODIUM 100 MG CAPSULE PO (21:07)
[2023-11-20] MEDS: CYCLOBENZAPRINE HCL 5 MG TABLET PO (21:07)
[2023-11-20] MEDS: rOPINIRole HCL 0.25 MG TABLET PO (21:07)
[2023-11-20] MEDS: APIXABAN 2.5 MG TABLET 5 MG BY MOUTH (21:07)
[2023-11-20 21:19] LABS: Glucose Point of Care 326 mg/dl (65-105)
[2023-11-20] MEDS: INSULIN GLARGINE (*BKC) 1,000 UNITS/10 ML VIAL 35 UNITS SUB-Q (21:19)
[2023-11-21] VITALS: BP 102/87; PULSE 87; RESP 20; TEMP 36.5; O2SAT 96
[2023-11-21] MEDS: oxyCODONE HCL (*CRX) 5 MG TAB IR 15 MG PO ×4 (00:48→20:52)
[2023-11-21] MEDS: ACETAMINOPHEN 500 MG TABLET PO ×2 (05:02→17:25)
[2023-11-21] MEDS: CYCLOBENZAPRINE HCL 5 MG TABLET PO ×2 (05:04→17:25)
[2023-11-21 05:30] VITALS: O2SAT 98
--- NOTE | 2023-11-21 07:37 | PM.IMHP ---
H&P: HPI History of Present Illness Date/Time: 11/21/23 07:37 Chief Complaint: Swing Bed/Rehab Narrative: This is a 58-year-old female patient with past medical history of cardiomyopathy, hypertension, congestive heart failure, chronic hypoxemic respiratory failure, type 2 diabetes, atrial fibrillation, spinal spondylosis, fibromyalgia, restless legs syndrome, spinal fractures, hypothyroidism and obstructive sleep apnea who was recently discharged from [facility] status post kyphoplasty T4, T5 and T6. Patient had been admitted originally to [facility] due to severe upper back pain after patient experienced COVID with a lot of coughing she had acute compression fractures T5 that were worsened by such coughing. Patient was eventually transferred to [place] where she underwent kyphoplasty with some improvement in pain. She remained at [place] for over a week recently able to be discharged but not yet strong enough to return home to independent living. Patient is on supplemental oxygen during the day and bleed in to CPAP at night. She does have home oxygen. She reports that they have weaned her off oxygen but then she gets hypoxic and has to go back on repeatedly so now she is just wearing it continuously. Patient also has chronic pain disorder and fibromyalgia she is on numerous pain medications to include fentanyl patch, Tylenol, oxycodone p.r.n., Cymbalta and Lyrica. Today patient is awake alert oriented ambulating the oliver with physical therapy, no significant respiratory distress conversational on home oxygen setting. She reports that her pain is better controlled than usual she states that the kyphoplasty did help. At this time patient is here for strengthening and rehabilitation suspected short stay before returning home. Review of Systems Review of Systems: All systems reviewed & are unremarkable except as noted in HPI and below PMFSH Past Medical History Medical History Adult hypothyroidism Anxiety Arthritis Atrial fibrillation Bronchitis Cervical spondylosis with myelopathy and radiculopathy Chronic back pain Chronic hypoxemic respiratory failure Chronic pain disorder DDD (degenerative disc disease) Depression Diabetes mellitus Diabetes type 2, uncontrolled Fibromyalgia HTN (hypertension) Hyperlipidemia Major depressive disorder, recurrent, moderate Migraine Muscle spasm Ovarian cyst Peripheral neuropathy Pneumonia Sleep apnea in adult Thyroid ca Type 2 diabetes mellitus without complications UTI (urinary tract infection) Surgical History Surgical History H/O thyroidectomy History of hysterectomy History of spinal fusion S/P cervical spinal fusion Family History Family History Grandparent Diabetes mellitus, Onset Age: 200 Family history of lupus erythematosus, Onset Age: 200 Mother Family history of malignant neoplasm of breast in first degree relative Hypertension Cerebrovascular accident Father Family history of coronary artery disease, Onset Age: 40 Hypertension Chronic obstructive pulmonary disease Other Family history of malignant neoplasm of male breast Social History Social History Social History: Smoking packs per day: 3 Smoking cigarettes per day: 60.0 Years smoked: 7 Smoking pack-years: 21.00 Smoking status: Never smoker Tobacco type: cigarettes Second hand tobacco smoke exposure: No Smoking end date: 09/18/86 Alcohol intake: never Substance use: never Substance use type: does not use Do You Feel Safe in your Home?: Yes Lack of Transportation: No Lack of Food: Never True Current Housing: I Have Housing Concerned About Future Housing: No Difficulty Paying Gas/Electric Bills: YES Difficulty Payin
[2023-11-21 07:57] LABS: Glucose Point of Care 194 mg/dl (65-105)
[2023-11-21 08:00] VITALS: BP 103/76; PULSE 60; RESP 16; TEMP 36.1; O2SAT 98
[2023-11-21] MEDS: INSULIN HUMAN LISPRO (*BKC) 1,000 UNITS/10 ML VIAL 10 UNITS SUB-Q ×3 (08:11→17:24)
[2023-11-21] MEDS: PANTOPRAZOLE SOD SESQUIHYDRATE 20 MG TAB PO (09:00)
[2023-11-21] MEDS: FUROSEMIDE 20 MG TABLET PO (09:00)
[2023-11-21] MEDS: PREGABALIN (*CRX) 25 MG CAPSULE 75 MG PO ×2 (09:00→20:48)
[2023-11-21] MEDS: DOCUSATE SODIUM 100 MG CAPSULE PO ×2 (09:01→20:48)
[2023-11-21] MEDS: DULoxetine HCL 30 MG CAPSULE.DR 60 MG PO (09:01)
[2023-11-21] MEDS: POTASSIUM CHLORIDE 20 MEQ ER TABLET PO (09:02)
[2023-11-21] MEDS: ATORVASTATIN 10 MG TABLET 20 MG PO (09:02)
[2023-11-21] MEDS: SACUBITRIL/VALSARTAN 97-103 MG TABLET 1 TAB PO ×2 (09:02→21:03)
[2023-11-21] MEDS: APIXABAN 2.5 MG TABLET 5 MG BY MOUTH ×2 (09:03→20:48)
[2023-11-21] MEDS: ASPIRIN 81 MG ENTERIC TABLET PO (09:03)
[2023-11-21] MEDS: amLODIPine BESYLATE 5 MG TABLET PO (09:03)
[2023-11-21] MEDS: CALCIUM/VITAMIN D 250 MG TABLET 2 TABLET PO ×2 (09:04→17:10)
[2023-11-21 11:48] LABS: Glucose Point of Care 234 mg/dl (65-105)
[2023-11-21] MEDS: INSULIN HUMAN LISPRO (*BKC) 1,000 UNITS/10 ML VIAL SUB-Q (11:57)
[2023-11-21 16:00] VITALS: BP 125/59; PULSE 92; RESP 18; TEMP 36.2; O2SAT 97
[2023-11-21 17:03] LABS: Glucose Point of Care 160 mg/dl (65-105)
[2023-11-21] MEDS: fentaNYL (*CRX) 75 MCG PATCH TRANSDERM (20:44)
[2023-11-21] MEDS: rOPINIRole HCL 0.25 MG TABLET PO (20:48)
[2023-11-21] MEDS: MINERAL OIL/PETROLATUM OPHTH OINT 3.5 GM (EYE LUBRICANT) 1 APPLIC EACH EYE (20:48)
[2023-11-21] MEDS: INSULIN GLARGINE (*BKC) 1,000 UNITS/10 ML VIAL 35 UNITS SUB-Q (20:48)
[2023-11-21 21:10] LABS: Glucose Point of Care 278 mg/dl (65-105)
[2023-11-22] VITALS: BP 93/72; PULSE 64; RESP 15; TEMP 36.3; O2SAT 97
[2023-11-22] MEDS: oxyCODONE HCL (*CRX) 5 MG TAB IR 15 MG PO ×3 (02:25→16:30)
[2023-11-22 05:30] VITALS: O2SAT 97
[2023-11-22 07:56] LABS: Glucose Point of Care 170 mg/dl (65-105)
[2023-11-22 08:00] VITALS: BP 103/61; PULSE 70; RESP 16; TEMP 35.9; O2SAT 96
[2023-11-22] MEDS: FUROSEMIDE 20 MG TABLET PO (08:30)
[2023-11-22] MEDS: INSULIN HUMAN LISPRO (*BKC) 1,000 UNITS/10 ML VIAL 10 UNITS SUB-Q ×3 (08:41→17:19)
[2023-11-22] MEDS: ATORVASTATIN 10 MG TABLET 20 MG PO (09:10)
[2023-11-22] MEDS: DULoxetine HCL 30 MG CAPSULE.DR 60 MG PO (09:10)
[2023-11-22] MEDS: SACUBITRIL/VALSARTAN 97-103 MG TABLET 1 TAB PO ×2 (09:10→21:06)
[2023-11-22] MEDS: PREGABALIN (*CRX) 25 MG CAPSULE 75 MG PO ×2 (09:10→21:06)
[2023-11-22] MEDS: POTASSIUM CHLORIDE 20 MEQ ER TABLET PO (09:11)
[2023-11-22] MEDS: ASPIRIN 81 MG ENTERIC TABLET PO (09:12)
[2023-11-22] MEDS: amLODIPine BESYLATE 5 MG TABLET PO (09:12)
[2023-11-22] MEDS: PANTOPRAZOLE SOD SESQUIHYDRATE 20 MG TAB PO (09:12)
[2023-11-22] MEDS: DOCUSATE SODIUM 100 MG CAPSULE PO ×2 (09:13→21:06)
[2023-11-22] MEDS: APIXABAN 2.5 MG TABLET 5 MG BY MOUTH ×2 (09:13→21:06)
[2023-11-22] MEDS: CYCLOBENZAPRINE HCL 5 MG TABLET PO (09:14)
[2023-11-22] MEDS: CALCIUM/VITAMIN D 250 MG TABLET 2 TABLET PO ×2 (09:17→16:32)
[2023-11-22 11:41] LABS: Glucose Point of Care 252 mg/dl (65-105)
[2023-11-22] MEDS: INSULIN HUMAN LISPRO (*BKC) 1,000 UNITS/10 ML VIAL SUB-Q (12:24)
[2023-11-22] MEDS: ACETAMINOPHEN 500 MG TABLET PO (15:09)
--- NOTE | 2023-11-22 15:18 | PHAR ---
SPOKE W/RPH AT [facility] WHERE PT TRANSFERRED FROM. [facility] CONFIRMED THAT PT WAS ON FENTANYL 75MCG PATCH WHEN SHE ARRIVED AT REHAB FROM [facility], WELL CONFIRMED OXYCODONE 15MG Q6H PRN FOR BREAKTHROUGH DOSE, AND THAT THE DOSE OF FENTANYL PATCH HAD BEEN TITRATED AT [facility] UP TO 75MCG. H/O WEDGE COMPRESSION FRACTURE OF UNSPECIFIED THORACIC VERTEBRAE AND T4-T5-T6 KYPHOPLASTY.
[2023-11-22 15:45] VITALS: BP 111/77; PULSE 55; RESP 16; TEMP 36.3; O2SAT 94
--- NOTE | 2023-11-22 15:53 | P.PNCROSS_ITS ---
Event Note Event Note Event Note: This provider assumes care from David Goodwin NP. I met with the patient this mo rning to introduce myself and establish a baseline assessment. Patient has been working with therapy and states this is going well. She has no concerns at this other than not having a bowel movement for a few days. She is on high doses of narcotics and her metformin is currently being held which she says usually keeps her bowel movements regular. Will review bowel regimen. General: well appearing, well developed, well nourished, appears stated age. She is wearing her back brace HEENT: normocephalic, atraumatic. Mucous membranes moist. EOMI, PERRLA, bilateral sclera anicteric, no conjunctival injection. Neck supple without JVD, lymphadenopathy, or bruit. Respiratory: clear to auscultation bilaterally. No rales/rhonic/wheezes. Cardiovascular: Regular rate and rhythm, normal S1-S2 upon auscultation. No murmurs, rubs, or clicks. PMI is nondisplaced, capillary re-fill less than 3 second. Abdomen: Soft, round, no pulsatile masses, non-distended, and non-tender. No rebound, no guarding. No CVA tenderness, no hepatosplenomegaly. Bowel sounds hypoactive to all four quadrants. No high pitch or tinkling sounds, resonant to percussion. Extremities: No cyanosis, clubbing, or edema present. Pulses are palpable 2/2. Active ROM to all four extremities. Neuro: Alert and orientated x 4. PERRLA. Cranial nerves 2-12 intact without focal deficit. Skin: Warm, dry, and intact, without rash, erythema, or lesion. Lines: Incisions: Psych: pleasant, cooperative, normal speech, normal affect, no hallucinations, no dysarthria
--- NOTE | 2023-11-22 18:06 | PC.NURSE ---
Daughter brought in dinner from [employer] patient is eating well.
--- NOTE | 2023-11-22 18:10 | PC.NURSE ---
blood sugar taken at 1630 did not upload at this time. Her blood sugar was 118.
[2023-11-22 18:13] LABS: Glucose Point of Care 118 mg/dl (65-105)
[2023-11-22 20:00] VITALS: PULSE 89; RESP 20; O2SAT 95
[2023-11-22 20:16] LABS: Glucose Point of Care 165 mg/dl (65-105)
--- NOTE | 2023-11-22 20:20 | PC.NURSE ---
Pt ambulated steadily c gait and walkerto Bathroom, back to bed. Pt wanting HS snack. Snack given and noted BS of 165.
[2023-11-22] MEDS: INSULIN GLARGINE (*BKC) 1,000 UNITS/10 ML VIAL 35 UNITS SUB-Q (21:04)
[2023-11-22] MEDS: MINERAL OIL/PETROLATUM OPHTH OINT 3.5 GM (EYE LUBRICANT) 1 APPLIC EACH EYE (21:05)
[2023-11-22] MEDS: rOPINIRole HCL 0.25 MG TABLET PO (21:06)
[2023-11-22] MEDS: ONDANSETRON HCL ODT 4 MG TABLET PO (22:53)
--- NOTE | 2023-11-22 22:54 | PC.NURSE ---
Pt up ambulated to BR c stand by assist walker and gait belt. Pt c/o slight nausea, Zofran given as per order, ice chips at bedside. Pt watching TV and call vargas at side.
[2023-11-22 23:49] VITALS: BP 114/72; PULSE 70; RESP 20; TEMP 36.6; O2SAT 95
[2023-11-23] MEDS: oxyCODONE HCL (*CRX) 5 MG TAB IR 15 MG PO ×3 (00:49→17:12)
[2023-11-23 05:30] VITALS: O2SAT 92
[2023-11-23 07:50] VITALS: BP 107/59; PULSE 80; RESP 16; TEMP 36.2; O2SAT 99
[2023-11-23] MEDS: DULoxetine HCL 30 MG CAPSULE.DR 60 MG PO (08:54)
[2023-11-23] MEDS: INSULIN HUMAN LISPRO (*BKC) 1,000 UNITS/10 ML VIAL 10 UNITS SUB-Q ×3 (08:54→17:19)
[2023-11-23] MEDS: BISACODYL 5 MG TABLET EC PO (08:55)
[2023-11-23] MEDS: PREGABALIN (*CRX) 25 MG CAPSULE 75 MG PO ×2 (08:55→21:03)
[2023-11-23] MEDS: ATORVASTATIN 10 MG TABLET 20 MG PO (08:55)
[2023-11-23] MEDS: ASPIRIN 81 MG ENTERIC TABLET PO (08:55)
[2023-11-23] MEDS: amLODIPine BESYLATE 5 MG TABLET PO (08:55)
[2023-11-23] MEDS: PANTOPRAZOLE SOD SESQUIHYDRATE 20 MG TAB PO (08:55)
[2023-11-23] MEDS: FUROSEMIDE 20 MG TABLET PO (08:55)
[2023-11-23] MEDS: POTASSIUM CHLORIDE 20 MEQ ER TABLET PO (08:55)
[2023-11-23] MEDS: APIXABAN 2.5 MG TABLET 5 MG BY MOUTH ×2 (08:55→21:03)
[2023-11-23] MEDS: SACUBITRIL/VALSARTAN 97-103 MG TABLET 1 TAB PO ×2 (08:56→21:03)
[2023-11-23] MEDS: polyethylene glycoL 3350 17 GM POWD.PACK PO (08:56)
[2023-11-23] MEDS: DOCUSATE SODIUM 100 MG CAPSULE PO ×2 (08:56→21:03)
[2023-11-23] MEDS: CALCIUM/VITAMIN D 250 MG TABLET 2 TABLET PO ×2 (09:10→17:12)
[2023-11-23 10:52] VITALS: O2SAT 99
[2023-11-23 11:34] LABS: Glucose Point of Care 198 mg/dl (65-105)
[2023-11-23] MEDS: ACETAMINOPHEN 500 MG TABLET PO ×2 (12:20→21:04)
[2023-11-23 16:00] VITALS: BP 102/82; PULSE 91; RESP 18; TEMP 36.3; O2SAT 95
[2023-11-23 20:13] LABS: Glucose Point of Care 197 mg/dl (65-105)
[2023-11-23 20:13] LABS: Glucose Point of Care 186 mg/dl (65-105)
[2023-11-23] MEDS: INSULIN GLARGINE (*BKC) 1,000 UNITS/10 ML VIAL 35 UNITS SUB-Q (21:01)
[2023-11-23 21:02] LABS: Glucose Point of Care 259 mg/dl (65-105)
[2023-11-23] MEDS: rOPINIRole HCL 0.25 MG TABLET PO (21:03)
[2023-11-23] MEDS: CYCLOBENZAPRINE HCL 5 MG TABLET PO (21:03)
[2023-11-23] MEDS: MINERAL OIL/PETROLATUM OPHTH OINT 3.5 GM (EYE LUBRICANT) 1 APPLIC EACH EYE (21:04)
[2023-11-24] VITALS: BP 115/69; PULSE 69; RESP 18; TEMP 36.4; O2SAT 92
[2023-11-24] MEDS: oxyCODONE HCL (*CRX) 5 MG TAB IR 15 MG PO ×4 (04:19→23:24)
[2023-11-24 05:46] VITALS: O2SAT 94
[2023-11-24] MEDS: ONDANSETRON HCL ODT 4 MG TABLET PO (06:37)
[2023-11-24 08:00] VITALS: BP 105/63; PULSE 56; RESP 17; TEMP 36.1; O2SAT 96
[2023-11-24 08:19] LABS: Glucose Point of Care 180 mg/dl (65-105)
[2023-11-24] MEDS: polyethylene glycoL 3350 17 GM POWD.PACK PO (09:19)
[2023-11-24] MEDS: DULoxetine HCL 30 MG CAPSULE.DR 60 MG PO (09:20)
[2023-11-24] MEDS: DOCUSATE SODIUM 100 MG CAPSULE PO ×2 (09:20→20:33)
[2023-11-24] MEDS: POTASSIUM CHLORIDE 20 MEQ ER TABLET PO (09:20)
[2023-11-24] MEDS: FUROSEMIDE 20 MG TABLET PO (09:20)
[2023-11-24] MEDS: SACUBITRIL/VALSARTAN 97-103 MG TABLET 1 TAB PO ×2 (09:20→20:33)
[2023-11-24] MEDS: PREGABALIN (*CRX) 25 MG CAPSULE 75 MG PO ×2 (09:21→20:33)
[2023-11-24] MEDS: CALCIUM/VITAMIN D 250 MG TABLET 2 TABLET PO ×2 (09:21→17:24)
[2023-11-24] MEDS: ATORVASTATIN 10 MG TABLET 20 MG PO (09:21)
[2023-11-24] MEDS: ASPIRIN 81 MG ENTERIC TABLET PO (09:21)
[2023-11-24] MEDS: PANTOPRAZOLE SOD SESQUIHYDRATE 20 MG TAB PO (09:21)
[2023-11-24] MEDS: APIXABAN 2.5 MG TABLET 5 MG BY MOUTH ×2 (09:21→20:34)
[2023-11-24] MEDS: amLODIPine BESYLATE 5 MG TABLET PO (09:21)
[2023-11-24] MEDS: ACETAMINOPHEN 500 MG TABLET PO ×3 (09:22→20:33)
[2023-11-24] MEDS: BISACODYL 5 MG TABLET EC PO (09:22)
[2023-11-24] MEDS: INSULIN HUMAN LISPRO (*BKC) 1,000 UNITS/10 ML VIAL 10 UNITS SUB-Q ×3 (09:22→17:28)
[2023-11-24 12:08] LABS: Glucose Point of Care 321 mg/dl (65-105)
[2023-11-24] MEDS: INSULIN HUMAN LISPRO (*BKC) 1,000 UNITS/10 ML VIAL SUB-Q (12:22)
[2023-11-24 16:00] VITALS: BP 93/49; PULSE 76; RESP 20; TEMP 35.9; O2SAT 96
[2023-11-24 16:23] LABS: Glucose Point of Care 147 mg/dl (65-105)
[2023-11-24] MEDS: fentaNYL (*CRX) 75 MCG PATCH TRANSDERM (20:31)
[2023-11-24] MEDS: MINERAL OIL/PETROLATUM OPHTH OINT 3.5 GM (EYE LUBRICANT) 1 APPLIC EACH EYE (20:34)
[2023-11-24] MEDS: rOPINIRole HCL 0.25 MG TABLET PO (20:34)
[2023-11-24] MEDS: CYCLOBENZAPRINE HCL 5 MG TABLET PO (20:34)
[2023-11-24] MEDS: INSULIN GLARGINE (*BKC) 1,000 UNITS/10 ML VIAL 35 UNITS SUB-Q (20:34)
[2023-11-24 20:38] LABS: Glucose Point of Care 268 mg/dl (65-105)
[2023-11-25] VITALS: BP 112/73; PULSE 100; RESP 16; O2SAT 97
[2023-11-25] MEDS: ACETAMINOPHEN 500 MG TABLET PO ×2 (04:36→20:02)
[2023-11-25 05:47] VITALS: O2SAT 94
[2023-11-25 08:00] VITALS: BP 129/60; PULSE 88; RESP 17; TEMP 36.9; O2SAT 93
[2023-11-25] MEDS: INSULIN HUMAN LISPRO (*BKC) 1,000 UNITS/10 ML VIAL 10 UNITS SUB-Q ×3 (08:47→17:36)
[2023-11-25] MEDS: polyethylene glycoL 3350 17 GM POWD.PACK PO (08:47)
[2023-11-25] MEDS: DULoxetine HCL 30 MG CAPSULE.DR 60 MG PO (08:48)
[2023-11-25] MEDS: ASPIRIN 81 MG ENTERIC TABLET PO (08:49)
[2023-11-25] MEDS: POTASSIUM CHLORIDE 20 MEQ ER TABLET PO (08:49)
[2023-11-25] MEDS: amLODIPine BESYLATE 5 MG TABLET PO (08:49)
[2023-11-25] MEDS: BISACODYL 5 MG TABLET EC PO (08:49)
[2023-11-25] MEDS: SACUBITRIL/VALSARTAN 97-103 MG TABLET 1 TAB PO ×2 (08:49→20:47)
[2023-11-25] MEDS: DOCUSATE SODIUM 100 MG CAPSULE PO (08:49)
[2023-11-25] MEDS: CALCIUM/VITAMIN D 250 MG TABLET 2 TABLET PO ×2 (08:49→17:36)
[2023-11-25] MEDS: FUROSEMIDE 20 MG TABLET PO (08:49)
[2023-11-25] MEDS: ATORVASTATIN 10 MG TABLET 20 MG PO (08:49)
[2023-11-25] MEDS: APIXABAN 2.5 MG TABLET 5 MG BY MOUTH ×2 (08:49→20:47)
[2023-11-25] MEDS: PANTOPRAZOLE SOD SESQUIHYDRATE 20 MG TAB PO (08:49)
[2023-11-25] MEDS: PREGABALIN (*CRX) 25 MG CAPSULE 75 MG PO ×2 (08:50→20:47)
[2023-11-25] MEDS: oxyCODONE HCL (*CRX) 5 MG TAB IR 15 MG PO ×3 (08:54→23:49)
[2023-11-25 11:25] LABS: Glucose Point of Care 178 mg/dl (65-105)
[2023-11-25 11:38] LABS: Glucose Point of Care 307 mg/dl (65-105)
[2023-11-25] MEDS: INSULIN HUMAN LISPRO (*BKC) 1,000 UNITS/10 ML VIAL SUB-Q (12:19)
[2023-11-25 16:00] VITALS: BP 116/64; PULSE 100; RESP 18; TEMP 36.1; O2SAT 96
[2023-11-25 16:53] LABS: Glucose Point of Care 162 mg/dl (65-105)
[2023-11-25 17:00] VITALS: BP 116/64; PULSE 100; RESP 18; TEMP 36.1; O2SAT 96
[2023-11-25] MEDS: CYCLOBENZAPRINE HCL 5 MG TABLET PO (20:03)
[2023-11-25] MEDS: rOPINIRole HCL 0.25 MG TABLET PO (20:47)
[2023-11-25 20:58] LABS: Glucose Point of Care 330 mg/dl (65-105)
[2023-11-25] MEDS: MINERAL OIL/PETROLATUM OPHTH OINT 3.5 GM (EYE LUBRICANT) 1 APPLIC EACH EYE (21:00)
[2023-11-25] MEDS: INSULIN GLARGINE (*BKC) 1,000 UNITS/10 ML VIAL 35 UNITS SUB-Q (21:00)
[2023-11-26] VITALS: BP 118/61; PULSE 84; RESP 16; TEMP 36.1; O2SAT 92
[2023-11-26] MEDS: ACETAMINOPHEN 500 MG TABLET PO (04:11)
[2023-11-26 08:00] VITALS: BP 124/80; PULSE 53; RESP 16; TEMP 36.4; O2SAT 98; O2SAT 99
[2023-11-26 08:13] LABS: Glucose Point of Care 179 mg/dl (65-105)
[2023-11-26] MEDS: INSULIN HUMAN LISPRO (*BKC) 1,000 UNITS/10 ML VIAL 10 UNITS SUB-Q (08:40)
[2023-11-26] MEDS: PREGABALIN (*CRX) 25 MG CAPSULE 75 MG PO (09:40)
[2023-11-26] MEDS: CALCIUM/VITAMIN D 250 MG TABLET 2 TABLET PO (10:00)
[2023-11-26] MEDS: SACUBITRIL/VALSARTAN 97-103 MG TABLET 1 TAB PO (10:00)
[2023-11-26] MEDS: oxyCODONE HCL (*CRX) 5 MG TAB IR 15 MG PO (10:01)
[2023-11-26] MEDS: DULoxetine HCL 30 MG CAPSULE.DR 60 MG PO (10:03)
[2023-11-26] MEDS: APIXABAN 2.5 MG TABLET 5 MG BY MOUTH (10:03)
[2023-11-26] MEDS: ASPIRIN 81 MG ENTERIC TABLET PO (10:03)
[2023-11-26] MEDS: ATORVASTATIN 10 MG TABLET 20 MG PO (10:03)
[2023-11-26] MEDS: POTASSIUM CHLORIDE 20 MEQ ER TABLET PO (10:04)
[2023-11-26] MEDS: PANTOPRAZOLE SOD SESQUIHYDRATE 20 MG TAB PO (10:04)
[2023-11-26] MEDS: FUROSEMIDE 20 MG TABLET PO (10:04)
[2023-11-26] MEDS: CYCLOBENZAPRINE HCL 5 MG TABLET PO (10:04)
[2023-11-26] MEDS: amLODIPine BESYLATE 5 MG TABLET PO (10:04)
--- NOTE | 2023-11-26 10:07 | ECG_ITS ---
Measurements Intervals [place] Rate: 109 P: 57 ME: 168 QRS: -6 QRSD: 90 T: 85 QT: 355 QTc: 479 Interpretive Statements SINUS TACHYCARDIA ATRIAL AND VENTRICULAR PREMATURE COMPLEXES LEFT VENTRICULAR HYPERTROPHY WITH ST-T CHANGE NONSPECIFIC ST-T WAVE ABNORMALITY- LATERAL LEADS BASELINE ARTIFACT- II, III, AVF ABNORMAL ECG COMPARED TO ECG 09/09/2022 10:54:25 SINUS TACHYCARDIA NOW PRESENT Electronically Signed On 11-27-2023 8:33:06 CDT by Ant Wyatt D.O.
[2023-11-26] MEDS: LOPERAMIDE HCL 2 MG CAPSULE 4 MG PO (10:33)
[2023-11-26 11:30] VITALS: O2SAT 94
--- NOTE | 2023-11-26 12:28 | PC.NURSE ---
Pt discharged home to family care. Discharge instructions given to pt and spouse. Medication reviewed, Oxygen precautions reviewed, CHF teaching done. Pt encouraged to call PCP for hospital follow up. Home health from [facility] will see pt on 11/28/23. Pt is awear.
--- NOTE | 2023-11-26 12:36 | PM.DS ---
DS: Admitting Diagnosis Discharge Date 11/26/23 Admitting Diagnosis Swing bed admit DS: Discharge Diagnosis Discharge Diagnosis (1) Spine disorder: Code(s): M53.9 - Dorsopathy, unspecified Status: Acute Assessment and Plan: S/P kyphoplasty T4, T5, T6 at [facility]. TLSO brace, pain improving post procedure. (2) Diabetes type 2, uncontrolled: Status: Acute Assessment and Plan: ACHS fingerstick glucose, Lantus and high dose SSI. (3) HTN (hypertension): Code(s): I10 - Essential (primary) hypertension Status: Acute Assessment and Plan: Stable, continue amlodipine and Entresto. (4) Atrial fibrillation: Code(s): I48.91 - Unspecified atrial fibrillation Status: Chronic Assessment and Plan: On Eliquis, chronic (5) Chronic pain disorder: Code(s): G89.4 - Chronic pain syndrome Status: Acute Assessment and Plan: Fibromyalgia plus spinal fractures/surgeries, continue prescribed pain management including fentanyl patch, oxycodone PRN, Cymbalta, Tylenol, pregabalin (6) Sleep apnea in adult: Code(s): G47.30 - Sleep apnea, unspecified Status: Acute Assessment and Plan: Home CPAP machine with oxygen bleed in (7) Chronic hypoxemic respiratory failure: Code(s): J96.11 - Chronic respiratory failure with hypoxia Status: Acute Assessment and Plan: On home oxygen, stable Plan PT/OT for rehab/strengthening DS: Summary Hospital Course Hospital Course: This is a 4-year-old female with a past medical history of cardiomyopathy, hypertension, CHF, chronic hypoxic respiratory failure on home oxygen, type 2 diabetes, AFib, spinal spondylosis, fibromyalgia, restless legs syndrome, spinal fractures, hypothyroidism and CHRISTIAN. She was recently discharged from [place] after a kyphoplasty on T4, T5, and T6. Prior to this patient was admitted to [facility] with severe upper back pain after having COVID with lots of coughing and found have an acute compression fracture of T5 that was worsened by cough. She was transferred to [facility] when she underwent kyphoplasty. She presented to the [facility] on 11/20 for swing bed admission. She has completed her therapy and her weakness has improved. She is ready to be discharged home today. I saw the patient this morning and she was complaining of some anxiety regarding discharge today. She is nervous about her being able to care for her. She was having some loose stools so she asked for Imodium. He thinks it is because she has been taking a lot of bowel regimen due to her high doses of narcotics. She says that usually she takes metformin at home and this helps to conduct full keep her regular but it is not unusual for her to have bouts of diarrhea and then formed stool. She has a little bit of some chest discomfort that she attributes to anxiety and possible indigestion. Regardless he wanted to get an EKG prior to discharge. EKG with no concerning findings therefore patient was discharged home. Status at Discharge Cognitive/behavioral status at discharge: A&O x4 Time Spent with Patient Time attestation: Total time spent providing and/or coordinating discharge services: 36 Exam Narrative: General: well appearing, well developed, well nourished, appears stated age.? She is wearing her back brace HEENT: normocephalic, atraumatic. Mucous membranes moist. EOMI, PERRLA, bilateral sclera anicteric, no conjunctival injection. Neck supple without JVD, lymphadenopathy, or bruit. Respiratory: clear to auscultation bilaterally. No rales/rhonic/wheezes. Cardiovascular: Regular rate and rhythm, normal S1-S2 upon auscultation. No murmurs, rubs, or clicks. PMI is nondisplaced, capillary re-fill less than 3 second. Abdomen: Soft, round, no pulsatile masses, non-distended, and non-tender. No rebound, no guarding. No CVA tenderness, no hepatosplenomegaly.? Bowel s
--- NOTE | 2023-11-27 10:52 | PC.NURSE ---
Discharge call back attempted, no answer
--- NOTE | 2023-11-29 13:53 | PC.NURSE ---
Discharge call back attempted, no answer
--- NOTE | 2023-12-04 09:17 | PC.NURSE ---
Discharge call back attempted, no answer
== END 2023-11-26 11:30 | disposition home health service (06) | DRG 560 ==
PROVIDERS: Admitting Provider Internal Medicine; PCP Internal Medicine; Visit Provider Internal Medicine
DX: S22.059D Unspecified fracture of T5-T6 vertebra, subsequent encounter for fracture with routine healing (principal); I42.9 Cardiomyopathy, unspecified; I48.20 Chronic atrial fibrillation, unspecified; J96.11 Chronic respiratory failure with hypoxia; M47.12 Other spondylosis with myelopathy, cervical region; I11.0 Hypertensive heart disease with heart failure; I50.9 Heart failure, unspecified; E03.9 Hypothyroidism, unspecified; E11.42 Type 2 diabetes mellitus with diabetic polyneuropathy; M47.9 Spondylosis, unspecified; M79.7 Fibromyalgia; M19.90 Unspecified osteoarthritis, unspecified site; M47.22 Other spondylosis with radiculopathy, cervical region; G47.33 Obstructive sleep apnea (adult) (pediatric); G25.81 Restless legs syndrome; F32.A Depression, unspecified; F41.9 Anxiety disorder, unspecified; Z85.850 Personal history of malignant neoplasm of thyroid; Z99.81 Dependence on supplemental oxygen; Z98.1 Arthrodesis status; Z87.891 Personal history of nicotine dependence; Z79.82 Long term (current) use of aspirin; Z79.01 Long term (current) use of anticoagulants
CPT/HCPCS: 82948; 93005; 97110; 97112; 97161; 97165; 97530; 97535; A9270; J1815

== ENCOUNTER 2024-06-04 13:00 | Inpatient (IN) | payer OTHER, MEDICARE, SELFPAY ==
[2024-06-04 13:15] VITALS: BP 102/70; PULSE 81; RESP 20; TEMP 36; O2SAT 100
[2024-06-04 13:30] VITALS: BMI 25.9
--- NOTE | 2024-06-04 13:30 | ADMGEN ---
This patient, Maggie Parra, was admitted to 2nd Floor Room 205-2. Patient/family oriented to hospital policies and general routines including ID bracelet, bed and alarms, visiting hours, pain management, procedures, bathroom and other care routines, personal items, smoking policy, room service/diet, and visiting hours. Information on how to activate the Rapid Response Team has been discussed. Patient/Family are encouraged to report perceived risks to care and to ask questions if they do not understand what they are told or what they should do.
--- NOTE | 2024-06-04 15:18 | PHAR ---
VERIFED PT.'S HOME MEDS: MAXALT (RIZATRIPTAN) 10MG TABLET. 1 TABLET ONE TIME NEEDED FOR MIGRAINE. MAY REPEAT IN 2 HOURS IF UNRESOLVED. DO NOT EXCEED 30MG/24 HOURS. BUPRENORPHINE 10MCG/HR PATCH. APPLY PATCH ONCE WEEKLY.
[2024-06-04 16:00] VITALS: BP 116/79; PULSE 100; RESP 18; TEMP 35.9; O2SAT 91
[2024-06-04] MEDS: BUPRENORPHINE TOPICAL (16:42)
[2024-06-04] MEDS: [UNRECOGNIZED DRUG - OTHER] TOPICAL (16:42)
[2024-06-04] MEDS: MIDODRINE HCL 2.5 MG TABLET 10 MG BY MOUTH (16:42)
[2024-06-04] MEDS: oxyCODONE HCL (*CRX) 5 MG TAB IR 10 MG PO ×2 (16:43→20:42)
[2024-06-04] MEDS: ONDANSETRON HCL ODT 4 MG TABLET PO (16:43)
[2024-06-04] MEDS: PANTOPRAZOLE 40 MG TABLET PO (16:43)
[2024-06-04 16:54] LABS: Glucose Point of Care 102 mg/dl (65-105)
[2024-06-04] MEDS: METOPROLOL TARTRATE 12.5 MG TABLET PO (20:42)
[2024-06-04] MEDS: APIXABAN 2.5 MG TABLET 5 MG BY MOUTH (20:42)
[2024-06-04] MEDS: SACUBITRIL/VALSARTAN 24-26 MG TABLET 1 TAB PO (20:43)
[2024-06-04 20:54] LABS: Glucose Point of Care 90 mg/dl (65-105)
[2024-06-05] VITALS: BP 125/87; PULSE 95; RESP 18; TEMP 36.1; O2SAT 99
[2024-06-05] MEDS: oxyCODONE HCL (*CRX) 5 MG TAB IR 10 MG PO ×5 (01:28→21:18)
[2024-06-05 05:16] LABS: Hematocrit 30.7 % (35.0-49.0); Hemoglobin 8.1 g/dL (12.0-15.0); Mean Corpuscular HGB Conc 26.4 g/dL (32-36); Mean Corpuscular Hemoglobin 19.9 pg (27.0-31.0); Mean Corpuscular Volume 75.4 fL (78.0-102.0); Mean Platelet Volume 9.4 fl (9.2-11.8); Platelet Count Result 389 K/mm3 (150-420); Red Blood Count 4.07 M/mm3 (4.20-5.40); Red Cell Distribution Width 25.4 % (11.6-14.4); White Blood Count 6.9 K/mm3 (4.8-10.8)
[2024-06-05 05:32] LABS: Alanine Aminotransferase 45 U/L (14-59); Albumin Level 3.7 g/dL (3.4-5.0); Alkaline Phosphatase 124 U/L (46-116); Anion Gap 3 mmol/L (4-12); Aspartate Amino Transferase 19 U/L (15-37); Bilirubin,Total 0.6 mg/dL (0.00-1.00); Blood Urea Nitrogen 14 mg/dL (7-18); Calcium 8.6 mg/dL (8.5-10.1); Carbon Dioxide 37 mmol/L (21-32); Chloride 102 mmol/L (98-108); Estimated CRCL calculation 73 ml/min; Estimated Glomerular Filt Rate > 60; Potassium 4.3 mmol/L (3.5-5.1); Sodium 142 mmol/L (136-145); Total Protein 6.3 g/dL (6.4-8.2)
[2024-06-05 05:38] LABS: Glucose 91 mg/dL (70-99); Osmolality Calculated 294 mOsm/kg (285-295)
[2024-06-05] MEDS: LEVOTHYROXINE SODIUM 100 MCG, LEVOTHYROXINE SODIUM 25 MCG 125 MCG PO (05:58)
[2024-06-05 08:00] VITALS: BP 129/86; PULSE 93; RESP 16; TEMP 35.7; O2SAT 100
--- NOTE | 2024-06-05 08:26 | PM.IMHP ---
H&P: HPI History of Present Illness Date/Time: 06/05/24 08:26 Chief Complaint: weakness Narrative: This is a 58-year-old female with a past medical history of atrial fibrillation on Eliquis, hypertension, diabetes, and congestive heart failure who presents to [facility] for further PT and OT for deconditioning and weakness. She initially presented to an outside hospital with complaints of GI bleeding and was transferred to [facility] for further workup. During that hospitalization she fell and sustained a right femoral neck fracture for which she underwent right hip percutaneous pinning on 05/15. She then discharged to acute rehab at [place] for further PT/OT. She presents to [place] swing bed program for further PT/OT as she continues to have weakness and difficulty with transfers. On exam today she is resting in bed in no acute distress. She is having some slight shortness of breath which she feels is more than her baseline. She has also been having persistent nausea and dizziness since she traveled in the car yesterday from [facility] to [place]. [facility] Past Medical History Medical History Adult hypothyroidism Anxiety Arthritis Atrial fibrillation Bronchitis Cervical spondylosis with myelopathy and radiculopathy Chronic back pain Chronic hypoxemic respiratory failure Chronic pain disorder DDD (degenerative disc disease) Depression Diabetes mellitus Diabetes type 2, uncontrolled Fibromyalgia HTN (hypertension) Hyperlipidemia Major depressive disorder, recurrent, moderate Migraine Muscle spasm Ovarian cyst Peripheral neuropathy Pneumonia Sleep apnea in adult Thyroid ca Type 2 diabetes mellitus without complications UTI (urinary tract infection) Surgical History Surgical History H/O thyroidectomy History of hysterectomy History of spinal fusion S/P cervical spinal fusion Family History Family History Grandparent Diabetes mellitus, Onset Age: 200 Family history of lupus erythematosus, Onset Age: 200 Mother Family history of malignant neoplasm of breast in first degree relative Hypertension Cerebrovascular accident Father Family history of coronary artery disease, Onset Age: 40 Hypertension Chronic obstructive pulmonary disease Other Family history of malignant neoplasm of male breast Social History Social History Social History: Smoking packs per day: 3 Smoking cigarettes per day: 60.0 Years smoked: 7 Smoking pack-years: 21.00 Smoking status: Former smoker Tobacco type: cigarettes Second hand tobacco smoke exposure: No Smoking end date: 09/18/86 Alcohol intake: never Substance use: never Substance use type: does not use Do You Feel Safe in your Home?: Yes Lack of Transportation: No Lack of Food: Never True Current Housing: I Have Housing Concerned About Future Housing: No Difficulty Paying Gas/Electric Bills: No Difficulty Paying for Meds: No Currently Unemployed: No Education: Never Attended/Kindergarten Only Difficulty w/ Childcare or Family Care: No Living arrangements: with family Occupation/Education: retired Additional occupation/education comments: Disability Gender identity (if verbalized by the patient): Female Sexual Orientation (if Verbalized by the Patient): Straight or Heterosexual Spiritual care concerns: No Meds Home Medications and Allergies Home Medications Medication Instructions Recorded Confirmed Type ergocalciferol (vitamin D2) 25,000 50,000 unit PO WEEKLY 11/20/23 06/04/24 History unit capsule naloxone 4 mg/actuation nasal spray 1 spray intranasal PRN PRN Opiate 11/20/23 06/04/24 History Reversal buprenorphine 10 mcg/hour weekly 1 patch trans
[2024-06-05 08:45] VITALS: PULSE 90
[2024-06-05] MEDS: CALCIUM/VITAMIN D 250 MG/3.125 MCG (125 I.U.) TABLET 2 TABLET PO (08:45)
[2024-06-05] MEDS: ATORVASTATIN 10 MG TABLET 20 MG PO (08:45)
[2024-06-05] MEDS: METOPROLOL TARTRATE 12.5 MG TABLET PO ×2 (08:45→21:18)
[2024-06-05] MEDS: DULoxetine HCL 30 MG CAPSULE.DR 60 MG PO (08:45)
[2024-06-05] MEDS: AMIODARONE HCL 200 MG TABLET PO (08:45)
[2024-06-05] MEDS: MIDODRINE HCL 2.5 MG TABLET 10 MG BY MOUTH ×3 (08:45→17:07)
[2024-06-05] MEDS: PANTOPRAZOLE 40 MG TABLET PO ×2 (08:46→17:06)
[2024-06-05] MEDS: FUROSEMIDE 20 MG TABLET PO ×2 (08:46→17:10)
[2024-06-05] MEDS: POTASSIUM CHLORIDE 20 MEQ ER TABLET PO (08:46)
[2024-06-05] MEDS: metFORMIN HCL 500 MG TABLET 1000 MG PO (08:46)
[2024-06-05] MEDS: ASPIRIN 81 MG CHEWABLE TABLET PO (08:46)
[2024-06-05] MEDS: APIXABAN 2.5 MG TABLET 5 MG BY MOUTH ×2 (08:46→21:18)
[2024-06-05] MEDS: rOPINIRole HCL 0.25 MG TABLET PO (08:47)
[2024-06-05] MEDS: SACUBITRIL/VALSARTAN 24-26 MG TABLET 1 TAB PO ×2 (08:49→21:18)
[2024-06-05] MEDS: INSULIN HUMAN LISPRO (*BKC) 1,000 UNITS/10 ML VIAL 7 UNITS SUB-Q ×2 (09:00→12:11)
[2024-06-05] MEDS: INSULIN GLARGINE (*BKC) 1,000 UNITS/10 ML VIAL 30 UNITS SUB-Q (09:01)
[2024-06-05] MEDS: ONDANSETRON HCL ODT 4 MG TABLET PO ×2 (09:05→14:21)
[2024-06-05 11:58] LABS: Glucose Point of Care 148 mg/dl (65-105)
[2024-06-05 16:00] VITALS: BP 104/67; PULSE 70; RESP 18; TEMP 36.4; O2SAT 100
[2024-06-05 17:10] LABS: Glucose Point of Care 47 mg/dl (65-105)
[2024-06-05 17:33] LABS: Glucose Point of Care 54 mg/dl (65-105)
[2024-06-05] MEDS: GLUCOSE ORAL GEL 15 GM OF GLUCSE IN 37.5 GM TUBE PO (17:35)
[2024-06-05 17:51] LABS: Glucose 82 mg/dL (70-99)
--- NOTE | 2024-06-05 17:51 | PC.NURSE ---
Pt blood sugar at 1705 47 via fingerstick. Pt asymptomatic and beginning to eat supper. Pt stated she thought the supper would help and declined glucose at this time. Recheck at 1728 was 54. Pt given oral glucose and lab henok blood to confirm glucose level.
[2024-06-05 18:15] LABS: Glucose Point of Care 121 mg/dl (65-105)
--- NOTE | 2024-06-05 18:40 | PC.NURSE ---
Velma Berumen, EQUIPMENT MAINT TECH/Hospitalist, notified of patient's blood sugars and lab results. New order to repeat accucheck at 0200. Hospitalist adjusted diabetic medication.
[2024-06-05] MEDS: CYCLOBENZAPRINE HCL 10 MG TABLET PO (19:28)
[2024-06-05 19:34] VITALS: O2SAT 97
[2024-06-05 21:28] LABS: Glucose Point of Care 121 mg/dl (65-105)
[2024-06-06] VITALS: BP 121/78; PULSE 82; RESP 18; TEMP 36.1; O2SAT 96
[2024-06-06] MEDS: oxyCODONE HCL (*CRX) 5 MG TAB IR 10 MG PO ×5 (01:59→23:25)
[2024-06-06 02:10] LABS: Glucose Point of Care 134 mg/dl (65-105)
[2024-06-06] MEDS: LEVOTHYROXINE SODIUM 100 MCG, LEVOTHYROXINE SODIUM 25 MCG 125 MCG PO (06:21)
[2024-06-06 08:00] VITALS: BP 112/78; PULSE 89; RESP 16; TEMP 35.7; O2SAT 100
[2024-06-06 08:06] LABS: Glucose Point of Care 159 mg/dl (65-105)
[2024-06-06 09:19] VITALS: PULSE 92
[2024-06-06] MEDS: METOPROLOL TARTRATE 12.5 MG TABLET PO ×2 (09:19→20:27)
[2024-06-06] MEDS: ERGOCALCIFEROL 50,000 UNITS CAPSULE 50000 UNITS PO (09:19)
[2024-06-06] MEDS: CALCIUM/VITAMIN D 250 MG/3.125 MCG (125 I.U.) TABLET 2 TABLET PO (09:19)
[2024-06-06 09:20] VITALS: PULSE 92
[2024-06-06] MEDS: APIXABAN 2.5 MG TABLET 5 MG BY MOUTH ×2 (09:20→20:28)
[2024-06-06] MEDS: SACUBITRIL/VALSARTAN 24-26 MG TABLET 1 TAB PO ×2 (09:20→20:27)
[2024-06-06] MEDS: ASPIRIN 81 MG CHEWABLE TABLET PO (09:20)
[2024-06-06] MEDS: FUROSEMIDE 20 MG TABLET PO (09:20)
[2024-06-06] MEDS: rOPINIRole HCL 0.25 MG TABLET PO (09:20)
[2024-06-06] MEDS: ATORVASTATIN 10 MG TABLET 20 MG PO (09:20)
[2024-06-06] MEDS: PANTOPRAZOLE 40 MG TABLET PO ×2 (09:20→17:02)
[2024-06-06] MEDS: AMIODARONE HCL 200 MG TABLET PO (09:20)
[2024-06-06] MEDS: POTASSIUM CHLORIDE 20 MEQ ER TABLET PO (09:20)
[2024-06-06] MEDS: INSULIN GLARGINE (*BKC) 1,000 UNITS/10 ML VIAL 25 UNITS SUB-Q (09:21)
[2024-06-06] MEDS: DULoxetine HCL 30 MG CAPSULE.DR 60 MG PO (09:21)
[2024-06-06] MEDS: MIDODRINE HCL 2.5 MG TABLET 10 MG BY MOUTH ×3 (09:21→17:02)
--- NOTE | 2024-06-06 10:52 | P.PNCROSS_ITS ---
Event Note Event Note Event Note: Patient had episode of hypoglycemia yesterday. Hypoglycemia protocol was follo mon and patient received 15 g of glucose orally. She had episodes of nausea yesterday with poor intake which is likely what precipitated her low blood sugars. She was receiving 7 units of lispro with each meal. I have discontinued 7 units with her meals and will follow high-dose sliding scale for now. DC metformin. Her Lantus dose was decreased as well. Blood sugar this morning fasting was 159. Will monitor blood sugars and make further adjustments to insulin as needed.
[2024-06-06 12:13] LABS: Glucose Point of Care 183 mg/dl (65-105)
[2024-06-06] MEDS: ONDANSETRON HCL ODT 4 MG TABLET PO (13:41)
[2024-06-06 16:00] VITALS: BP 118/79; PULSE 86; RESP 20; TEMP 35.9; O2SAT 100
[2024-06-06] MEDS: CYCLOBENZAPRINE HCL 10 MG TABLET PO ×2 (17:02→23:27)
[2024-06-06 17:11] LABS: Glucose Point of Care 160 mg/dl (65-105)
[2024-06-06 20:27] VITALS: PULSE 82
[2024-06-06] MEDS: ACETAMINOPHEN 325 MG TABLET 650 MG BY MOUTH (20:27)
[2024-06-06] MEDS: SENNA/DOCUSATE SODIUM TABLET 1 TAB PO (20:27)
[2024-06-07] VITALS: BP 115/69; PULSE 82; RESP 16; TEMP 36.6; O2SAT 100
[2024-06-07 01:39] LABS: Glucose Point of Care 303 mg/dl (65-105)
[2024-06-07] MEDS: oxyCODONE HCL (*CRX) 5 MG TAB IR 10 MG PO ×4 (05:08→20:08)
[2024-06-07] MEDS: LEVOTHYROXINE SODIUM 100 MCG, LEVOTHYROXINE SODIUM 25 MCG 125 MCG PO (06:24)
[2024-06-07 07:24] LABS: Glucose Point of Care 177 mg/dl (65-105)
[2024-06-07 08:00] VITALS: PULSE 78; RESP 18; TEMP 36.1; O2SAT 96
[2024-06-07] MEDS: polyethylene glycoL 3350 17 GM POWD.PACK PO (08:42)
[2024-06-07] MEDS: POTASSIUM CHLORIDE 20 MEQ ER TABLET PO (08:42)
[2024-06-07] MEDS: FUROSEMIDE 20 MG TABLET PO (08:42)
[2024-06-07 08:43] VITALS: PULSE 78
[2024-06-07] MEDS: DULoxetine HCL 30 MG CAPSULE.DR 60 MG PO (08:43)
[2024-06-07] MEDS: AMIODARONE HCL 200 MG TABLET PO (08:43)
[2024-06-07] MEDS: CALCIUM/VITAMIN D 250 MG/3.125 MCG (125 I.U.) TABLET 2 TABLET PO (08:43)
[2024-06-07] MEDS: SACUBITRIL/VALSARTAN 24-26 MG TABLET 1 TAB PO ×2 (08:43→20:10)
[2024-06-07] MEDS: METOPROLOL TARTRATE 12.5 MG TABLET PO ×2 (08:44→20:10)
[2024-06-07] MEDS: ATORVASTATIN 10 MG TABLET 20 MG PO (08:44)
[2024-06-07] MEDS: MIDODRINE HCL 2.5 MG TABLET 10 MG BY MOUTH ×3 (08:44→16:33)
[2024-06-07] MEDS: ASPIRIN 81 MG CHEWABLE TABLET PO (08:44)
[2024-06-07] MEDS: rOPINIRole HCL 0.25 MG TABLET PO (08:44)
[2024-06-07] MEDS: PANTOPRAZOLE 40 MG TABLET PO ×2 (08:45→16:32)
[2024-06-07] MEDS: APIXABAN 2.5 MG TABLET 5 MG BY MOUTH ×2 (08:45→20:10)
[2024-06-07] MEDS: INSULIN GLARGINE (*BKC) 1,000 UNITS/10 ML VIAL 25 UNITS SUB-Q (08:48)
[2024-06-07 11:52] LABS: Glucose Point of Care 237 mg/dl (65-105)
[2024-06-07] MEDS: INSULIN HUMAN LISPRO (*BKC) 1,000 UNITS/10 ML VIAL SUB-Q (12:01)
[2024-06-07] MEDS: ACETAMINOPHEN 325 MG TABLET 650 MG BY MOUTH (15:40)
[2024-06-07] MEDS: CYCLOBENZAPRINE HCL 10 MG TABLET PO (15:41)
[2024-06-07 16:00] VITALS: BP 113/82; PULSE 87; RESP 18; TEMP 36.3; O2SAT 99
[2024-06-07] MEDS: ONDANSETRON HCL ODT 4 MG TABLET PO (16:33)
[2024-06-07 16:38] LABS: Glucose Point of Care 177 mg/dl (65-105)
[2024-06-07 20:10] VITALS: PULSE 83
[2024-06-07 20:10] LABS: Glucose Point of Care 240 mg/dl (65-105)
[2024-06-07] MEDS: SENNA/DOCUSATE SODIUM TABLET 1 TAB PO (20:10)
[2024-06-08] VITALS: BP 110/72; PULSE 87; RESP 16; TEMP 36.6; O2SAT 100
[2024-06-08] MEDS: ACETAMINOPHEN 325 MG TABLET 650 MG BY MOUTH ×4 (01:38→20:56)
[2024-06-08] MEDS: CYCLOBENZAPRINE HCL 10 MG TABLET PO ×4 (01:38→20:55)
[2024-06-08] MEDS: LEVOTHYROXINE SODIUM 100 MCG, LEVOTHYROXINE SODIUM 25 MCG 125 MCG PO (06:17)
[2024-06-08] MEDS: oxyCODONE HCL (*CRX) 5 MG TAB IR 10 MG PO ×4 (06:17→22:18)
[2024-06-08 08:00] VITALS: BP 120/77; PULSE 90; RESP 16; TEMP 36; O2SAT 99
[2024-06-08 08:02] VITALS: PULSE 90
[2024-06-08] MEDS: METOPROLOL TARTRATE 12.5 MG TABLET PO ×2 (08:02→20:55)
[2024-06-08] MEDS: INSULIN GLARGINE (*BKC) 1,000 UNITS/10 ML VIAL 25 UNITS SUB-Q (08:02)
[2024-06-08 08:03] LABS: Glucose Point of Care 186 mg/dl (65-105)
[2024-06-08] MEDS: FUROSEMIDE 20 MG TABLET PO (08:04)
[2024-06-08] MEDS: DULoxetine HCL 30 MG CAPSULE.DR 60 MG PO (08:04)
[2024-06-08] MEDS: MIDODRINE HCL 2.5 MG TABLET 10 MG BY MOUTH ×3 (08:04→17:01)
[2024-06-08] MEDS: PANTOPRAZOLE 40 MG TABLET PO ×2 (08:04→17:01)
[2024-06-08] MEDS: ASPIRIN 81 MG CHEWABLE TABLET PO (08:04)
[2024-06-08] MEDS: ATORVASTATIN 10 MG TABLET 20 MG PO (08:04)
[2024-06-08] MEDS: APIXABAN 2.5 MG TABLET 5 MG BY MOUTH ×2 (08:04→20:55)
[2024-06-08] MEDS: SACUBITRIL/VALSARTAN 24-26 MG TABLET 1 TAB PO ×2 (08:04→20:55)
[2024-06-08 08:05] VITALS: PULSE 90
[2024-06-08] MEDS: AMIODARONE HCL 200 MG TABLET PO (08:05)
[2024-06-08] MEDS: CALCIUM/VITAMIN D 250 MG/3.125 MCG (125 I.U.) TABLET 2 TABLET PO (08:05)
[2024-06-08] MEDS: rOPINIRole HCL 0.25 MG TABLET PO (08:05)
[2024-06-08] MEDS: POTASSIUM CHLORIDE 20 MEQ ER TABLET PO (08:05)
[2024-06-08] MEDS: ONDANSETRON HCL ODT 4 MG TABLET PO (08:14)
[2024-06-08 11:50] LABS: Glucose Point of Care 277 mg/dl (65-105)
[2024-06-08] MEDS: INSULIN HUMAN LISPRO (*BKC) 1,000 UNITS/10 ML VIAL SUB-Q ×2 (12:13→17:01)
[2024-06-08 16:00] VITALS: BP 118/77; PULSE 75; RESP 18; TEMP 35.8; O2SAT 100
[2024-06-08 16:56] LABS: Glucose Point of Care 203 mg/dl (65-105)
[2024-06-08] MEDS: SENNA/DOCUSATE SODIUM TABLET 1 TAB PO (20:56)
[2024-06-08 21:09] LABS: Glucose Point of Care 181 mg/dl (65-105)
[2024-06-09] VITALS: BP 112/75; PULSE 68; RESP 18; TEMP 36.6; O2SAT 99
[2024-06-09] MEDS: oxyCODONE HCL (*CRX) 5 MG TAB IR 10 MG PO ×5 (04:15→21:31)
[2024-06-09 05:30] VITALS: O2SAT 100
[2024-06-09] MEDS: LEVOTHYROXINE SODIUM 100 MCG, LEVOTHYROXINE SODIUM 25 MCG 125 MCG PO (06:28)
[2024-06-09] MEDS: ONDANSETRON HCL ODT 4 MG TABLET PO ×2 (06:29→13:46)
[2024-06-09 08:00] VITALS: BP 108/54; PULSE 87; RESP 16; TEMP 36.1; O2SAT 97
[2024-06-09 08:10] LABS: Glucose Point of Care 213 mg/dl (65-105)
[2024-06-09] MEDS: INSULIN HUMAN LISPRO (*BKC) 1,000 UNITS/10 ML VIAL SUB-Q ×2 (08:15→12:11)
--- NOTE | 2024-06-09 08:27 | PM.EVENT ---
Event Note Event Note Event Note: Patient experienced a nose bleed overnight. Nursing applied nasal tampon which I removed this morning. No active bleeding present. She has been instructed not to blow her nose forcefully and no picking. Will hold her aspirin and eliquis today. She has prn Afrin as needed for recurrent bleeding.
[2024-06-09] MEDS: PANTOPRAZOLE 40 MG TABLET PO ×2 (09:50→17:47)
[2024-06-09] MEDS: SACUBITRIL/VALSARTAN 24-26 MG TABLET 1 TAB PO ×2 (09:50→21:30)
[2024-06-09] MEDS: CALCIUM/VITAMIN D 250 MG/3.125 MCG (125 I.U.) TABLET 2 TABLET PO (09:50)
[2024-06-09] MEDS: DULoxetine HCL 30 MG CAPSULE.DR 60 MG PO (09:50)
[2024-06-09 09:51] VITALS: PULSE 87
[2024-06-09] MEDS: METOPROLOL TARTRATE 12.5 MG TABLET PO ×2 (09:51→21:31)
[2024-06-09] MEDS: MIDODRINE HCL 2.5 MG TABLET 10 MG BY MOUTH ×3 (09:51→17:47)
[2024-06-09] MEDS: POTASSIUM CHLORIDE 20 MEQ ER TABLET PO (09:51)
[2024-06-09 09:52] VITALS: PULSE 87
[2024-06-09] MEDS: rOPINIRole HCL 0.25 MG TABLET PO (09:52)
[2024-06-09] MEDS: AMIODARONE HCL 200 MG TABLET PO (09:52)
[2024-06-09] MEDS: FUROSEMIDE 20 MG TABLET PO (09:52)
[2024-06-09] MEDS: ATORVASTATIN 10 MG TABLET 20 MG PO (09:52)
[2024-06-09] MEDS: INSULIN GLARGINE (*BKC) 1,000 UNITS/10 ML VIAL 25 UNITS SUB-Q (09:53)
[2024-06-09 12:11] LABS: Glucose Point of Care 212 mg/dl (65-105)
[2024-06-09] MEDS: CYCLOBENZAPRINE HCL 10 MG TABLET PO ×2 (12:13→19:25)
[2024-06-09 16:00] VITALS: BP 110/65; PULSE 88; RESP 18; TEMP 35.7; O2SAT 100
[2024-06-09 17:14] LABS: Glucose Point of Care 196 mg/dl (65-105)
[2024-06-09] MEDS: ACETAMINOPHEN 325 MG TABLET 650 MG BY MOUTH (19:25)
[2024-06-09] MEDS: SENNA/DOCUSATE SODIUM TABLET 1 TAB PO (21:30)
[2024-06-09 21:41] LABS: Glucose Point of Care 236 mg/dl (65-105)
[2024-06-10] VITALS (8 sets, daily range): BP systolic 114–122; BP diastolic 73–77; PULSE 83–101; RESP 14–16; TEMP 35.8–36.3; O2SAT 100
[2024-06-10] MEDS: ONDANSETRON HCL ODT 4 MG TABLET PO (06:23)
[2024-06-10] MEDS: oxyCODONE HCL (*CRX) 5 MG TAB IR 10 MG PO ×4 (06:23→21:03)
[2024-06-10] MEDS: LEVOTHYROXINE SODIUM 100 MCG, LEVOTHYROXINE SODIUM 25 MCG 125 MCG PO (06:24)
[2024-06-10 06:36] LABS: Glucose Point of Care 115 mg/dl (65-105)
--- NOTE | 2024-06-10 07:23 | PC.NURSE ---
Patient left unit for othopedic appointment with her in privately owned vehicle.
[2024-06-10] MEDS: PANTOPRAZOLE 40 MG TABLET PO ×2 (11:40→16:52)
[2024-06-10] MEDS: rOPINIRole HCL 0.25 MG TABLET PO (11:41)
[2024-06-10] MEDS: DULoxetine HCL 30 MG CAPSULE.DR 60 MG PO (11:42)
[2024-06-10] MEDS: POTASSIUM CHLORIDE 20 MEQ ER TABLET PO (11:42)
[2024-06-10] MEDS: INSULIN GLARGINE (*BKC) 1,000 UNITS/10 ML VIAL 25 UNITS SUB-Q (11:43)
[2024-06-10] MEDS: MIDODRINE HCL 2.5 MG TABLET 10 MG BY MOUTH ×2 (11:44→16:53)
[2024-06-10] MEDS: ASPIRIN 81 MG CHEWABLE TABLET PO (11:44)
[2024-06-10] MEDS: ATORVASTATIN 10 MG TABLET 20 MG PO (11:45)
[2024-06-10] MEDS: AMIODARONE HCL 200 MG TABLET PO (11:45)
[2024-06-10] MEDS: CALCIUM/VITAMIN D 250 MG/3.125 MCG (125 I.U.) TABLET 2 TABLET PO (11:46)
[2024-06-10] MEDS: SACUBITRIL/VALSARTAN 24-26 MG TABLET 1 TAB PO ×2 (11:47→21:03)
[2024-06-10] MEDS: FUROSEMIDE 20 MG TABLET PO (11:47)
[2024-06-10] MEDS: METOPROLOL TARTRATE 12.5 MG TABLET PO ×2 (11:47→21:03)
--- NOTE | 2024-06-10 11:51 | PC.NURSE ---
Addendum entered by Rosalia Angel RN 06/10/24 11:53: site open to air. Original Note: Spoke with Dr. Pantoja office, states they will fax over visit notes when they become availiable, given our fax number here. Patient states weight bearing status increased to 50%, yashira removed butterfly strips applied. Patient able to shower.
--- NOTE | 2024-06-10 11:55 | PC.NURSE ---
Patient returned to unit from ortho appointment at 1100. AM medications given late due to patient not being on unit at time of med pass. Nurse's computer and lost all scanned information on medication. Nurse found as many packs as possible in the trash to scan and then documented the rest of the medication manually.
[2024-06-10 11:56] LABS: Glucose Point of Care 217 mg/dl (65-105)
--- NOTE | 2024-06-10 11:57 | PC.NURSE ---
Patient refused to take her am eliquis due to nose bleed yesterday.
--- NOTE | 2024-06-10 11:57 | PC.NURSE ---
Spoke with sheila, will bring in Buprenorphine patch tomorrow.
[2024-06-10] MEDS: INSULIN HUMAN LISPRO (*BKC) 1,000 UNITS/10 ML VIAL SUB-Q ×2 (12:02→17:04)
--- NOTE | 2024-06-10 15:00 | PC.NURSE ---
This nurse noted that Tramadol stated to be given at 1330 not charted on NOV. Charge nurse Mckenna and Nurse customs brokerage manager Magaly notified. Verified with Divya HENDRICKS that patient medication was given via phone call. Divya HENDRICKS confirmed it was given at 1330, nurse had already left building, states she will address charting tomorrow.
[2024-06-10 16:57] LABS: Glucose Point of Care 224 mg/dl (65-105)
[2024-06-10] MEDS: CYCLOBENZAPRINE HCL 10 MG TABLET PO (19:39)
[2024-06-10] MEDS: ACETAMINOPHEN 325 MG TABLET 650 MG BY MOUTH (19:39)
[2024-06-10] MEDS: APIXABAN 2.5 MG TABLET 5 MG BY MOUTH (21:03)
[2024-06-10] MEDS: SENNA/DOCUSATE SODIUM TABLET 1 TAB PO (21:03)
[2024-06-11] VITALS (9 sets, daily range): BP systolic 104–117; BP diastolic 66–70; PULSE 84–91; RESP 16–17; TEMP 35.6–36.6; O2SAT 97–100
[2024-06-11 00:51] LABS: Glucose Point of Care 279 mg/dl (65-105)
[2024-06-11] MEDS: oxyCODONE HCL (*CRX) 5 MG TAB IR 10 MG PO ×5 (01:00→21:30)
[2024-06-11] MEDS: LEVOTHYROXINE SODIUM 100 MCG, LEVOTHYROXINE SODIUM 25 MCG 125 MCG PO (05:01)
[2024-06-11 07:53] LABS: Glucose Point of Care 193 mg/dl (65-105)
[2024-06-11] MEDS: INSULIN GLARGINE (*BKC) 1,000 UNITS/10 ML VIAL 25 UNITS SUB-Q (08:18)
--- NOTE | 2024-06-11 08:19 | PC.NURSE ---
Patient to call about bringing in medication patch that the hospital pharmacy does not have. Nurse waiting for it to be brought in .
[2024-06-11] MEDS: SACUBITRIL/VALSARTAN 24-26 MG TABLET 1 TAB PO ×2 (08:20→20:01)
[2024-06-11] MEDS: CALCIUM/VITAMIN D 250 MG/3.125 MCG (125 I.U.) TABLET 2 TABLET PO (08:20)
[2024-06-11] MEDS: FUROSEMIDE 20 MG TABLET PO (08:21)
[2024-06-11] MEDS: PANTOPRAZOLE 40 MG TABLET PO ×2 (08:21→17:23)
[2024-06-11] MEDS: AMIODARONE HCL 200 MG TABLET PO (08:21)
[2024-06-11] MEDS: METOPROLOL TARTRATE 12.5 MG TABLET PO ×2 (08:22→20:02)
[2024-06-11] MEDS: MIDODRINE HCL 2.5 MG TABLET 10 MG BY MOUTH ×3 (08:22→17:22)
[2024-06-11] MEDS: ATORVASTATIN 10 MG TABLET 20 MG PO (08:23)
[2024-06-11] MEDS: DULoxetine HCL 30 MG CAPSULE.DR 60 MG PO (08:23)
[2024-06-11] MEDS: ASPIRIN 81 MG CHEWABLE TABLET PO (08:24)
[2024-06-11] MEDS: rOPINIRole HCL 0.25 MG TABLET PO (08:24)
[2024-06-11] MEDS: POTASSIUM CHLORIDE 20 MEQ ER TABLET PO (08:25)
[2024-06-11] MEDS: APIXABAN 2.5 MG TABLET 5 MG BY MOUTH ×2 (08:25→20:03)
[2024-06-11] MEDS: ACETAMINOPHEN 325 MG TABLET 650 MG BY MOUTH ×2 (08:31→20:03)
[2024-06-11] MEDS: CYCLOBENZAPRINE HCL 10 MG TABLET PO ×2 (08:32→20:03)
[2024-06-11 11:39] LABS: Glucose Point of Care 253 mg/dl (65-105)
[2024-06-11] MEDS: INSULIN HUMAN LISPRO (*BKC) 1,000 UNITS/10 ML VIAL SUB-Q ×2 (11:45→17:23)
--- NOTE | 2024-06-11 12:00 | PC.NURSE ---
Patient stated that her is not going to bring in medication patch that was due today because he has other things to do . Patient stated that he will bring it in tomorrow. Pharmacy and charge nurse notified.
[2024-06-11 16:44] LABS: Glucose Point of Care 308 mg/dl (65-105)
[2024-06-11] MEDS: SENNA/DOCUSATE SODIUM TABLET 1 TAB PO (20:03)
[2024-06-11 20:14] LABS: Glucose Point of Care 256 mg/dl (65-105)
[2024-06-12] MEDS: oxyCODONE HCL (*CRX) 5 MG TAB IR 10 MG PO ×6 (02:18→22:48)
--- NOTE | 2024-06-12 02:25 | PC.NURSE ---
Pt c/o back pain and right leg pain and rates it as a '6' on a 1-10 pain scale. Pt requested pain medication and was given Roxicodone IR 10 mg PO to relieve c/o back and leg pain.
[2024-06-12 05:30] VITALS: O2SAT 100
[2024-06-12] MEDS: LEVOTHYROXINE SODIUM 100 MCG, LEVOTHYROXINE SODIUM 25 MCG 125 MCG PO (06:13)
[2024-06-12 08:00] VITALS: BP 110/72; PULSE 78; RESP 12; TEMP 36.9; O2SAT 96
[2024-06-12 08:07] LABS: Glucose Point of Care 180 mg/dl (65-105)
[2024-06-12] MEDS: CALCIUM/VITAMIN D 250 MG/3.125 MCG (125 I.U.) TABLET 2 TABLET PO (10:16)
[2024-06-12] MEDS: FUROSEMIDE 20 MG TABLET PO (10:18)
[2024-06-12] MEDS: APIXABAN 2.5 MG TABLET 5 MG BY MOUTH ×2 (10:18→20:48)
[2024-06-12] MEDS: DULoxetine HCL 30 MG CAPSULE.DR 60 MG PO (10:19)
[2024-06-12] MEDS: POTASSIUM CHLORIDE 20 MEQ ER TABLET PO (10:19)
[2024-06-12 10:20] VITALS: PULSE 78
[2024-06-12] MEDS: METOPROLOL TARTRATE 12.5 MG TABLET PO ×2 (10:20→20:48)
[2024-06-12] MEDS: PANTOPRAZOLE 40 MG TABLET PO ×2 (10:20→17:04)
[2024-06-12] MEDS: rOPINIRole HCL 0.25 MG TABLET PO (10:20)
[2024-06-12] MEDS: MIDODRINE HCL 2.5 MG TABLET 10 MG BY MOUTH ×3 (10:20→17:03)
[2024-06-12 10:21] VITALS: PULSE 78
[2024-06-12] MEDS: AMIODARONE HCL 200 MG TABLET PO (10:21)
[2024-06-12] MEDS: ASPIRIN 81 MG CHEWABLE TABLET PO (10:21)
[2024-06-12] MEDS: ATORVASTATIN 10 MG TABLET 20 MG PO (10:21)
[2024-06-12] MEDS: SACUBITRIL/VALSARTAN 24-26 MG TABLET 1 TAB PO ×2 (10:22→20:48)
[2024-06-12] MEDS: INSULIN GLARGINE (*BKC) 1,000 UNITS/10 ML VIAL 25 UNITS SUB-Q (10:30)
[2024-06-12] MEDS: INSULIN HUMAN LISPRO (*BKC) 1,000 UNITS/10 ML VIAL SUB-Q ×2 (12:10→17:04)
[2024-06-12 13:28] LABS: Glucose Point of Care 256 mg/dl (65-105)
[2024-06-12 16:00] VITALS: BP 178/84; PULSE 80; RESP 18; TEMP 36.1; O2SAT 94
[2024-06-12 17:00] LABS: Glucose Point of Care 244 mg/dl (65-105)
[2024-06-12] MEDS: BUPRENORPHINE TOPICAL (17:03)
[2024-06-12] MEDS: [UNRECOGNIZED DRUG - OTHER] TOPICAL (17:03)
[2024-06-12] MEDS: CYCLOBENZAPRINE HCL 10 MG TABLET PO (17:09)
[2024-06-12] MEDS: ACETAMINOPHEN 325 MG TABLET 650 MG BY MOUTH (17:09)
[2024-06-12 20:47] LABS: Glucose Point of Care 285 mg/dl (65-105)
[2024-06-12 20:48] VITALS: PULSE 91
[2024-06-12] MEDS: SENNA/DOCUSATE SODIUM TABLET 1 TAB PO (20:48)
[2024-06-13] VITALS (7 sets, daily range): BP systolic 125–137; BP diastolic 70–87; PULSE 84–92; RESP 14–16; TEMP 36–36.7; O2SAT 100
[2024-06-13] MEDS: oxyCODONE HCL (*CRX) 5 MG TAB IR 10 MG PO ×4 (03:08→19:48)
--- NOTE | 2024-06-13 03:11 | PC.NURSE ---
Pt c/o right hip/leg pain and lower back pain. Pt given roxicodone 10 mg PO to relieve c/o pain.
[2024-06-13] MEDS: CYCLOBENZAPRINE HCL 10 MG TABLET PO ×2 (05:39→17:19)
[2024-06-13] MEDS: LEVOTHYROXINE SODIUM 100 MCG, LEVOTHYROXINE SODIUM 25 MCG 125 MCG PO (05:39)
[2024-06-13] MEDS: ACETAMINOPHEN 325 MG TABLET 650 MG BY MOUTH ×2 (05:39→17:20)
[2024-06-13] MEDS: SENNA/DOCUSATE SODIUM TABLET 1 TAB PO ×2 (05:39→20:04)
[2024-06-13 08:27] LABS: Glucose Point of Care 221 mg/dl (65-105)
[2024-06-13] MEDS: SACUBITRIL/VALSARTAN 24-26 MG TABLET 1 TAB PO ×2 (09:27→20:01)
[2024-06-13] MEDS: ATORVASTATIN 10 MG TABLET 20 MG PO (09:27)
[2024-06-13] MEDS: AMIODARONE HCL 200 MG TABLET PO (09:28)
[2024-06-13] MEDS: rOPINIRole HCL 0.25 MG TABLET PO (09:28)
[2024-06-13] MEDS: APIXABAN 2.5 MG TABLET 5 MG BY MOUTH ×2 (09:28→20:04)
[2024-06-13] MEDS: DULoxetine HCL 30 MG CAPSULE.DR 60 MG PO (09:28)
[2024-06-13] MEDS: FUROSEMIDE 20 MG TABLET PO (09:29)
[2024-06-13] MEDS: PANTOPRAZOLE 40 MG TABLET PO ×2 (09:29→16:35)
[2024-06-13] MEDS: POTASSIUM CHLORIDE 20 MEQ ER TABLET PO (09:29)
[2024-06-13] MEDS: MIDODRINE HCL 2.5 MG TABLET 10 MG BY MOUTH ×3 (09:29→16:32)
[2024-06-13] MEDS: CALCIUM/VITAMIN D 250 MG/3.125 MCG (125 I.U.) TABLET 2 TABLET PO (09:29)
[2024-06-13] MEDS: polyethylene glycoL 3350 17 GM POWD.PACK PO (09:30)
[2024-06-13] MEDS: METOPROLOL TARTRATE 12.5 MG TABLET PO ×2 (09:30→20:01)
[2024-06-13] MEDS: INSULIN HUMAN LISPRO (*BKC) 1,000 UNITS/10 ML VIAL SUB-Q ×3 (09:39→17:05)
[2024-06-13] MEDS: INSULIN GLARGINE (*BKC) 1,000 UNITS/10 ML VIAL 25 UNITS SUB-Q (09:40)
[2024-06-13] MEDS: ONDANSETRON HCL ODT 4 MG TABLET PO (11:40)
[2024-06-13 11:51] LABS: Glucose Point of Care 226 mg/dl (65-105)
[2024-06-13 16:37] LABS: Glucose Point of Care 208 mg/dl (65-105)
--- NOTE | 2024-06-13 17:39 | PC.NURSE ---
Patient sitting on side of bed eatig supper. Pleasant and cooperative with care. Watching TV and coloring in book. C/O back pain and right hip pain.
[2024-06-13 20:08] LABS: Glucose Point of Care 299 mg/dl (65-105)
--- NOTE | 2024-06-13 21:21 | PC.NURSE ---
Patient ambulated to bathroom and back to bed x2. Sits on side of bed to color in her book and feed self supper. No s/s of hypo/hypoglycemia. O2@2lpm/NC. No resp. distress. SR up x2. Call light and belongings within reach.
[2024-06-14] VITALS (8 sets, daily range): BP systolic 134–138; BP diastolic 74–86; PULSE 65–94; RESP 14–16; TEMP 35.9–36.4; O2SAT 100
[2024-06-14] MEDS: ACETAMINOPHEN 325 MG TABLET 650 MG BY MOUTH ×2 (00:15→19:19)
[2024-06-14] MEDS: CYCLOBENZAPRINE HCL 10 MG TABLET PO ×2 (00:15→19:19)
[2024-06-14] MEDS: LEVOTHYROXINE SODIUM 100 MCG, LEVOTHYROXINE SODIUM 25 MCG 125 MCG PO (05:49)
[2024-06-14] MEDS: oxyCODONE HCL (*CRX) 5 MG TAB IR 10 MG PO ×5 (05:49→21:09)
[2024-06-14 07:49] LABS: Glucose Point of Care 182 mg/dl (65-105)
--- NOTE | 2024-06-14 08:01 | P.PNIM_ITS ---
Progress Note: A&P Assessment and Plan (1) Fracture of femoral neck, right: Code(s): S72.001A - Fracture of unspecified part of neck of right femur, initial encounter for closed fracture Status: Acute Assessment and Plan: * S/P right hip percutaneous pinning on 05/15 * toe touch weight bearing * PT/OT consulted * DVT prophylaxis with Eliquis which she already takes for a-fib * Pain control with oxycodone and Flexeril prn * Patient has follow up appointment with her surgeon on 06/10/24 (2) Chronic hypoxemic respiratory failure: Code(s): J96.11 - Chronic respiratory failure with hypoxia Status: Acute Assessment and Plan: * Chronically on 2-3 L NC * Stable (3) Diabetes type 2, uncontrolled: Status: Acute Assessment and Plan: * Accu-Cheks a.c. HS * sliding scale insulin * resume patient's home long-acting increased back to 30units * Diabetic diet * Optimize Bradly inhibitors and statins. * Watch for hypoglycemia/hypoglycemic protocol ordered * Patient had 1 episode of hypoglycemia scheduled lispro 7 units discontinued and metformin was placed on hold in long acting decreased by 5 units * patient is now running over the resume patient on her 30 units and restarted metformin but at half the dose (4) Atrial fibrillation: Code(s): I48.91 - Unspecified atrial fibrillation Status: Chronic Assessment and Plan: * Continue amiodarone and Eliquis * as reported earlier patient had episode of nosebleed aspirin and Eliquis was placed on hold both resumed at this time with no further complications * initial hemoglobin 8 follow-up labs pending (5) Iron deficiency anemia: Code(s): D50.9 - Iron deficiency anemia, unspecified Status: Acute Assessment and Plan: * Hgb 8.1 POA * added Iron supplement * F/U Hgb pending * monitor stool on eliquis and ASA recent hospitalization for possibly GI bleed no EGD negative but no colonoscopy done Plan Code status: Full code per patient DVT prophylaxis: eliquis Stress ulcer prophylaxis: Protonix 40 daily PT/OT notes: SWING Disposition: patient continues admission to [facility] bed for continued physical therapy and occupational therapy Time Spent With Patient Time with patient: 15 - 25 minutes Subjective Date/time seen: 06/14/24 08:01 Interval history: Patient is a 58-year-old female who was admitted to start in swing bed for further physical and occupational therapy due to deconditioned state and weakness following a right femoral neck fracture. 06/14/24: Assumed Care Patient reports she is still weak and tired but otherwise no current complaints and pain is well controlled. Patient denied any further episodes of nose bleed and denied blood in stool will need to monitor closely. Review of Systems Review of Systems: All systems reviewed & are unremarkable except as noted in HPI and below Exam Narrative: Physical Exam: * GENERAL: Jacqui
--- NOTE | 2024-06-14 08:01 | PM.IMPN ---
Progress Note: A&P Assessment and Plan (1) Fracture of femoral neck, right: Code(s): S72.001A - Fracture of unspecified part of neck of right femur, initial encounter for closed fracture Status: Acute Assessment and Plan: S/P right hip percutaneous pinning on 05/15 toe touch weight bearing PT/OT consulted DVT prophylaxis with Eliquis which she already takes for a-fib Pain control with oxycodone and Flexeril prn Patient has follow up appointment with her surgeon on 06/10/24 (2) Chronic hypoxemic respiratory failure: Code(s): J96.11 - Chronic respiratory failure with hypoxia Status: Acute Assessment and Plan: Chronically on 2-3 L NC Stable (3) Diabetes type 2, uncontrolled: Status: Acute Assessment and Plan: Accu-Cheks a.c. HS sliding scale insulin resume patient's home long-acting increased back to 30units Diabetic diet Optimize Bradly inhibitors and statins. Watch for hypoglycemia/hypoglycemic protocol ordered Patient had 1 episode of hypoglycemia scheduled lispro 7 units discontinued and metformin was placed on hold in long acting decreased by 5 units patient is now running over the 200s resume patient on her 30 units and restarted metformin but at half the dose (4) Atrial fibrillation: Code(s): I48.91 - Unspecified atrial fibrillation Status: Chronic Assessment and Plan: Continue amiodarone and Eliquis as reported earlier patient had episode of nosebleed aspirin and Eliquis was placed on hold both resumed at this time with no further complications initial hemoglobin 8 follow-up labs pending (5) Iron deficiency anemia: Code(s): D50.9 - Iron deficiency anemia, unspecified Status: Acute Assessment and Plan: Hgb 8.1 POA added Iron supplement F/U Hgb pending monitor stool on eliquis and ASA recent hospitalization for possibly GI bleed no EGD negative but no colonoscopy done Plan Code status: Full code per patient DVT prophylaxis: eliquis Stress ulcer prophylaxis: Protonix 40 daily PT/OT notes: SWING Disposition: patient continues admission to [facility] bed for continued physical therapy and occupational therapy Time Spent With Patient Time with patient: 15 - 25 minutes Subjective Date/time seen: 06/14/24 08:01 Interval history: Patient is a 58-year-old female who was admitted to [place] in swing bed for further physical and occupational therapy due to deconditioned state and weakness following a right femoral neck fracture. 06/14/24: Assumed Care Patient reports she is still weak and tired but otherwise no current complaints and pain is well controlled. Patient denied any further episodes of nose bleed and denied blood in stool will need to monitor closely. Review of Systems Review of Systems: All systems reviewed & are unremarkable except as noted in HPI and below Exam Narrative: Physical Exam: GENERAL: Alert and oriented x 3 female. No acute distress. HEENT: Moist mucous membranes. LUNGS: Clear to auscultation bilaterally. No accessory muscle use. CARDIOVASCULAR: Regular rate and rhythm. No murmur. ABDOMEN: Soft, non tenderness and non-distended. No palpable masses. EXTREMITIES: No edema. Non-tender SKIN: No rashes or lesions. Skin warm, dry. NEUROLOGIC: No focal neurological deficits. PSYCHIATRIC: Appropriate mood and affect. Objective Data Vital Signs Vital Signs: Vital Signs - 24 hr 06/13/24 09:28 06/13/24 09:30 06/13/24 16:00 Temperature 96.8 F L Pulse Rate 92 92 84 Respiratory Rate 15 Blood Pressure 125/70 Pulse Oximetry 100 Oxygen Delivery Nasal Cannula Oxygen Flow Rate 3 06/13/24 20:01 06/14/24 00:00 Temperature 97.6 F Pulse Rate 90 90 Respiratory Rate 16 Blood Pressure 138/86 Pulse Oximetry 100 Oxygen Delivery Nasal Cannula Oxygen Flow Rate 3 Intak
[2024-06-14 08:29] LABS: Hematocrit 36.3 % (35.0-49.0); Hemoglobin 9.5 g/dL (12.0-15.0); Mean Corpuscular HGB Conc 26.2 g/dL (32-36); Mean Corpuscular Hemoglobin 19.7 pg (27.0-31.0); Mean Corpuscular Volume 75.2 fL (78.0-102.0); Mean Platelet Volume 9.9 fl (9.2-11.8); Platelet Count Result 436 K/mm3 (150-420); Red Blood Count 4.83 M/mm3 (4.20-5.40); Red Cell Distribution Width 23.8 % (11.6-14.4); White Blood Count 7.1 K/mm3 (4.8-10.8)
[2024-06-14 08:37] LABS: Alanine Aminotransferase 35 U/L (14-59); Alkaline Phosphatase 128 U/L (46-116); Anion Gap 6 mmol/L (4-12); Bilirubin,Total 0.5 mg/dL (0.00-1.00); Blood Urea Nitrogen 16 mg/dL (7-18); Carbon Dioxide 35 mmol/L (21-32); Chloride 98 mmol/L (98-108); Estimated CRCL calculation 70 ml/min; Estimated Glomerular Filt Rate > 60; Glucose 179 mg/dL (70-99); Osmolality Calculated 293 mOsm/kg (285-295); Potassium 4.3 mmol/L (3.5-5.1); Sodium 139 mmol/L (136-145); Total Protein 7.5 g/dL (6.4-8.2)
[2024-06-14 08:46] LABS: Calcium 9.1 mg/dL (8.5-10.1)
[2024-06-14 09:01] LABS: Aspartate Amino Transferase 13 U/L (15-37)
[2024-06-14] MEDS: POTASSIUM CHLORIDE 20 MEQ ER TABLET PO (09:01)
[2024-06-14] MEDS: rOPINIRole HCL 0.25 MG TABLET PO (09:01)
[2024-06-14] MEDS: METOPROLOL TARTRATE 12.5 MG TABLET PO ×2 (09:01→21:09)
[2024-06-14] MEDS: polyethylene glycoL 3350 17 GM POWD.PACK PO (09:01)
[2024-06-14] MEDS: AMIODARONE HCL 200 MG TABLET PO (09:02)
[2024-06-14] MEDS: metFORMIN HCL 500 MG TABLET PO (09:02)
[2024-06-14] MEDS: CALCIUM/VITAMIN D 250 MG/3.125 MCG (125 I.U.) TABLET 2 TABLET PO (09:03)
[2024-06-14] MEDS: MIDODRINE HCL 2.5 MG TABLET 10 MG BY MOUTH ×3 (09:05→17:03)
[2024-06-14] MEDS: DULoxetine HCL 30 MG CAPSULE.DR 60 MG PO (09:05)
[2024-06-14] MEDS: APIXABAN 2.5 MG TABLET 5 MG BY MOUTH ×2 (09:05→21:09)
[2024-06-14] MEDS: SACUBITRIL/VALSARTAN 24-26 MG TABLET 1 TAB PO ×2 (09:06→21:09)
[2024-06-14] MEDS: PANTOPRAZOLE 40 MG TABLET PO ×2 (09:06→17:12)
[2024-06-14] MEDS: ASPIRIN 81 MG CHEWABLE TABLET PO (09:06)
[2024-06-14] MEDS: FUROSEMIDE 20 MG TABLET PO (09:06)
[2024-06-14] MEDS: ATORVASTATIN 10 MG TABLET 20 MG PO (09:06)
[2024-06-14] MEDS: INSULIN GLARGINE (*BKC) 1,000 UNITS/10 ML VIAL 30 UNITS SUB-Q (09:08)
[2024-06-14 11:12] LABS: Glucose Point of Care 299 mg/dl (65-105)
[2024-06-14] MEDS: FERROUS SULFATE 325 MG TABLET DR PO ×2 (12:36→17:02)
[2024-06-14] MEDS: INSULIN HUMAN LISPRO (*BKC) 1,000 UNITS/10 ML VIAL SUB-Q ×3 (12:39→17:05)
[2024-06-14] MEDS: ONDANSETRON HCL ODT 4 MG TABLET PO (16:04)
[2024-06-14 16:54] LABS: Glucose Point of Care 236 mg/dl (65-105)
[2024-06-14 19:24] LABS: Glucose Point of Care 163 mg/dl (65-105)
[2024-06-14 20:51] LABS: Add Urine Microscopic? YES; Appearance Urine Clear (Clear); Bilirubin Urine Negative (Negative); Blood Urine Negative (Negative); Color Urine Yellow (Yellow); Glucose Urine UA Negative (Negative); Ketones Urine 1+ (Negative); Leukocyte Esterase Ur 1+ LEU/UL (Negative); Nitrate Urine Positive (Negative); Protein Urine Trace (Negative); Specific Grav Ur 1.025 (1.010-1.020); Urobilinogen Urine 0.2 mg/dL (0.2-1.0); pH Urine 5.5 (5.0-8.0)
[2024-06-14 20:57] LABS: Bacteria Urine 3+ /hpf; RBC Urine 0-2 /hpf (0-2); Squamous Epithelial Cell Urine Few /hpf (Few); WBC Urine 21-30 /hpf (0-3)
[2024-06-14] MEDS: SENNA/DOCUSATE SODIUM TABLET 1 TAB PO (21:09)
[2024-06-15] VITALS (9 sets, daily range): BP systolic 102–124; BP diastolic 64–83; PULSE 67–90; RESP 16–17; TEMP 36–36.4; O2SAT 99–100
[2024-06-15] MEDS: LEVOTHYROXINE SODIUM 100 MCG, LEVOTHYROXINE SODIUM 25 MCG 125 MCG PO (06:29)
[2024-06-15] MEDS: oxyCODONE HCL (*CRX) 5 MG TAB IR 10 MG PO ×4 (06:29→21:07)
[2024-06-15 07:48] LABS: Glucose Point of Care 172 mg/dl (65-105)
[2024-06-15] MEDS: polyethylene glycoL 3350 17 GM POWD.PACK PO (08:39)
[2024-06-15] MEDS: CALCIUM/VITAMIN D 250 MG/3.125 MCG (125 I.U.) TABLET 2 TABLET PO (08:40)
[2024-06-15] MEDS: MIDODRINE HCL 2.5 MG TABLET 10 MG BY MOUTH ×3 (08:41→17:08)
[2024-06-15] MEDS: CEPHALEXIN 500 MG CAPSULE PO ×2 (08:41→21:06)
[2024-06-15] MEDS: METOPROLOL TARTRATE 12.5 MG TABLET PO ×2 (08:41→21:07)
[2024-06-15] MEDS: AMIODARONE HCL 200 MG TABLET PO (08:42)
[2024-06-15] MEDS: rOPINIRole HCL 0.25 MG TABLET PO (08:42)
[2024-06-15] MEDS: PANTOPRAZOLE 40 MG TABLET PO ×2 (08:42→17:09)
[2024-06-15] MEDS: POTASSIUM CHLORIDE 20 MEQ ER TABLET PO (08:43)
[2024-06-15] MEDS: SACUBITRIL/VALSARTAN 24-26 MG TABLET 1 TAB PO ×2 (08:43→21:07)
[2024-06-15] MEDS: ASPIRIN 81 MG CHEWABLE TABLET PO (08:43)
[2024-06-15] MEDS: DULoxetine HCL 30 MG CAPSULE.DR 60 MG PO (08:44)
[2024-06-15] MEDS: APIXABAN 2.5 MG TABLET 5 MG BY MOUTH ×2 (08:44→21:06)
[2024-06-15] MEDS: FERROUS SULFATE 325 MG TABLET DR PO ×2 (08:44→17:09)
[2024-06-15] MEDS: FUROSEMIDE 20 MG TABLET PO (08:44)
[2024-06-15] MEDS: metFORMIN HCL 500 MG TABLET PO (08:45)
[2024-06-15] MEDS: ATORVASTATIN 10 MG TABLET 20 MG PO (08:46)
[2024-06-15] MEDS: INSULIN GLARGINE (*BKC) 1,000 UNITS/10 ML VIAL 30 UNITS SUB-Q (08:52)
[2024-06-15] MEDS: ACETAMINOPHEN 325 MG TABLET 650 MG BY MOUTH ×3 (08:53→20:20)
[2024-06-15] MEDS: CYCLOBENZAPRINE HCL 10 MG TABLET PO ×3 (08:53→21:07)
[2024-06-15] MEDS: INSULIN HUMAN LISPRO (*BKC) 1,000 UNITS/10 ML VIAL SUB-Q (11:59)
[2024-06-15 12:00] LABS: Glucose Point of Care 253 mg/dl (65-105)
--- NOTE | 2024-06-15 12:14 | PM.EVENT ---
Event Note Event Note Event Note: Patient had report urinary frequency and burning with urination UA positive for UTI started patient on Keflex pending cultures
[2024-06-15 20:25] LABS: Glucose Point of Care 302 mg/dl (65-105)
[2024-06-15 20:25] LABS: Glucose Point of Care 198 mg/dl (65-105)
[2024-06-15] MEDS: SENNA/DOCUSATE SODIUM TABLET 1 TAB PO (21:07)
[2024-06-16] VITALS (8 sets, daily range): BP systolic 117; BP diastolic 73; PULSE 87–94; RESP 16; TEMP 36.1; O2SAT 100
[2024-06-16] MEDS: oxyCODONE HCL (*CRX) 5 MG TAB IR 10 MG PO ×5 (01:17→20:24)
[2024-06-16] MEDS: LEVOTHYROXINE SODIUM 100 MCG, LEVOTHYROXINE SODIUM 25 MCG 125 MCG PO (05:52)
[2024-06-16 07:33] LABS: Glucose Point of Care 246 mg/dl (65-105)
[2024-06-16] MEDS: INSULIN HUMAN LISPRO (*BKC) 1,000 UNITS/10 ML VIAL SUB-Q ×2 (08:22→12:04)
[2024-06-16] MEDS: INSULIN GLARGINE (*BKC) 1,000 UNITS/10 ML VIAL 30 UNITS SUB-Q (08:24)
[2024-06-16] MEDS: rOPINIRole HCL 0.25 MG TABLET PO (08:26)
[2024-06-16] MEDS: MIDODRINE HCL 2.5 MG TABLET 10 MG BY MOUTH ×3 (08:26→17:08)
[2024-06-16] MEDS: ATORVASTATIN 10 MG TABLET 20 MG PO (08:27)
[2024-06-16] MEDS: METOPROLOL TARTRATE 12.5 MG TABLET PO ×2 (08:27→20:23)
[2024-06-16] MEDS: CALCIUM/VITAMIN D 250 MG/3.125 MCG (125 I.U.) TABLET 2 TABLET PO (08:28)
[2024-06-16] MEDS: ACETAMINOPHEN 325 MG TABLET 650 MG BY MOUTH (08:28)
[2024-06-16] MEDS: CYCLOBENZAPRINE HCL 10 MG TABLET PO ×2 (08:28→20:23)
[2024-06-16] MEDS: PANTOPRAZOLE 40 MG TABLET PO ×2 (08:29→17:08)
[2024-06-16] MEDS: metFORMIN HCL 500 MG TABLET PO (08:29)
[2024-06-16] MEDS: AMIODARONE HCL 200 MG TABLET PO (08:29)
[2024-06-16] MEDS: APIXABAN 2.5 MG TABLET 5 MG BY MOUTH ×2 (08:30→20:24)
[2024-06-16] MEDS: DULoxetine HCL 30 MG CAPSULE.DR 60 MG PO (08:30)
[2024-06-16] MEDS: SACUBITRIL/VALSARTAN 24-26 MG TABLET 1 TAB PO ×2 (08:30→20:23)
[2024-06-16] MEDS: POTASSIUM CHLORIDE 20 MEQ ER TABLET PO (08:32)
[2024-06-16] MEDS: CEPHALEXIN 500 MG CAPSULE PO ×2 (08:32→20:23)
[2024-06-16] MEDS: FUROSEMIDE 20 MG TABLET PO (08:32)
[2024-06-16] MEDS: ASPIRIN 81 MG CHEWABLE TABLET PO (08:32)
[2024-06-16] MEDS: FERROUS SULFATE 325 MG TABLET DR PO ×2 (08:33→17:09)
[2024-06-16] MEDS: ACIDOPHILUS/BULGARICUS CHEWABLE TABLET 1 TABLET PO ×4 (10:07→20:24)
[2024-06-16 12:04] LABS: Glucose Point of Care 225 mg/dl (65-105)
[2024-06-16 16:34] LABS: Glucose Point of Care 156 mg/dl (65-105)
[2024-06-16] MEDS: polyethylene glycoL 3350 17 GM POWD.PACK PO (20:23)
[2024-06-16] MEDS: SENNA/DOCUSATE SODIUM TABLET 1 TAB PO (20:24)
[2024-06-16 20:29] LABS: Glucose Point of Care 214 mg/dl (65-105)
[2024-06-17] VITALS (8 sets, daily range): BP systolic 131–135; BP diastolic 80–89; PULSE 72–94; RESP 14–17; TEMP 35.8–36.6; O2SAT 100
[2024-06-17] MEDS: oxyCODONE HCL (*CRX) 5 MG TAB IR 10 MG PO ×6 (00:15→21:24)
[2024-06-17] MEDS: LEVOTHYROXINE SODIUM 100 MCG, LEVOTHYROXINE SODIUM 25 MCG 125 MCG PO (05:58)
[2024-06-17 08:02] LABS: Glucose Point of Care 261 mg/dl (65-105)
[2024-06-17] MEDS: metFORMIN HCL 500 MG TABLET PO (08:41)
[2024-06-17] MEDS: ASPIRIN 81 MG CHEWABLE TABLET PO (08:41)
[2024-06-17] MEDS: MIDODRINE HCL 2.5 MG TABLET 10 MG BY MOUTH ×3 (08:41→17:11)
[2024-06-17] MEDS: polyethylene glycoL 3350 17 GM POWD.PACK PO (08:43)
[2024-06-17] MEDS: INSULIN HUMAN LISPRO (*BKC) 1,000 UNITS/10 ML VIAL SUB-Q ×2 (08:43→17:20)
[2024-06-17] MEDS: METOPROLOL TARTRATE 12.5 MG TABLET PO ×2 (09:22→21:23)
[2024-06-17] MEDS: CALCIUM/VITAMIN D 250 MG/3.125 MCG (125 I.U.) TABLET 2 TABLET PO (09:22)
[2024-06-17] MEDS: APIXABAN 2.5 MG TABLET 5 MG BY MOUTH ×2 (09:23→21:23)
[2024-06-17] MEDS: ACIDOPHILUS/BULGARICUS CHEWABLE TABLET 1 TABLET PO ×4 (09:23→21:23)
[2024-06-17] MEDS: ATORVASTATIN 10 MG TABLET 20 MG PO (09:23)
[2024-06-17] MEDS: CEPHALEXIN 500 MG CAPSULE PO ×2 (09:23→21:23)
[2024-06-17] MEDS: AMIODARONE HCL 200 MG TABLET PO (09:23)
[2024-06-17] MEDS: DULoxetine HCL 30 MG CAPSULE.DR 60 MG PO (09:23)
[2024-06-17] MEDS: FUROSEMIDE 20 MG TABLET PO (09:24)
[2024-06-17] MEDS: SACUBITRIL/VALSARTAN 24-26 MG TABLET 1 TAB PO ×2 (09:24→21:23)
[2024-06-17] MEDS: PANTOPRAZOLE 40 MG TABLET PO ×2 (09:24→17:11)
[2024-06-17] MEDS: rOPINIRole HCL 0.25 MG TABLET PO (09:24)
[2024-06-17] MEDS: POTASSIUM CHLORIDE 20 MEQ ER TABLET PO (09:24)
[2024-06-17] MEDS: FERROUS SULFATE 325 MG TABLET DR PO ×2 (09:24→17:11)
[2024-06-17] MEDS: INSULIN GLARGINE (*BKC) 1,000 UNITS/10 ML VIAL 30 UNITS SUB-Q (09:30)
[2024-06-17 12:22] LABS: Glucose Point of Care 175 mg/dl (65-105)
[2024-06-17] MEDS: CYCLOBENZAPRINE HCL 10 MG TABLET PO ×2 (15:13→21:23)
[2024-06-17] MEDS: ACETAMINOPHEN 325 MG TABLET 650 MG BY MOUTH ×2 (15:13→19:44)
[2024-06-17 17:16] LABS: Glucose Point of Care 224 mg/dl (65-105)
[2024-06-17] MEDS: SENNA/DOCUSATE SODIUM TABLET 1 TAB PO (21:23)
[2024-06-17 21:28] LABS: Glucose Point of Care 220 mg/dl (65-105)
[2024-06-18] VITALS: BP 118/81; PULSE 86; RESP 16; TEMP 36.4; O2SAT 100
[2024-06-18] MEDS: oxyCODONE HCL (*CRX) 5 MG TAB IR 10 MG PO ×4 (03:52→22:09)
[2024-06-18 05:30] VITALS: O2SAT 100
[2024-06-18] MEDS: ACETAMINOPHEN 325 MG TABLET 650 MG BY MOUTH ×3 (06:04→19:50)
[2024-06-18] MEDS: LEVOTHYROXINE SODIUM 100 MCG, LEVOTHYROXINE SODIUM 25 MCG 125 MCG PO (06:04)
[2024-06-18] MEDS: CYCLOBENZAPRINE HCL 10 MG TABLET PO ×3 (06:04→19:49)
[2024-06-18 08:00] VITALS: BP 135/60; PULSE 78; PULSE 85; RESP 14; TEMP 36.6; O2SAT 100; O2SAT 98
[2024-06-18 08:23] LABS: Glucose Point of Care 171 mg/dl (65-105)
--- NOTE | 2024-06-18 08:47 | ECG_ITS ---
Test Date: 2024-06-18 09:05:09 Measurements Intervals [place] Rate: 88 P: 45 VT: 141 QRS: -13 QRSD: 94 T: 70 QT: 393 QTc: 476 Interpretive Statements SINUS RHYTHM VOLTAGE CRITERIA FOR LVH [MEETS CRITERIA IN ONE OF: R(aVL), S(V1), R(V5), R(V5/V6)+S(V1)] NONSPECIFIC T-WAVE ABNORMALITY ECG No previous ECG available for comparison Electronically Signed On 06-19-2024 13:44:29 CDT by Willian Bennett M.D.
[2024-06-18 09:59] VITALS: PULSE 77
[2024-06-18] MEDS: METOPROLOL TARTRATE 12.5 MG TABLET PO ×2 (09:59→21:59)
[2024-06-18] MEDS: ATORVASTATIN 10 MG TABLET 20 MG PO (09:59)
[2024-06-18] MEDS: SACUBITRIL/VALSARTAN 24-26 MG TABLET 1 TAB PO ×2 (10:00→21:59)
[2024-06-18] MEDS: rOPINIRole HCL 0.25 MG TABLET PO (10:00)
[2024-06-18] MEDS: FUROSEMIDE 20 MG TABLET PO (10:00)
[2024-06-18] MEDS: POTASSIUM CHLORIDE 20 MEQ ER TABLET PO (10:00)
[2024-06-18] MEDS: ACIDOPHILUS/BULGARICUS CHEWABLE TABLET 1 TABLET PO ×4 (10:00→21:59)
[2024-06-18] MEDS: CALCIUM/VITAMIN D 250 MG/3.125 MCG (125 I.U.) TABLET 2 TABLET PO (10:00)
[2024-06-18 10:01] VITALS: PULSE 77
[2024-06-18] MEDS: DULoxetine HCL 30 MG CAPSULE.DR 60 MG PO (10:01)
[2024-06-18] MEDS: AMIODARONE HCL 200 MG TABLET PO (10:01)
[2024-06-18] MEDS: PANTOPRAZOLE 40 MG TABLET PO ×2 (10:01→17:56)
[2024-06-18] MEDS: MIDODRINE HCL 2.5 MG TABLET 10 MG BY MOUTH ×3 (10:01→17:56)
[2024-06-18] MEDS: FERROUS SULFATE 325 MG TABLET DR PO ×2 (10:02→17:56)
[2024-06-18] MEDS: metFORMIN HCL 500 MG TABLET PO (10:02)
[2024-06-18] MEDS: ASPIRIN 81 MG CHEWABLE TABLET PO (10:02)
[2024-06-18] MEDS: APIXABAN 2.5 MG TABLET 5 MG BY MOUTH ×2 (10:02→21:59)
[2024-06-18] MEDS: INSULIN GLARGINE (*BKC) 1,000 UNITS/10 ML VIAL 30 UNITS SUB-Q (10:07)
[2024-06-18 11:55] LABS: Glucose Point of Care 362 mg/dl (65-105)
[2024-06-18] MEDS: ERTAPENEM 1 GM/NS 50 ML 1 GM/50 ML BAG IVPB (12:00)
--- NOTE | 2024-06-18 12:39 | P.PNCROSS_ITS ---
Event Note Event Note Event Note: Urine with Klebs [employer] opt to use ertapenem IV daily due to sensitivity r eport some concern with p.o. Levaquin patient recently started on amiodarone. EKG QTC showed 438. Patient will need 7 doses.
[2024-06-18] MEDS: ONDANSETRON HCL ODT 4 MG TABLET PO (12:43)
[2024-06-18] MEDS: INSULIN HUMAN LISPRO (*BKC) 1,000 UNITS/10 ML VIAL SUB-Q (12:50)
[2024-06-18 16:35] VITALS: BP 128/82; PULSE 81; RESP 18; TEMP 35.9; O2SAT 100
[2024-06-18 16:54] LABS: Glucose Point of Care 136 mg/dl (65-105)
[2024-06-18] MEDS: SENNA/DOCUSATE SODIUM TABLET 1 TAB PO (21:59)
[2024-06-18 22:03] LABS: Glucose Point of Care 223 mg/dl (65-105)
[2024-06-19] VITALS (9 sets, daily range): BP systolic 108–129; BP diastolic 69–78; PULSE 70–84; RESP 16–20; TEMP 35.9–36.6; O2SAT 98–100
[2024-06-19] MEDS: oxyCODONE HCL (*CRX) 5 MG TAB IR 10 MG PO ×6 (02:54→23:49)
[2024-06-19] MEDS: LEVOTHYROXINE SODIUM 100 MCG, LEVOTHYROXINE SODIUM 25 MCG 125 MCG PO (06:53)
[2024-06-19 07:16] LABS: Glucose Point of Care 167 mg/dl (65-105)
[2024-06-19] MEDS: CALCIUM/VITAMIN D 250 MG/3.125 MCG (125 I.U.) TABLET 2 TABLET PO (08:13)
[2024-06-19] MEDS: POTASSIUM CHLORIDE 20 MEQ ER TABLET PO (08:13)
[2024-06-19] MEDS: CYCLOBENZAPRINE HCL 10 MG TABLET PO ×3 (08:13→20:48)
[2024-06-19] MEDS: SACUBITRIL/VALSARTAN 24-26 MG TABLET 1 TAB PO ×2 (08:13→20:48)
[2024-06-19] MEDS: DULoxetine HCL 30 MG CAPSULE.DR 60 MG PO (08:13)
[2024-06-19] MEDS: rOPINIRole HCL 0.25 MG TABLET PO (08:14)
[2024-06-19] MEDS: MIDODRINE HCL 2.5 MG TABLET 10 MG BY MOUTH ×3 (08:14→17:12)
[2024-06-19] MEDS: FUROSEMIDE 20 MG TABLET PO (08:14)
[2024-06-19] MEDS: METOPROLOL TARTRATE 12.5 MG TABLET PO ×2 (08:14→20:49)
[2024-06-19] MEDS: ACIDOPHILUS/BULGARICUS CHEWABLE TABLET 1 TABLET PO ×4 (08:14→20:49)
[2024-06-19] MEDS: FERROUS SULFATE 325 MG TABLET DR PO ×2 (08:14→17:12)
[2024-06-19] MEDS: AMIODARONE HCL 200 MG TABLET PO (08:14)
[2024-06-19] MEDS: ASPIRIN 81 MG CHEWABLE TABLET PO (08:14)
[2024-06-19] MEDS: metFORMIN HCL 500 MG TABLET PO (08:14)
[2024-06-19] MEDS: ATORVASTATIN 10 MG TABLET 20 MG PO (08:14)
[2024-06-19] MEDS: APIXABAN 2.5 MG TABLET 5 MG BY MOUTH ×2 (08:14→20:48)
[2024-06-19] MEDS: PANTOPRAZOLE 40 MG TABLET PO ×2 (08:14→17:13)
[2024-06-19] MEDS: INSULIN GLARGINE (*BKC) 1,000 UNITS/10 ML VIAL 30 UNITS SUB-Q (08:19)
--- NOTE | 2024-06-19 08:58 | P.PNIM_ITS ---
Progress Note: A&P Assessment and Plan (1) Fracture of femoral neck, right: Code(s): S72.001A - Fracture of unspecified part of neck of right femur, initial encounter for closed fracture Status: Acute Assessment and Plan: 06/19/24: * patient sustained a fall fracturing her right femoral neck. She underwent right hip percutaneous pinning on 05/15/2024 a [facility]. * Her 1st follow-up appointment was on 06/10/2024 where she became 50% weight- bearing as tolerated on the right lower extremity * continue with PT and OT * continue DVT prophylaxis with Eliquis * continue pain control * next follow-up appointment is on 07/10/2024 with Orthopedic surgeon * care conference plan for 06/20/24 (2) Acute UTI: Code(s): N39.0 - Urinary tract infection, site not specified Status: Acute Assessment and Plan: 06/19/24: * patient started complaining of urinary frequency with pain and burning with urination on 06/14/2024 * a UA was obtained and showed a urine specific gravity of 1.025, trace urine protein, 1+ urine ketone, positive nitrate, 1+ leukocyte, 21-30 urine WBC, 3+ urine bacteria. * Urine culture was obtained and shown Kelbs aerogenes. * Patient was initially on Keflex and due to list of allergies, culture sensitivities, and concerns with use of Levaquin and Cipro, it was decided to start ertapenem per Infectious disease pharmacist. Last dose will be on June 24. (3) Chronic hypoxemic respiratory failure: Code(s): J96.11 - Chronic respiratory failure with hypoxia Status: Acute Assessment and Plan: 06/19/24: * Chronically on 2-3 L NC * Stable (4) Diabetes type 2, uncontrolled: Status: Acute Assessment and Plan: 06/19/24: * Blood sugars ranging 137 to 223 * Hgb A1C 7.9 on 09/03/2022 * Hgb A1C 6.8 today * Accu checks AC/HS * will increase Lantus to 30 units tonight * continue to hold metformin * moderate dose SSI ordered * hypoglycemic protocol in place * Diabetic diet ordered (5) Atrial fibrillation: Code(s): I48.91 - Unspecified atrial fibrillation Status: Chronic Assessment and Plan: 06/19/24: * Continue amiodarone and Eliquis * Patient had episode of nosebleed on 06/08/24 aspirin and Eliquis was placed on hold and nursing applied tampon which was removed the next day, no new signs of active bleeding seen. * Eliquis was resumed * initial hemoglobin 8 * Today Hgb 8.0, stable (6) Iron deficiency anemia: Code(s): D50.9 - Iron deficiency anemia, unspecified Status: Acute Assessment and Plan: 06/19/24: * Hgb 8.1 on initial presentation * Continue Iron supplement * Hgb today 8.0 * continue to monitor stool for occult blood, currently on eliquis and ASA with recent hospitalization for GI bleed, EGD negative but no colonoscopy done Time Spent With Patient Time with patient: 25 - 35 minutes Subjective Date/time seen: 06/19/24 08:58 Interval history: Interval history: This is a 58-year-old female presented to [facility] program 06/05/2024 for continued rehab needs. Patient initially presented to [facility] with complaints of GI bleed and sustained a fall And sustained a right femoral neck fracture which she underwent right hip percutaneous pinning on 05/15/2024. She was discharged from [facility] to [facility] for rehab and then came to [facility] program for additional PT and OT as she continued to have weakness and difficulty with transfer
--- NOTE | 2024-06-19 08:58 | PM.IMPN ---
Progress Note: A&P Assessment and Plan (1) Fracture of femoral neck, right: Code(s): S72.001A - Fracture of unspecified part of neck of right femur, initial encounter for closed fracture Status: Acute Assessment and Plan: 06/19/24: patient sustained a fall fracturing her right femoral neck. She underwent right hip percutaneous pinning on 05/15/2024 a [facility] [place]. Her 1st follow-up appointment was on 06/10/2024 where she became 50% weight-bearing as tolerated on the right lower extremity continue with PT and OT continue DVT prophylaxis with Eliquis continue pain control next follow-up appointment is on 07/10/2024 with Orthopedic surgeon care conference plan for 06/20/24 (2) Acute UTI: Code(s): N39.0 - Urinary tract infection, site not specified Status: Acute Assessment and Plan: 06/19/24: patient started complaining of urinary frequency with pain and burning with urination on 06/14/2024 a UA was obtained and showed a urine specific gravity of 1.025, trace urine protein, 1+ urine ketone, positive nitrate, 1+ leukocyte, 21-30 urine WBC, 3+ urine bacteria. Urine culture was obtained and shown Kelbs aerogenes. Patient was initially on Keflex and due to list of allergies, culture sensitivities, and concerns with use of Levaquin and Cipro, it was decided to start ertapenem per Infectious disease pharmacist. Last dose will be on June 24. (3) Chronic hypoxemic respiratory failure: Code(s): J96.11 - Chronic respiratory failure with hypoxia Status: Acute Assessment and Plan: 06/19/24: Chronically on 2-3 L NC Stable (4) Diabetes type 2, uncontrolled: Status: Acute Assessment and Plan: 06/19/24: Blood sugars ranging 137 to 223 Hgb A1C 7.9 on 09/03/2022 Hgb A1C 6.8 today Accu checks AC/HS will increase Lantus to 30 units tonight continue to hold metformin moderate dose SSI ordered hypoglycemic protocol in place Diabetic diet ordered (5) Atrial fibrillation: Code(s): I48.91 - Unspecified atrial fibrillation Status: Chronic Assessment and Plan: 06/19/24: Continue amiodarone and Eliquis Patient had episode of nosebleed on 06/08/24 aspirin and Eliquis was placed on hold and nursing applied tampon which was removed the next day, no new signs of active bleeding seen. Eliquis was resumed initial hemoglobin 8 Today Hgb 8.0, stable (6) Iron deficiency anemia: Code(s): D50.9 - Iron deficiency anemia, unspecified Status: Acute Assessment and Plan: 06/19/24: Hgb 8.1 on initial presentation Continue Iron supplement Hgb today 8.0 continue to monitor stool for occult blood, currently on eliquis and ASA with recent hospitalization for GI bleed, EGD negative but no colonoscopy done Time Spent With Patient Time with patient: 25 - 35 minutes Subjective Date/time seen: 06/19/24 08:58 Interval history: Interval history: This is a 58-year-old female presented to [facility] 06/05/2024 for continued rehab needs. Patient initially presented to [facility] with complaints of GI bleed and sustained a fall And sustained a right femoral neck fracture which she underwent right hip percutaneous pinning on 05/15/2024. She was discharged from [facility] to [facility] for rehab and then came to [facility] for additional PT and OT as she continued to have weakness and difficulty with transfers. She had a follow-up with ortho on 06/10/2024 and was made 50% weight-bearing as tolerated to the right lower extremity. She has been progressing with therapy here however she does remain a moderate assist on some Activities. Patient is to follow-up with ortho on 07/10/2024 and next review date is on 06/20/24 with her insurance company. on 06/14/2024 patient was reporting urinary frequency and burning with urination. A UA was obtain
--- NOTE | 2024-06-19 09:00 | PC.NURSE ---
Patient Buprenorphine Patch not available to give at this time. Patient to bring med in later today. Will administer when med available.
[2024-06-19] MEDS: ERTAPENEM 1 GM/NS 50 ML 1 GM/50 ML BAG IVPB (09:23)
[2024-06-19 09:46] LABS: Basophils Absolute Auto 0.06 K/mm3 (0.00-0.10); Eosinophils Absolute Auto 0.07 K/mm3 (0.02-0.50); Eosinophils Percent Auto 1.2 % (1.0-6.0); Hematocrit 29.7 % (35.0-49.0); Immature Granulocyte Absolute 0.07 K/mm3 (0.00-0.00); Immature Granulocyte Percent A 1.2 % (0.0-0.0); Lymphocytes Absolute Auto 1.37 K/mm3 (1.10-4.50); Lymphocytes Percent Auto 23.2 % (18.0-42.0); Mean Corpuscular HGB Conc 26.9 g/dL (32-36); Mean Corpuscular Hemoglobin 20.4 pg (27.0-31.0); Mean Corpuscular Volume 75.6 fL (78.0-102.0); Mean Platelet Volume 9.2 fl (9.2-11.8); Monocytes Absolute Auto 0.58 K/mm3 (0.10-0.90); Monocytes Percent Auto 9.8 % (2.0-11.0); Neutrophils Absolute Auto 3.76 K/mm3 (1.70-7.20); Neutrophils Percent Auto 63.6 % (50.0-70.0); Nucleated Red Blood Cells Absolute Auto 0.03 K/mm3 (0.00-0.00); Nucleated Red Blood Cells Perc 0.5 % (0-0.0); Platelet Count Result 348 K/mm3 (150-420); Red Blood Count 3.93 M/mm3 (4.20-5.40); Red Cell Distribution Width 22.9 % (11.6-14.4); White Blood Count 5.9 K/mm3 (4.8-10.8)
[2024-06-19 10:02] LABS: Alanine Aminotransferase 33 U/L (14-59); Albumin Level 3.3 g/dL (3.4-5.0); Alkaline Phosphatase 87 U/L (46-116); Anion Gap 6 mmol/L (4-12); Aspartate Amino Transferase < 10 U/L (15-37); Bilirubin,Total 0.4 mg/dL (0.00-1.00); Blood Urea Nitrogen 16 mg/dL (7-18); Calcium 8.7 mg/dL (8.5-10.1); Carbon Dioxide 34 mmol/L (21-32); Chloride 100 mmol/L (98-108); Estimated CRCL calculation 54 ml/min; Estimated Glomerular Filt Rate > 60; Glucose 268 mg/dL (70-99); Osmolality Calculated 300 mOsm/kg (285-295); Potassium 4.3 mmol/L (3.5-5.1); Sodium 140 mmol/L (136-145); Total Protein 5.8 g/dL (6.4-8.2)
[2024-06-19 10:11] LABS: Hemoglobin A1C 6.8 % (<5.7)
[2024-06-19 11:16] LABS: Glucose Point of Care 259 mg/dl (65-105)
[2024-06-19] MEDS: INSULIN HUMAN LISPRO (*BKC) 1,000 UNITS/10 ML VIAL SUB-Q (12:08)
[2024-06-19] MEDS: [UNRECOGNIZED DRUG - OTHER] TOPICAL (13:23)
[2024-06-19] MEDS: BUPRENORPHINE TOPICAL (13:23)
[2024-06-19] MEDS: ACETAMINOPHEN 325 MG TABLET 650 MG BY MOUTH (14:30)
[2024-06-19 16:15] LABS: Glucose Point of Care 161 mg/dl (65-105)
[2024-06-19] MEDS: [UNRECOGNIZED DRUG - OTHER] PO (18:26)
[2024-06-19] MEDS: RIZATRIPTAN 10 MG PO (18:26)
[2024-06-19] MEDS: SENNA/DOCUSATE SODIUM TABLET 1 TAB PO (20:48)
[2024-06-19 20:50] LABS: Glucose Point of Care 223 mg/dl (65-105)
--- NOTE | 2024-06-19 22:50 | PC.NURSE ---
assumed care. report received from gamaliel caban
--- NOTE | 2024-06-19 22:58 | PC.NURSE ---
report to akash riojas rn. all questions answered.
--- NOTE | 2024-06-19 23:50 | PC.NURSE ---
patient requested pain medication for her lower back and her hip pain. given. lights turned off. call light in reach. door closed.
[2024-06-20] VITALS (7 sets, daily range): BP systolic 117–134; BP diastolic 76–80; PULSE 82–101; RESP 16–18; TEMP 35.7–36.6; O2SAT 99–100
[2024-06-20] MEDS: oxyCODONE HCL (*CRX) 5 MG TAB IR 10 MG PO ×4 (03:47→23:11)
[2024-06-20] MEDS: LEVOTHYROXINE SODIUM 100 MCG, LEVOTHYROXINE SODIUM 25 MCG 125 MCG PO (06:07)
[2024-06-20] MEDS: ACETAMINOPHEN 325 MG TABLET 650 MG BY MOUTH ×3 (06:10→21:11)
[2024-06-20] MEDS: CYCLOBENZAPRINE HCL 10 MG TABLET PO ×3 (06:11→21:13)
[2024-06-20] MEDS: INSULIN HUMAN LISPRO (*BKC) 1,000 UNITS/10 ML VIAL SUB-Q (08:02)
[2024-06-20] MEDS: INSULIN GLARGINE (*BKC) 1,000 UNITS/10 ML VIAL 30 UNITS SUB-Q (08:02)
[2024-06-20] MEDS: metFORMIN HCL 500 MG TABLET PO (08:03)
[2024-06-20 08:48] LABS: Glucose Point of Care 356 mg/dl (65-105)
[2024-06-20] MEDS: CALCIUM/VITAMIN D 250 MG/3.125 MCG (125 I.U.) TABLET 2 TABLET PO (09:03)
[2024-06-20] MEDS: PANTOPRAZOLE 40 MG TABLET PO ×2 (09:04→17:19)
[2024-06-20] MEDS: METOPROLOL TARTRATE 12.5 MG TABLET PO ×2 (09:04→21:13)
[2024-06-20] MEDS: MIDODRINE HCL 2.5 MG TABLET 10 MG BY MOUTH ×3 (09:04→17:18)
[2024-06-20] MEDS: APIXABAN 2.5 MG TABLET 5 MG BY MOUTH ×2 (09:04→21:17)
[2024-06-20] MEDS: POTASSIUM CHLORIDE 20 MEQ ER TABLET PO (09:04)
[2024-06-20] MEDS: DULoxetine HCL 30 MG CAPSULE.DR 60 MG PO (09:05)
[2024-06-20] MEDS: ACIDOPHILUS/BULGARICUS CHEWABLE TABLET 1 TABLET PO ×4 (09:05→21:13)
[2024-06-20] MEDS: ATORVASTATIN 10 MG TABLET 20 MG PO (09:06)
[2024-06-20] MEDS: rOPINIRole HCL 0.25 MG TABLET PO (09:06)
[2024-06-20] MEDS: SACUBITRIL/VALSARTAN 24-26 MG TABLET 1 TAB PO ×2 (09:06→21:13)
[2024-06-20] MEDS: AMIODARONE HCL 200 MG TABLET PO (09:06)
[2024-06-20] MEDS: FERROUS SULFATE 325 MG TABLET DR PO ×2 (09:06→17:20)
[2024-06-20] MEDS: ASPIRIN 81 MG CHEWABLE TABLET PO (09:06)
[2024-06-20] MEDS: FUROSEMIDE 20 MG TABLET PO (09:06)
[2024-06-20] MEDS: ERTAPENEM 1 GM/NS 50 ML 1 GM/50 ML BAG IVPB (10:48)
[2024-06-20] MEDS: ERGOCALCIFEROL 50,000 UNITS CAPSULE 50000 UNITS PO (10:51)
[2024-06-20] MEDS: ONDANSETRON HCL ODT 4 MG TABLET PO (12:04)
[2024-06-20 12:05] LABS: Glucose Point of Care 144 mg/dl (65-105)
[2024-06-20 17:10] LABS: Glucose Point of Care 175 mg/dl (65-105)
[2024-06-20 21:32] LABS: Glucose Point of Care 271 mg/dl (65-105)
[2024-06-21] VITALS (7 sets, daily range): BP systolic 113–124; BP diastolic 69–76; PULSE 84–92; RESP 16–18; TEMP 35.7–36.1; O2SAT 99–100
[2024-06-21] MEDS: ACETAMINOPHEN 325 MG TABLET 650 MG BY MOUTH ×3 (01:59→23:19)
[2024-06-21] MEDS: LEVOTHYROXINE SODIUM 100 MCG, LEVOTHYROXINE SODIUM 25 MCG 125 MCG PO (06:23)
[2024-06-21] MEDS: oxyCODONE HCL (*CRX) 5 MG TAB IR 10 MG PO ×4 (06:24→20:47)
[2024-06-21 07:50] LABS: Glucose Point of Care 176 mg/dl (65-105)
[2024-06-21] MEDS: DULoxetine HCL 30 MG CAPSULE.DR 60 MG PO (08:15)
[2024-06-21] MEDS: MIDODRINE HCL 2.5 MG TABLET 10 MG BY MOUTH ×3 (08:15→16:51)
[2024-06-21] MEDS: FERROUS SULFATE 325 MG TABLET DR PO ×2 (08:16→16:52)
[2024-06-21] MEDS: METOPROLOL TARTRATE 12.5 MG TABLET PO ×2 (08:16→20:48)
[2024-06-21] MEDS: POTASSIUM CHLORIDE 20 MEQ ER TABLET PO (08:16)
[2024-06-21] MEDS: ASPIRIN 81 MG CHEWABLE TABLET PO (08:17)
[2024-06-21] MEDS: CALCIUM/VITAMIN D 250 MG/3.125 MCG (125 I.U.) TABLET 2 TABLET PO (08:17)
[2024-06-21] MEDS: PANTOPRAZOLE 40 MG TABLET PO ×2 (08:18→16:52)
[2024-06-21] MEDS: rOPINIRole HCL 0.25 MG TABLET PO (08:18)
[2024-06-21] MEDS: metFORMIN HCL 500 MG TABLET PO (08:18)
[2024-06-21] MEDS: SACUBITRIL/VALSARTAN 24-26 MG TABLET 1 TAB PO ×2 (08:18→20:52)
[2024-06-21] MEDS: ATORVASTATIN 10 MG TABLET 20 MG PO (08:19)
[2024-06-21] MEDS: AMIODARONE HCL 200 MG TABLET PO (08:19)
[2024-06-21] MEDS: ACIDOPHILUS/BULGARICUS CHEWABLE TABLET 1 TABLET PO ×4 (08:19→20:52)
[2024-06-21] MEDS: CYCLOBENZAPRINE HCL 10 MG TABLET PO ×2 (08:20→23:19)
[2024-06-21] MEDS: FUROSEMIDE 20 MG TABLET PO (08:20)
[2024-06-21] MEDS: APIXABAN 2.5 MG TABLET 5 MG BY MOUTH ×2 (08:20→20:48)
[2024-06-21] MEDS: INSULIN GLARGINE (*BKC) 1,000 UNITS/10 ML VIAL 30 UNITS SUB-Q (08:23)
[2024-06-21] MEDS: ERTAPENEM 1 GM/NS 50 ML 1 GM/50 ML BAG IVPB (09:40)
[2024-06-21 11:47] LABS: Glucose Point of Care 199 mg/dl (65-105)
[2024-06-21] MEDS: ONDANSETRON HCL ODT 4 MG TABLET PO (13:59)
[2024-06-21 16:24] LABS: Glucose Point of Care 197 mg/dl (65-105)
[2024-06-21 20:50] LABS: Glucose Point of Care 288 mg/dl (65-105)
[2024-06-21] MEDS: SENNA/DOCUSATE SODIUM TABLET 1 TAB PO (20:52)
[2024-06-22] VITALS (7 sets, daily range): BP systolic 118–132; BP diastolic 79–86; PULSE 84–101; RESP 14–18; TEMP 35.7–36.6; O2SAT 96–100
[2024-06-22] MEDS: oxyCODONE HCL (*CRX) 5 MG TAB IR 10 MG PO ×5 (01:05→19:16)
[2024-06-22] MEDS: ACETAMINOPHEN 325 MG TABLET 650 MG BY MOUTH ×3 (02:58→17:43)
[2024-06-22] MEDS: LEVOTHYROXINE SODIUM 100 MCG, LEVOTHYROXINE SODIUM 25 MCG 125 MCG PO (05:50)
[2024-06-22 08:05] LABS: Glucose Point of Care 205 mg/dl (65-105)
[2024-06-22] MEDS: MIDODRINE HCL 2.5 MG TABLET 10 MG BY MOUTH ×3 (08:57→17:44)
[2024-06-22] MEDS: METOPROLOL TARTRATE 12.5 MG TABLET PO ×2 (08:58→20:37)
[2024-06-22] MEDS: ASPIRIN 81 MG CHEWABLE TABLET PO (08:58)
[2024-06-22] MEDS: CALCIUM/VITAMIN D 250 MG/3.125 MCG (125 I.U.) TABLET 2 TABLET PO (08:58)
[2024-06-22] MEDS: metFORMIN HCL 500 MG TABLET PO (08:58)
[2024-06-22] MEDS: DULoxetine HCL 30 MG CAPSULE.DR 60 MG PO (08:58)
[2024-06-22] MEDS: rOPINIRole HCL 0.25 MG TABLET PO (08:58)
[2024-06-22] MEDS: AMIODARONE HCL 200 MG TABLET PO (08:59)
[2024-06-22] MEDS: PANTOPRAZOLE 40 MG TABLET PO ×2 (08:59→17:44)
[2024-06-22] MEDS: SACUBITRIL/VALSARTAN 24-26 MG TABLET 1 TAB PO ×2 (08:59→20:37)
[2024-06-22] MEDS: FERROUS SULFATE 325 MG TABLET DR PO ×2 (08:59→17:44)
[2024-06-22] MEDS: ACIDOPHILUS/BULGARICUS CHEWABLE TABLET 1 TABLET PO ×3 (08:59→20:37)
[2024-06-22] MEDS: APIXABAN 2.5 MG TABLET 5 MG BY MOUTH ×2 (08:59→20:37)
[2024-06-22] MEDS: FUROSEMIDE 20 MG TABLET PO (08:59)
[2024-06-22] MEDS: POTASSIUM CHLORIDE 20 MEQ ER TABLET PO (09:00)
[2024-06-22] MEDS: ATORVASTATIN 10 MG TABLET 20 MG PO (09:00)
[2024-06-22] MEDS: INSULIN HUMAN LISPRO (*BKC) 1,000 UNITS/10 ML VIAL SUB-Q ×3 (09:01→17:44)
[2024-06-22] MEDS: INSULIN GLARGINE (*BKC) 1,000 UNITS/10 ML VIAL 30 UNITS SUB-Q (09:02)
[2024-06-22] MEDS: ERTAPENEM 1 GM/NS 50 ML 1 GM/50 ML BAG IVPB (10:08)
[2024-06-22] MEDS: CYCLOBENZAPRINE HCL 10 MG TABLET PO ×2 (11:49→17:44)
[2024-06-22 11:52] LABS: Glucose Point of Care 238 mg/dl (65-105)
[2024-06-22 17:00] LABS: Glucose Point of Care 208 mg/dl (65-105)
[2024-06-22 20:49] LABS: Glucose Point of Care 174 mg/dl (65-105)
[2024-06-22] MEDS: SENNA/DOCUSATE SODIUM TABLET 1 TAB PO (20:49)
[2024-06-23] VITALS (8 sets, daily range): BP systolic 115–133; BP diastolic 73–81; PULSE 84–92; RESP 14–18; TEMP 35.7–36.6; O2SAT 95–100
[2024-06-23] MEDS: ONDANSETRON HCL ODT 4 MG TABLET PO (03:29)
[2024-06-23] MEDS: oxyCODONE HCL (*CRX) 5 MG TAB IR 10 MG PO ×4 (03:29→23:37)
[2024-06-23] MEDS: LEVOTHYROXINE SODIUM 100 MCG, LEVOTHYROXINE SODIUM 25 MCG 125 MCG PO (06:06)
[2024-06-23] MEDS: ACETAMINOPHEN 325 MG TABLET 650 MG BY MOUTH ×2 (06:08→20:55)
[2024-06-23] MEDS: CYCLOBENZAPRINE HCL 10 MG TABLET PO ×2 (06:08→20:56)
[2024-06-23 07:53] LABS: Glucose Point of Care 182 mg/dl (65-105)
[2024-06-23] MEDS: MIDODRINE HCL 2.5 MG TABLET 10 MG BY MOUTH ×3 (08:30→18:09)
[2024-06-23] MEDS: ASPIRIN 81 MG CHEWABLE TABLET PO (08:31)
[2024-06-23] MEDS: metFORMIN HCL 500 MG TABLET PO (08:31)
[2024-06-23] MEDS: METOPROLOL TARTRATE 12.5 MG TABLET PO ×2 (09:14→20:56)
[2024-06-23] MEDS: rOPINIRole HCL 0.25 MG TABLET PO (09:15)
[2024-06-23] MEDS: CALCIUM/VITAMIN D 250 MG/3.125 MCG (125 I.U.) TABLET 2 TABLET PO (09:15)
[2024-06-23] MEDS: ATORVASTATIN 10 MG TABLET 20 MG PO (09:15)
[2024-06-23] MEDS: SACUBITRIL/VALSARTAN 24-26 MG TABLET 1 TAB PO ×2 (09:15→20:56)
[2024-06-23] MEDS: DULoxetine HCL 30 MG CAPSULE.DR 60 MG PO (09:15)
[2024-06-23] MEDS: POTASSIUM CHLORIDE 20 MEQ ER TABLET PO (09:15)
[2024-06-23] MEDS: FERROUS SULFATE 325 MG TABLET DR PO ×2 (09:15→18:10)
[2024-06-23] MEDS: AMIODARONE HCL 200 MG TABLET PO (09:16)
[2024-06-23] MEDS: PANTOPRAZOLE 40 MG TABLET PO ×2 (09:16→18:10)
[2024-06-23] MEDS: APIXABAN 2.5 MG TABLET 5 MG BY MOUTH ×2 (09:16→20:56)
[2024-06-23] MEDS: FUROSEMIDE 20 MG TABLET PO (09:17)
[2024-06-23] MEDS: INSULIN GLARGINE (*BKC) 1,000 UNITS/10 ML VIAL 30 UNITS SUB-Q (09:22)
[2024-06-23] MEDS: ERTAPENEM 1 GM/NS 50 ML 1 GM/50 ML BAG IVPB (10:29)
[2024-06-23] MEDS: INSULIN HUMAN LISPRO (*BKC) 1,000 UNITS/10 ML VIAL SUB-Q (11:53)
[2024-06-23 12:02] LABS: Glucose Point of Care 241 mg/dl (65-105)
[2024-06-23] MEDS: ACIDOPHILUS/BULGARICUS CHEWABLE TABLET 1 TABLET PO ×3 (13:28→20:56)
[2024-06-23 17:13] LABS: Glucose Point of Care 150 mg/dl (65-105)
[2024-06-23] MEDS: LOPERAMIDE HCL 2 MG CAPSULE PO (19:27)
[2024-06-23 21:18] LABS: Glucose Point of Care 346 mg/dl (65-105)
[2024-06-24] MEDS: oxyCODONE HCL (*CRX) 5 MG TAB IR 10 MG PO ×3 (03:48→12:04)
[2024-06-24] MEDS: LEVOTHYROXINE SODIUM 100 MCG, LEVOTHYROXINE SODIUM 25 MCG 125 MCG PO (06:06)
[2024-06-24] MEDS: ACETAMINOPHEN 325 MG TABLET 650 MG BY MOUTH (06:07)
[2024-06-24] MEDS: CYCLOBENZAPRINE HCL 10 MG TABLET PO (06:07)
[2024-06-24 07:50] LABS: Glucose Point of Care 278 mg/dl (65-105)
[2024-06-24 08:00] VITALS: BP 135/78; PULSE 88; RESP 14; TEMP 36.6; O2SAT 100
--- NOTE | 2024-06-24 08:08 | P.DS_ITS ---
DS: Admitting Diagnosis Discharge Date 06/24/24 Admitting Diagnosis weakness DS: Discharge Diagnosis Discharge Diagnosis (1) Fracture of femoral neck, right: Code(s): S72.001A - Fracture of unspecified part of neck of right femur, initial encounter for closed fracture Status: Acute Assessment and Plan: 06/19/24: * patient sustained a fall fracturing her right femoral neck. She underwent right hip percutaneous pinning on 05/15/2024 a [facility]. * Her 1st follow-up appointment was on 06/10/2024 where she became 50% weight- bearing as tolerated on the right lower extremity * continue with PT and OT * continue DVT prophylaxis with Eliquis * continue pain control * next follow-up appointment is on 07/10/2024 with Orthopedic surgeon * care conference plan for 06/20/24 (2) Acute UTI: Code(s): N39.0 - Urinary tract infection, site not specified Status: Acute Assessment and Plan: 06/19/24: * patient started complaining of urinary frequency with pain and burning with urination on 06/14/2024 * a UA was obtained and showed a urine specific gravity of 1.025, trace urine protein, 1+ urine ketone, positive nitrate, 1+ leukocyte, 21-30 urine WBC, 3+ urine bacteria. * Urine culture was obtained and shown Kelbs aerogenes. * Patient was initially on Keflex and due to list of allergies, culture sensitivities, and concerns with use of Levaquin and Cipro, it was decided to start ertapenem per Infectious disease pharmacist. Last dose will be on June 24. (3) Chronic hypoxemic respiratory failure: Code(s): J96.11 - Chronic respiratory failure with hypoxia Status: Acute Assessment and Plan: 06/19/24: * Chronically on 2-3 L NC * Stable (4) Diabetes type 2, uncontrolled: Status: Acute Assessment and Plan: 06/19/24: * Blood sugars ranging 137 to 223 * Hgb A1C 7.9 on 09/03/2022 * Hgb A1C 6.8 today * Accu checks AC/HS * will increase Lantus to 30 units tonight * continue to hold metformin * moderate dose SSI ordered * hypoglycemic protocol in place * Diabetic diet ordered (5) Atrial fibrillation: Code(s): I48.91 - Unspecified atrial fibrillation Status: Chronic Assessment and Plan: 06/19/24: * Continue amiodarone and Eliquis * Patient had episode of nosebleed on 06/08/24 aspirin and Eliquis was placed on hold and nursing applied tampon which was removed the next day, no new signs of active bleeding seen. * Eliquis was resumed * initial hemoglobin 8 * Today Hgb 8.0, stable (6) Iron deficiency anemia: Code(s): D50.9 - Iron deficiency anemia, unspecified Status: Acute Assessment and Plan: 06/19/24: * Hgb 8.1 on initial presentation * Continue Iron supplement * Hgb today 8.0 * continue to monitor stool for occult blood, currently on eliquis and ASA with recent hospitalization for GI bleed, EGD negative but no colonoscopy done DS: Summary Hospital Course Reason for hospitalization: weakness, rehab Hospital Course: This is a 58-year-old female with a past medical history of atrial fibrillation on Eliquis, hypertension, diabetes, and congestive heart failure who presents to [facility] for further PT and OT for deconditioning and weakness. She initially presented to an outside hospital with complaints of GI bleeding and was transferred to [facility] for further workup. During that hospitalization she fell and sustained a right femoral neck fracture for which she un
--- NOTE | 2024-06-24 08:08 | PM.DS ---
DS: Admitting Diagnosis Discharge Date 06/24/24 Admitting Diagnosis weakness DS: Discharge Diagnosis Discharge Diagnosis (1) Fracture of femoral neck, right: Code(s): S72.001A - Fracture of unspecified part of neck of right femur, initial encounter for closed fracture Status: Acute Assessment and Plan: 06/19/24: patient sustained a fall fracturing her right femoral neck. She underwent right hip percutaneous pinning on 05/15/2024 a [facility]. Her 1st follow-up appointment was on 06/10/2024 where she became 50% weight-bearing as tolerated on the right lower extremity continue with PT and OT continue DVT prophylaxis with Eliquis continue pain control next follow-up appointment is on 07/10/2024 with Orthopedic surgeon care conference plan for 06/20/24 (2) Acute UTI: Code(s): N39.0 - Urinary tract infection, site not specified Status: Acute Assessment and Plan: 06/19/24: patient started complaining of urinary frequency with pain and burning with urination on 06/14/2024 a UA was obtained and showed a urine specific gravity of 1.025, trace urine protein, 1+ urine ketone, positive nitrate, 1+ leukocyte, 21-30 urine WBC, 3+ urine bacteria. Urine culture was obtained and shown Kelbs aerogenes. Patient was initially on Keflex and due to list of allergies, culture sensitivities, and concerns with use of Levaquin and Cipro, it was decided to start ertapenem per Infectious disease pharmacist. Last dose will be on June 24. (3) Chronic hypoxemic respiratory failure: Code(s): J96.11 - Chronic respiratory failure with hypoxia Status: Acute Assessment and Plan: 06/19/24: Chronically on 2-3 L NC Stable (4) Diabetes type 2, uncontrolled: Status: Acute Assessment and Plan: 06/19/24: Blood sugars ranging 137 to 223 Hgb A1C 7.9 on 09/03/2022 Hgb A1C 6.8 today Accu checks AC/HS will increase Lantus to 30 units tonight continue to hold metformin moderate dose SSI ordered hypoglycemic protocol in place Diabetic diet ordered (5) Atrial fibrillation: Code(s): I48.91 - Unspecified atrial fibrillation Status: Chronic Assessment and Plan: 06/19/24: Continue amiodarone and Eliquis Patient had episode of nosebleed on 06/08/24 aspirin and Eliquis was placed on hold and nursing applied tampon which was removed the next day, no new signs of active bleeding seen. Eliquis was resumed initial hemoglobin 8 Today Hgb 8.0, stable (6) Iron deficiency anemia: Code(s): D50.9 - Iron deficiency anemia, unspecified Status: Acute Assessment and Plan: 06/19/24: Hgb 8.1 on initial presentation Continue Iron supplement Hgb today 8.0 continue to monitor stool for occult blood, currently on eliquis and ASA with recent hospitalization for GI bleed, EGD negative but no colonoscopy done DS: Summary Hospital Course Reason for hospitalization: weakness, rehab Hospital Course: This is a 58-year-old female with a past medical history of atrial fibrillation on Eliquis, hypertension, diabetes, and congestive heart failure who presents to [facility] for further PT and OT for deconditioning and weakness. She initially presented to an outside hospital with complaints of GI bleeding and was transferred to [facility] for further workup. During that hospitalization she fell and sustained a right femoral neck fracture for which she underwent right hip percutaneous pinning on 05/15. She then discharged to acute rehab at [place] for further PT/OT. She presents to [facility] bed program for further PT/OT as she continues to have weakness and difficulty with transfers. During her stay she worked with PT and OT with increasing ambulation and distance achieved. She displayed increased tolerance towards exercise and ADLs. She did have one occurrence of a nose bleed which required sara
[2024-06-24] MEDS: ASPIRIN 81 MG CHEWABLE TABLET PO (08:09)
[2024-06-24] MEDS: metFORMIN HCL 500 MG TABLET PO (08:09)
[2024-06-24] MEDS: MIDODRINE HCL 2.5 MG TABLET 10 MG BY MOUTH ×2 (08:10→12:04)
[2024-06-24] MEDS: ONDANSETRON HCL ODT 4 MG TABLET PO (08:15)
[2024-06-24] MEDS: INSULIN HUMAN LISPRO (*BKC) 1,000 UNITS/10 ML VIAL SUB-Q (08:22)
[2024-06-24 08:51] LABS: Basophils Absolute Auto 0.08 K/mm3 (0.00-0.10); Basophils Percent Auto 1.2 % (0.0-1.0); Eosinophils Absolute Auto 0.09 K/mm3 (0.02-0.50); Eosinophils Percent Auto 1.3 % (1.0-6.0); Hematocrit 34.3 % (35.0-49.0); Hemoglobin 9.2 g/dL (12.0-15.0); Immature Granulocyte Absolute 0.11 K/mm3 (0.00-0.00); Immature Granulocyte Percent A 1.6 % (0.0-0.0); Lymphocytes Percent Auto 23.9 % (18.0-42.0); Mean Corpuscular HGB Conc 26.8 g/dL (32-36); Mean Corpuscular Hemoglobin 20.9 pg (27.0-31.0); Mean Platelet Volume 9.1 fl (9.2-11.8); Monocytes Absolute Auto 0.48 K/mm3 (0.10-0.90); Monocytes Percent Auto 7.2 % (2.0-11.0); Neutrophils Absolute Auto 4.33 K/mm3 (1.70-7.20); Neutrophils Percent Auto 64.8 % (50.0-70.0); Nucleated Red Blood Cells Absolute Auto 0.03 K/mm3 (0.00-0.00); Nucleated Red Blood Cells Perc 0.4 % (0-0.0); Platelet Count Result 413 K/mm3 (150-420); Red Cell Distribution Width 24.4 % (11.6-14.4); White Blood Count 6.7 K/mm3 (4.8-10.8)
[2024-06-24 09:05] LABS: Alanine Aminotransferase 40 U/L (14-59); Albumin Level 3.9 g/dL (3.4-5.0); Alkaline Phosphatase 95 U/L (46-116); Anion Gap 6 mmol/L (4-12); Aspartate Amino Transferase 12 U/L (15-37); Bilirubin,Total 0.4 mg/dL (0.00-1.00); Blood Urea Nitrogen 17 mg/dL (7-18); Calcium 8.8 mg/dL (8.5-10.1); Carbon Dioxide 35 mmol/L (21-32); Chloride 99 mmol/L (98-108); Estimated CRCL calculation 60 ml/min; Estimated Glomerular Filt Rate > 60; Glucose 308 mg/dL (70-99); Osmolality Calculated 303 mOsm/kg (285-295); Potassium 3.9 mmol/L (3.5-5.1); Sodium 140 mmol/L (136-145); Total Protein 6.8 g/dL (6.4-8.2)
[2024-06-24] MEDS: POTASSIUM CHLORIDE 20 MEQ ER TABLET PO (09:10)
[2024-06-24] MEDS: APIXABAN 2.5 MG TABLET 5 MG BY MOUTH (09:11)
[2024-06-24] MEDS: DULoxetine HCL 30 MG CAPSULE.DR 60 MG PO (09:11)
[2024-06-24] MEDS: ATORVASTATIN 10 MG TABLET 20 MG PO (09:12)
[2024-06-24] MEDS: rOPINIRole HCL 0.25 MG TABLET PO (09:15)
[2024-06-24 09:16] VITALS: PULSE 85
[2024-06-24] MEDS: AMIODARONE HCL 200 MG TABLET PO (09:16)
[2024-06-24] MEDS: SACUBITRIL/VALSARTAN 24-26 MG TABLET 1 TAB PO (09:16)
[2024-06-24] MEDS: PANTOPRAZOLE 40 MG TABLET PO (09:16)
[2024-06-24] MEDS: ACIDOPHILUS/BULGARICUS CHEWABLE TABLET 1 TABLET PO (09:16)
[2024-06-24] MEDS: FERROUS SULFATE 325 MG TABLET DR PO (09:16)
[2024-06-24] MEDS: METOPROLOL TARTRATE 12.5 MG TABLET PO (09:16)
[2024-06-24] MEDS: CALCIUM/VITAMIN D 250 MG/3.125 MCG (125 I.U.) TABLET 2 TABLET PO (09:17)
[2024-06-24] MEDS: FUROSEMIDE 20 MG TABLET PO (09:17)
[2024-06-24] MEDS: ERTAPENEM 1 GM/NS 50 ML 1 GM/50 ML BAG IVPB (09:22)
[2024-06-24] MEDS: INSULIN GLARGINE (*BKC) 1,000 UNITS/10 ML VIAL 30 UNITS SUB-Q (09:31)
[2024-06-24 11:58] LABS: Glucose Point of Care 173 mg/dl (65-105)
[2024-06-24 14:08] VITALS: O2SAT 100
--- NOTE | 2024-06-24 14:12 | PC.NURSE ---
Pt discharged to home and family care. Discharge instructions given to pt and spouse. Medications reviewed with pt and spouse. Prescriptions given to pt for nasal spray and iron tabs. Fall precautions reviewed. Post hospital follow up appointments reviewed. Pt taken to family car via WC by RN.
--- NOTE | 2024-06-26 12:18 | PC.NURSE ---
discharge call back attempted, no answer
--- NOTE | 2024-06-27 10:39 | PC.NURSE ---
Discharge call back complete, doing well, staff were great, no questions regarding dc instructions. Had a very good experience at our facility
== END 2024-06-24 14:00 | disposition home or self-care (01) | DRG 560 ==
PROVIDERS: Nurse Practitioner Acute Care; Nurse Practitioner Family; Admitting Provider Internal Medicine; PCP Internal Medicine; Visit Provider Nurse Practitioner Acute Care
DX: S72.001D Fracture of unspecified part of neck of right femur, subsequent encounter for closed fracture with routine healing (principal); I48.20 Chronic atrial fibrillation, unspecified; N39.0 Urinary tract infection, site not specified; J96.11 Chronic respiratory failure with hypoxia; M47.12 Other spondylosis with myelopathy, cervical region; I11.0 Hypertensive heart disease with heart failure; I50.9 Heart failure, unspecified; D50.9 Iron deficiency anemia, unspecified; E11.649 Type 2 diabetes mellitus with hypoglycemia without coma; E78.5 Hyperlipidemia, unspecified; E11.42 Type 2 diabetes mellitus with diabetic polyneuropathy; R04.0 Epistaxis; M79.7 Fibromyalgia; M19.90 Unspecified osteoarthritis, unspecified site; M47.22 Other spondylosis with radiculopathy, cervical region; M54.9 Dorsalgia, unspecified; G89.29 Other chronic pain; G47.30 Sleep apnea, unspecified; F32.A Depression, unspecified; F41.9 Anxiety disorder, unspecified; Z79.01 Long term (current) use of anticoagulants; Z85.850 Personal history of malignant neoplasm of thyroid; Z98.1 Arthrodesis status; Z87.891 Personal history of nicotine dependence; Z79.82 Long term (current) use of aspirin; Z79.4 Long term (current) use of insulin
CPT/HCPCS: 36415; 80053; 81001; 82947; 82948; 83036; 85025; 85027; 87077; 87086; 87088; 87186; 93005; 97110; 97161; 97165; 97530; 97535; A9270; J1335; J1815